=== PATIENT | male | born 1950 | race Caucasian/White ===

== ENCOUNTER → 2017-02-03 | Outpatient (CLI) | payer BC ==
[~2017-02-03] MED LIST: ASPI81CH59 PO; CLOP75TA28 PO; LIS5T PO; MAGN400C2 PO; MULTTAB61 PO
== END | disposition home or self-care (01) ==
LOC: Rad HDHVI 14:52
PROVIDERS: ATTEND Internal Medicine Cardiovascular Disease
DX: I08.2 Rheumatic disorders of both aortic and tricuspid valves (principal); Z95.1 Presence of aortocoronary bypass graft
CPT/HCPCS: 93306

== ENCOUNTER → 2017-02-10 | Outpatient (CLI) | payer BC ==
[~2017-02-10] VITALS: Ht 180.3 cm; Wt 74.8 kg
[~2017-02-10] MED LIST changes: +ADENOSINE 63 MG in GIVE UN-DILUTED 0 ML IV ONE; +ADENOSINE 90 MG/30 ML INJ IV ONE
== END | disposition home or self-care (01) ==
LOC: Rad HDHVI 14:35
PROVIDERS: ATTEND Internal Medicine Cardiovascular Disease
DX: I11.0 Hypertensive heart disease with heart failure (principal); I50.42 Chronic combined systolic (congestive) and diastolic (congestive) heart failure; I63.9 Cerebral infarction, unspecified; E78.00 Pure hypercholesterolemia, unspecified
CPT/HCPCS: 78452; 93005; 96374; 96375; A9500; J0153

== ENCOUNTER → 2017-04-09 | Outpatient (CLI) | payer BC ==
[~2017-04-09] MED LIST changes: -ADENOSINE 63 MG in GIVE UN-DILUTED 0 ML IV ONE; -ADENOSINE 90 MG/30 ML INJ IV ONE; +IOHEXOL 350 MG/ML 100ML IJ ONE; +READI-CAT 2 (BARIUM SULF)(VANILLA SMOOTHIE) 450ML ONE
[2017-04-09 15:10] VITALS: BP 140/93
[2017-04-09 15:50] VITALS: BP 151/90
== END | disposition home or self-care (01) ==
LOC: Rad HDHVI 15:02
PROVIDERS: ATTEND Internal Medicine Cardiovascular Disease
DX: K57.30 Diverticulosis of large intestine without perforation or abscess without bleeding (principal); K40.20 Bilateral inguinal hernia, without obstruction or gangrene, not specified as recurrent; K59.00 Constipation, unspecified; N40.0 Benign prostatic hyperplasia without lower urinary tract symptoms; I70.0 Atherosclerosis of aorta; I70.1 Atherosclerosis of renal artery; I77.811 Abdominal aortic ectasia; J98.11 Atelectasis
CPT/HCPCS: 74177; 82565; G0463; Q9967; 96374

== ENCOUNTER → 2018-05-13 | Outpatient (CLI) | payer MEDICARE, OTHER ==
[~2018-05-13] MED LIST changes: -IOHEXOL 350 MG/ML 100ML IJ ONE; -READI-CAT 2 (BARIUM SULF)(VANILLA SMOOTHIE) 450ML ONE
== END | disposition home or self-care (01) ==
LOC: Rad HDHVI 15:12
PROVIDERS: ATTEND Internal Medicine Cardiovascular Disease
DX: I35.1 Nonrheumatic aortic (valve) insufficiency (principal); I10 Essential (primary) hypertension; E78.5 Hyperlipidemia, unspecified; Z86.73 Personal history of transient ischemic attack (TIA), and cerebral infarction without residual deficits
CPT/HCPCS: 93306

== ENCOUNTER → 2018-05-26 | Outpatient (CLI) | payer MEDICARE ==
[~2018-05-26] VITALS: Ht 180.3 cm; Wt 82.6 kg
[~2018-05-26] MED LIST changes: +ADENOSINE 69 MG in GIVE UN-DILUTED 0 ML IV ONE; +ADENOSINE 90 MG/30 ML INJ IV ONE
[2018-05-26 15:59] LABS: White Blood Cell 6.5 10^3/uL (4.4-10.8)
[2018-05-26 16:03] LABS: Basophils # (auto) 0 uL; Basophils % (auto) 0.4 % (0.0-2.0); Eosinophils # (auto) 0.1 uL; Eosinophils % (auto) 2.1 % (0.0-7.0); Hematocrit 52.7 % (41.0-53.0); Hemoglobin 18.4 g/dL (13.5-17.5); Lymphocytes # (auto) 2.2 uL; Lymphocytes % (auto) 33.4 % (10.0-50.0); Mean Corpuscular Hemoglobin 33.5 pg (28.0-32.0); Mean Corpuscular Hgb Conc. 34.9 g/dL (32.0-36.0); Mean Corpuscular Volume 95.9 fL (80.0-100.0); Monocytes # (auto) 0.6 uL; Monocytes % (auto) 9.2 % (0.0-12.0); Neutrophils # (auto) 3.5 uL; Neutrophils % (auto) 54.9 % (37.0-80.0); Nucleated Red Blood Cells % 0.6 %; Platelet Count (auto) 181 10^3/uL (140-450); Red Cell Distribution Width 12.9 % (11.8-14.3)
[2018-05-26 16:07] LABS: Albumin 3.6 g/dL (3.4-5.0); BUN/Creatinine Ratio 13.5; Potassium 4.2 mmol/L (3.5-5.1)
[2018-05-26 16:10] LABS: Total Protein 7.9 g/dL (6.4-8.2)
[2018-05-26 16:16] LABS: Free T4 (Free Thyroxine) 1.03 ng/dL (0.89-1.76); Prostate Specific Antigen 3.43 ng/mL (0.0-4.0)
== END | disposition home or self-care (01) ==
LOC: Rad HDHVI 14:16
PROVIDERS: ATTEND Internal Medicine Cardiovascular Disease
DX: E78.5 Hyperlipidemia, unspecified (principal); I10 Essential (primary) hypertension; E03.9 Hypothyroidism, unspecified; E11.9 Type 2 diabetes mellitus without complications; E55.9 Vitamin D deficiency, unspecified; D51.9 Vitamin B12 deficiency anemia, unspecified; C61 Malignant neoplasm of prostate; Z86.73 Personal history of transient ischemic attack (TIA), and cerebral infarction without residual deficits
CPT/HCPCS: 36415; 78452; 80053; 80061; 82306; 82607; 83036; 84153; 84403; 84439; 84443; 85025; 93005; 96374; 96375; A9500; J0153

== ENCOUNTER → 2020-02-08 | Outpatient (CLI) | payer MEDICARE, OTHER ==
[~2020-02-08] MED LIST changes: -ADENOSINE 69 MG in GIVE UN-DILUTED 0 ML IV ONE; -ADENOSINE 90 MG/30 ML INJ IV ONE; +MULT-1018 PO; -MULTTAB61 PO; +levoFLOXacin 500MG 100 ML IV ONE
[2020-02-08 12:00] VITALS: BP 142/97
--- NOTE | 2020-02-08 12:00 | NUR ---
CLINIC PT ARRIVED TO THE CHF CLINIC FROM BACK OFFICE WITH ORDERS FOR IV ANTIBIOTICS. A/OX4, AMBULATORY WITH CANE, BREATHING IS EVEN AND UNLABORED. PT HAS A COUGH AND A N95 MASK WAS PLACED ON THE PT A PRECAUTIONARY MEASURE DUE TO COVID 19.
--- NOTE | 2020-02-08 12:35 | NUR ---
IV insertion IV access obtained, via clean sterile technique by inserting 22 gauge catheter at after 1 attempt(s). IV secured properly. No trauma to site. Patient tolerated procedure well. LABS DRAWN AND SENT NOTE INSERTED BY MARIA DOLORES KENNY
--- NOTE | 2020-02-08 13:51 | NUR ---
EKG SINUS TACHYCARDIA 119 PT IS ASYMPTOMATIC
--- NOTE | 2020-02-08 13:52 | NUR ---
IV removal IV DC'd with sterile technique, catheter fully intact. Pressure dressing applied to site. Patient tolerated procedure well. Discharged with aftercare instructions per MD. NOTE: REMOVED BY MARIA DOLORES KENNY
[2020-02-08 14:05] LABS: Basophils # (auto) 0.1 10 ^3/uL (0-0.2); Basophils % (auto) 1.1 % (0.0-2.0); Eosinophils # (auto) 0.1 10 ^3/uL (0-0.8); Eosinophils % (auto) 1.5 % (0.0-7.0); Hematocrit 50.5 % (41.0-53.0); Hemoglobin 17.2 g/dL (13.5-17.5); Lymphocytes # (auto) 1.7 10 ^3/uL (0.4-5.4); Lymphocytes % (auto) 28.2 % (10.0-50.0); Mean Corpuscular Hemoglobin 33.3 pg (28.0-32.0); Mean Corpuscular Volume 97.9 fL (80.0-100.0); Monocytes # (auto) 0.7 10 ^3/uL (0-1.3); Monocytes % (auto) 10.8 % (0.0-12.0); Neutrophils # (auto) 3.6 10 ^3/uL (1.6-8.6); Neutrophils % (auto) 58.4 % (37.0-80.0); Nucleated Red Blood Cells % 0.1 %; Platelet Count (auto) 148 10^3/uL (140-450); Red Blood Cells 5.16 10^6/uL (4.5-5.90); Red Cell Distribution Width 14.1 % (11.8-14.3); White Blood Cell 6.1 10^3/uL (4.4-10.8)
--- NOTE | 2020-02-08 14:44 | NUR ---
ADDITIONAL LABS DRAWN AND SENT FOR POSSIBLE PRE OP WITH MD JIMENEZ
[2020-02-08 15:10] VITALS: BP 147/98
--- NOTE | 2020-02-08 15:10 | NUR ---
Discharge Instructions See e-MAR for any mediations given with this visit. Patient education given on disease process. Patient verbalized understanding. Previous labs reviewed. Patient discharged in stable condition, AND IS HEMODYNAMICALLY STABLE with after care instructions and follow up appointment ON FRIDAY. NOTE [place] IV [phone] ADMIN BY MARIA DOLORES KENNY EKG DONE BY NICO PERDOMO REVIEWED BY CELINE KENNY
[2020-02-08 15:32] LABS: INR 1.2 (0.9-1.15); Partial Thromboplastin Time 26.8 sec (23.0-31.2)
[2020-02-08 15:35] LABS: BUN/Creatinine Ratio 9.8; Calcium 9.8 mg/dL (8.5-10.1); Magnesium 2.4 mg/dL (1.6-2.6); Potassium 4.1 mmol/L (3.5-5.1)
== END | disposition home or self-care (01) ==
LOC: CHF HDHVI 12:17
PROVIDERS: ATTEND Internal Medicine Cardiovascular Disease
DX: J06.9 Acute upper respiratory infection, unspecified (principal); R79.1 Abnormal coagulation profile; I49.9 Cardiac arrhythmia, unspecified; I10 Essential (primary) hypertension; D64.9 Anemia, unspecified; R70.0 Elevated erythrocyte sedimentation rate; R06.02 Shortness of breath; R00.0 Tachycardia, unspecified
CPT/HCPCS: 36415; 71046; 80048; 83735; 85025; 85610; 85652; 85730; 93005; 96365; G0463; J1956

== ENCOUNTER → 2020-06-09 | Outpatient (CLI) | payer OTHER ==
[~2020-06-09] MED LIST changes: -levoFLOXacin 500MG 100 ML IV ONE
[2020-06-09 14:42] LABS: Monocytes # (auto) 0.7 10 ^3/uL (0-1.3); Neutrophils # (auto) 3.5 10 ^3/uL (1.6-8.6); Nucleated Red Blood Cells % 0.1 %; Red Cell Distribution Width 13.3 % (11.8-14.3)
[2020-06-09 14:44] LABS: Basophils # (auto) 0 10 ^3/uL (0-0.2); Basophils % (auto) 0.6 % (0.0-2.0); Eosinophils # (auto) 0.1 10 ^3/uL (0-0.8); Eosinophils % (auto) 2.1 % (0.0-7.0); Hematocrit 53.7 % (41.0-53.0); Hemoglobin 18.5 g/dL (13.5-17.5); Lymphocytes # (auto) 2.3 10 ^3/uL (0.4-5.4); Mean Corpuscular Hemoglobin 34.1 pg (28.0-32.0); Mean Corpuscular Hgb Conc. 34.4 g/dL (32.0-36.0); Mean Corpuscular Volume 99.1 fL (80.0-100.0); Monocytes % (auto) 10.4 % (0.0-12.0); Neutrophils % (auto) 52.9 % (37.0-80.0); Platelet Count (auto) 168 10^3/uL (140-450); Red Blood Cells 5.42 10^6/uL (4.5-5.90); White Blood Cell 6.7 10^3/uL (4.4-10.8)
[2020-06-09 16:19] LABS: Albumin 3.1 g/dL (3.4-5.0); Anion Gap 8 (5-15); Blood Urea Nitrogen 10 mg/dL (7-18); Calcium 9.2 mg/dL (8.5-10.1); Carbon Dioxide 25 mmol/L (21-32); Chloride 106 mmol/L (98-107); Glucose 79 mg/dL (74-106); Potassium 4.4 mmol/L (3.5-5.1); Sodium 139 mmol/L (136-145)
[2020-06-09 16:23] LABS: Alanine Aminotransferase 31 U/L (16-61); Alkaline Phosphatase 136 U/L (45-117); Aspartate Aminotransferase 46 U/L (15-37); BUN/Creatinine Ratio 9.3; Bilirubin, Total 1.1 mg/dL (0.2-1.0); Cholesterol 146 mg/dL (< 200); GFR African American 87 mL/min; GFR Non-African American 72 mL/min; HDL Cholesterol 53 mg/dL (40-59); LDL Cholesterol 91 mg/dL (< 100); Total Protein 8.5 g/dL (6.4-8.2); Triglycerides 103 mg/dL (< 150)
== END | disposition home or self-care (01) ==
LOC: LAB 14:29
PROVIDERS: ATTEND Nurse Practitioner
DX: I10 Essential (primary) hypertension (principal); E78.5 Hyperlipidemia, unspecified
CPT/HCPCS: 36415; 80053; 80061; 84443; 85025

== ENCOUNTER → 2020-08-01 | Outpatient (CLI) | payer OTHER ==
[~2020-08-01] VITALS: Ht 177.8 cm; Wt 81.6 kg
[~2020-08-01] MED LIST changes: +ADENOSINE 69 MG in GIVE UN-DILUTED 0 ML IV ONE; +ADENOSINE 90 MG/30 ML INJ IV ONE
== END | disposition home or self-care (01) ==
LOC: Rad HDHVI 12:59
PROVIDERS: ATTEND Internal Medicine Cardiovascular Disease
DX: I11.0 Hypertensive heart disease with heart failure (principal); I50.42 Chronic combined systolic (congestive) and diastolic (congestive) heart failure; I25.5 Ischemic cardiomyopathy; I25.10 Atherosclerotic heart disease of native coronary artery without angina pectoris; E78.5 Hyperlipidemia, unspecified; Z95.0 Presence of cardiac pacemaker; Z95.1 Presence of aortocoronary bypass graft
CPT/HCPCS: 78452; 93005; 96374; 96375; A9500; J0153

== ENCOUNTER → 2020-08-16 | Outpatient (CLI) | payer OTHER ==
[~2020-08-16] MED LIST changes: -ADENOSINE 69 MG in GIVE UN-DILUTED 0 ML IV ONE; -ADENOSINE 90 MG/30 ML INJ IV ONE
== END | disposition home or self-care (01) ==
LOC: Rad HDHVI 15:03
PROVIDERS: ATTEND Internal Medicine Cardiovascular Disease
DX: I10 Essential (primary) hypertension (principal); R06.02 Shortness of breath
CPT/HCPCS: 93306

== ENCOUNTER → 2021-07-18 | Outpatient (CLI) | payer OTHER ==
[2021-07-18 14:45] LABS: Basophils # (auto) 0 10 ^3/uL (0-0.2); Basophils % (auto) 0.7 % (0.0-2.0); Eosinophils # (auto) 0.2 10 ^3/uL (0-0.8); Eosinophils % (auto) 3.1 % (0.0-7.0); Hematocrit 47.5 % (41.0-53.0); Hemoglobin 16.5 g/dL (13.5-17.5); Lymphocytes # (auto) 1.5 10 ^3/uL (0.4-5.4); Lymphocytes % (auto) 28.3 % (10.0-50.0); Mean Corpuscular Hemoglobin 33.2 pg (28.0-32.0); Mean Corpuscular Hgb Conc. 34.8 g/dL (32.0-36.0); Mean Corpuscular Volume 95.7 fL (80.0-100.0); Monocytes # (auto) 0.6 10 ^3/uL (0-1.3); Monocytes % (auto) 11.5 % (0.0-12.0); Neutrophils # (auto) 2.9 10 ^3/uL (1.6-8.6); Neutrophils % (auto) 56.4 % (37.0-80.0); Nucleated Red Blood Cells % 0.1 %; Red Blood Cells 4.97 10^6/uL (4.5-5.90); Red Cell Distribution Width 14.1 % (11.8-14.3); White Blood Cell 5.2 10^3/uL (4.4-10.8)
[2021-07-18 15:04] LABS: Calcium 9.2 mg/dL (8.5-10.1); Potassium 4.2 mmol/L (3.5-5.1)
[2021-07-18 15:09] LABS: BUN/Creatinine Ratio 11.1; Bilirubin, Total 1.2 mg/dL (0.2-1.0); Total Protein 7.6 g/dL (6.4-8.2)
[2021-07-18 16:39] LABS: Urine Blood Negative /uL (Negative); Urine Specific Gravity 1.029 (1.001-1.035)
== END | disposition home or self-care (01) ==
LOC: LAB 14:18
PROVIDERS: ATTEND Nurse Practitioner
DX: E78.5 Hyperlipidemia, unspecified (principal); I10 Essential (primary) hypertension; E03.9 Hypothyroidism, unspecified; R30.0 Dysuria
CPT/HCPCS: 36415; 80053; 80061; 81003; 84153; 84443; 85025

== ENCOUNTER → 2022-06-26 | Outpatient (CLI) | payer OTHER ==
[2022-06-26 13:04] LABS: Urine Blood Negative /uL (Negative); Urine Specific Gravity 1.025 (1.001-1.035)
[2022-06-26 13:05] LABS: Basophils # (auto) 0 10 ^3/uL (0-0.2); Basophils % (auto) 0.7 % (0.0-2.0); Eosinophils # (auto) 0.2 10 ^3/uL (0-0.8); Eosinophils % (auto) 3.3 % (0.0-7.0); Hemoglobin 16.3 g/dL (13.5-17.5); Lymphocytes # (auto) 2.3 10 ^3/uL (0.4-5.4); Lymphocytes % (auto) 36.1 % (10.0-50.0); Mean Corpuscular Hemoglobin 31.6 pg (28.0-32.0); Monocytes # (auto) 0.8 10 ^3/uL (0-1.3); Monocytes % (auto) 12.5 % (0.0-12.0); Neutrophils # (auto) 3.1 10 ^3/uL (1.6-8.6); Neutrophils % (auto) 47.4 % (37.0-80.0); Nucleated Red Blood Cells % 0.1 %; Red Blood Cells 5.16 10^6/uL (4.5-5.90); White Blood Cell 6.5 10^3/uL (4.4-10.8)
[2022-06-26 13:33] LABS: Calcium 8.8 mg/dL (8.5-10.1)
[2022-06-26 13:39] LABS: Bilirubin, Total 1.5 mg/dL (0.2-1.0); Potassium 4.1 mmol/L (3.5-5.1); Total Protein 7.7 g/dL (6.4-8.2)
== END | disposition home or self-care (01) ==
LOC: LAB 12:41
PROVIDERS: ATTEND Nurse Practitioner
DX: I10 Essential (primary) hypertension (principal); E03.9 Hypothyroidism, unspecified; E78.5 Hyperlipidemia, unspecified
CPT/HCPCS: 36415; 80053; 80061; 81003; 84443; 85025

== ENCOUNTER 2022-08-19 15:50 | Inpatient (IN) | payer OTHER ==
[~2022-08-19] VITALS: Ht 180.3 cm; Wt 78.1 kg
[2022-08-19] MEDS ORDERED: ASPirin 81 mg TAB PO ONE (16:45)
[2022-08-19 17:20] LABS: Basophils # (auto) 0 10 ^3/uL (0-0.2); Basophils % (auto) 0.5 % (0.0-2.0); Eosinophils # (auto) 0.1 10 ^3/uL (0-0.8); Eosinophils % (auto) 1.1 % (0.0-7.0); Hematocrit 47.4 % (41.0-53.0); Hemoglobin 16.1 g/dL (13.5-17.5); Lymphocytes # (auto) 1.2 10 ^3/uL (0.4-5.4); Lymphocytes % (auto) 22.5 % (10.0-50.0); Mean Corpuscular Hemoglobin 31.3 pg (28.0-32.0); Mean Corpuscular Volume 92.1 fL (80.0-100.0); Monocytes # (auto) 0.7 10 ^3/uL (0-1.3); Monocytes % (auto) 13.5 % (0.0-12.0); Neutrophils # (auto) 3.2 10 ^3/uL (1.6-8.6); Neutrophils % (auto) 62.4 % (37.0-80.0); Nucleated Red Blood Cells % 0.1 %; Red Blood Cells 5.14 10^6/uL (4.5-5.90); Red Cell Distribution Width 14.5 % (11.8-14.3); White Blood Cell 5.2 10^3/uL (4.4-10.8)
[2022-08-19 17:36] LABS: Albumin 2.8 g/dL (3.4-5.0); Calcium 8.8 mg/dL (8.5-10.1); Magnesium 2.3 mg/dL (1.6-2.6)
[2022-08-19 17:41] LABS: INR 1.21 (0.9-1.15); Partial Thromboplastin Time 30.7 sec (24.6-33.4)
[2022-08-19 17:46] LABS: BUN/Creatinine Ratio 9.9 (10.0-20.0); Bilirubin, Total 1.3 mg/dL (0.2-1.0); Total Protein 7.3 g/dL (6.4-8.2)
[2022-08-19] MEDS ORDERED: MORPHINE SULFATE INJ 2 MG/ml SYRG IV PRN (22:15)
[2022-08-19] MEDS ORDERED: ACETAMINOPHEN 325 MG TAB PO PRN (22:15)
[2022-08-19] MEDS ORDERED: NITROGLYCERIN 0.4 MG SL TAB SL PRN (22:15)
[2022-08-19] MEDS: MAGNESIUM OXIDE 400 MG TAB PO SCH (22:22)
[2022-08-19] MEDS ORDERED: MECLIZINE HCL 25 MG TAB PO PRN (22:30)
[2022-08-19] MEDS: SODIUM CHLORIDE 0.9% 1,000 ML IV SCH (22:35)
[2022-08-20] MEDS ORDERED: ALBUTEROL SULF 2.5 MG/0.5ML(0.5%) NEB SOLN NEB PRN (00:30)
[2022-08-20 00:49] LABS: Urine Bacteria NONE SEEN /hpf (None Seen); Urine Blood Negative /uL (Negative); Urine Hyaline Cast FEW /lpf (0 - 2); Urine Mucus FEW (None Seen); Urine Specific Gravity 1.029 (1.001-1.035); Urine WBC 4 /hpf (0 - 3)
[2022-08-20 01:04] LABS: Alcohol, Urine < 3.0 mg/dL (0-10); Amphetamine Screen, Urine NEGATIVE (NEGATIVE); Barbiturate Scree,Urine NEGATIVE (NEGATIVE); Benzodiazephine Screen, Urine NEGATIVE (NEGATIVE); Cannabinoid Screen, Urine NEGATIVE (NEGATIVE); Cocaine Screen, Urine NEGATIVE (NEGATIVE); Opiate Scree,Urine NEGATIVE (NEGATIVE); Phencyclidine Screen, Urine NEGATIVE (NEGATIVE)
[2022-08-20 01:43] VITALS: BP 95/50
[2022-08-20 05:39] LABS: Basophils # (auto) 0 10 ^3/uL (0-0.2); Basophils % (auto) 0.6 % (0.0-2.0); Eosinophils # (auto) 0.2 10 ^3/uL (0-0.8); Eosinophils % (auto) 3.6 % (0.0-7.0); Hematocrit 41.6 % (41.0-53.0); Hemoglobin 14.5 g/dL (13.5-17.5); Lymphocytes # (auto) 1.8 10 ^3/uL (0.4-5.4); Lymphocytes % (auto) 35.1 % (10.0-50.0); Mean Corpuscular Hgb Conc. 34.9 g/dL (32.0-36.0); Mean Corpuscular Volume 91.8 fL (80.0-100.0); Monocytes # (auto) 0.7 10 ^3/uL (0-1.3); Monocytes % (auto) 13.2 % (0.0-12.0); Neutrophils # (auto) 2.4 10 ^3/uL (1.6-8.6); Neutrophils % (auto) 47.5 % (37.0-80.0); Nucleated Red Blood Cells % 0.1 %; Red Blood Cells 4.54 10^6/uL (4.5-5.90); Red Cell Distribution Width 14.7 % (11.8-14.3); White Blood Cell 5.1 10^3/uL (4.4-10.8)
[2022-08-20 05:55] LABS: Albumin 2.4 g/dL (3.4-5.0); Calcium 8.3 mg/dL (8.5-10.1); Potassium 4.1 mmol/L (3.5-5.1)
[2022-08-20 05:59] LABS: BUN/Creatinine Ratio 11.1 (10.0-20.0); Bilirubin, Total 1.1 mg/dL (0.2-1.0); Total Protein 6.5 g/dL (6.4-8.2)
[2022-08-20] MEDS ORDERED: LISINOPRIL 5 MG TAB PO SCH (10:00)
[2022-08-20] MEDS: ENOXAPARIN SOD 40 MG/0.4 ML SYRINGE SC SCH (10:00)
[2022-08-20] MEDS: MULTIPLE VITAMIN TAB PO SCH (10:18)
[2022-08-20] MEDS: MAGNESIUM OXIDE 400 MG TAB PO SCH ×2 (10:18→22:35)
[2022-08-20] MEDS: CLOPIDOGREL BISULFATE 75 MG TAB PO SCH (10:18)
[2022-08-20] MEDS: ASPirin 81 mg TAB PO SCH (10:19)
[2022-08-20] MEDS ORDERED: MECL1TAB42 PO (11:39)
[2022-08-20] MEDS: SODIUM CHLORIDE 0.9% 1,000 ML IV SCH (15:00)
[2022-08-20 22:00] VITALS: BP 125/70
[2022-08-20] MEDS: ATORVASTATIN 20 MG TAB PO SCH (22:35)
[2022-08-21] VITALS (7 sets, daily range): BP systolic 102–132; BP diastolic 64–78
[2022-08-21 05:55] LABS: Basophils # (auto) 0 10 ^3/uL (0-0.2); Basophils % (auto) 0.7 % (0.0-2.0); Eosinophils # (auto) 0.3 10 ^3/uL (0-0.8); Eosinophils % (auto) 5.5 % (0.0-7.0); Hematocrit 42.5 % (41.0-53.0); Hemoglobin 14.6 g/dL (13.5-17.5); Lymphocytes # (auto) 1.7 10 ^3/uL (0.4-5.4); Lymphocytes % (auto) 34.4 % (10.0-50.0); Mean Corpuscular Hemoglobin 31.7 pg (28.0-32.0); Mean Corpuscular Hgb Conc. 34.4 g/dL (32.0-36.0); Mean Corpuscular Volume 92.1 fL (80.0-100.0); Monocytes # (auto) 0.7 10 ^3/uL (0-1.3); Monocytes % (auto) 13.8 % (0.0-12.0); Neutrophils # (auto) 2.3 10 ^3/uL (1.6-8.6); Neutrophils % (auto) 45.6 % (37.0-80.0); Nucleated Red Blood Cells % 0.3 %; Red Blood Cells 4.62 10^6/uL (4.5-5.90); Red Cell Distribution Width 14.4 % (11.8-14.3)
[2022-08-21 06:25] LABS: Albumin 2.4 g/dL (3.4-5.0); BUN/Creatinine Ratio 12.5 (10.0-20.0); Bilirubin, Total 1.1 mg/dL (0.2-1.0); Calcium 8.5 mg/dL (8.5-10.1); Total Protein 6.4 g/dL (6.4-8.2)
[2022-08-21] MEDS: ENOXAPARIN SOD 40 MG/0.4 ML SYRINGE SC SCH (10:00)
[2022-08-21] MEDS: CLOPIDOGREL BISULFATE 75 MG TAB PO SCH (10:19)
[2022-08-21] MEDS: ASPirin 81 mg TAB PO SCH (10:19)
[2022-08-21] MEDS: MAGNESIUM OXIDE 400 MG TAB PO SCH ×2 (10:19→21:19)
[2022-08-21] MEDS: MULTIPLE VITAMIN TAB PO SCH (10:19)
[2022-08-21] MEDS: ATORVASTATIN 20 MG TAB PO SCH (21:19)
[2022-08-22 05:00] VITALS: BP 116/79
[2022-08-22 07:51] LABS: INR 1.21 (0.9-1.15); Partial Thromboplastin Time 29.3 sec (24.6-33.4)
[2022-08-22 08:00] VITALS: BP 98/63
[2022-08-22 09:00] VITALS: BP 98/63
[2022-08-22] MEDS: MULTIPLE VITAMIN TAB PO SCH (09:55)
[2022-08-22] MEDS: MAGNESIUM OXIDE 400 MG TAB PO SCH (09:55)
[2022-08-22] MEDS ORDERED: VANCOMYCIN 1GM/250ML 250 ML IV ONE (10:15)
[2022-08-22 16:56] VITALS: BP 130/91
== END 2022-08-22 20:36 | disposition home or self-care (01) | DRG 308 ==
LOC: ER 15:50 → TELE 22:18 → TELE-WESTW 08-20 21:38
PROVIDERS: ADMIT Nurse Practitioner Family; ATTEND Internal Medicine
DX: T82.120A Displacement of cardiac electrode, initial encounter (principal); I50.33 Acute on chronic diastolic (congestive) heart failure; J96.01 Acute respiratory failure with hypoxia; E44.0 Moderate protein-calorie malnutrition; J90 Pleural effusion, not elsewhere classified; D68.59 Other primary thrombophilia; H81.10 Benign paroxysmal vertigo, unspecified ear; I67.1 Cerebral aneurysm, nonruptured; I11.0 Hypertensive heart disease with heart failure; I49.3 Ventricular premature depolarization; I48.91 Unspecified atrial fibrillation; Y71.2 Prosthetic and other implants, materials and accessory cardiovascular devices associated with adverse incidents; E78.5 Hyperlipidemia, unspecified; J44.9 Chronic obstructive pulmonary disease, unspecified; E03.9 Hypothyroidism, unspecified; F17.200 Nicotine dependence, unspecified, uncomplicated; I25.10 Atherosclerotic heart disease of native coronary artery without angina pectoris; E11.51 Type 2 diabetes mellitus with diabetic peripheral angiopathy without gangrene; I49.5 Sick sinus syndrome; Z95.1 Presence of aortocoronary bypass graft; Z95.0 Presence of cardiac pacemaker; Z86.73 Personal history of transient ischemic attack (TIA), and cerebral infarction without residual deficits; Z79.899 Other long term (current) drug therapy; Z79.02 Long term (current) use of antithrombotics/antiplatelets; Z79.82 Long term (current) use of aspirin; Z80.9 Family history of malignant neoplasm, unspecified; Z82.49 Family history of ischemic heart disease and other diseases of the circulatory system; Z82.5 Family history of asthma and other chronic lower respiratory diseases; Z68.24 Body mass index [BMI] 24.0-24.9, adult
CPT/HCPCS: 36415; 70450; 71045; 80053; 80307; 81001; 82962; 83735; 83880; 84443; 84484; 85025; 85610; 85730; 86850; 86900; 86901; 93005; 93886; 97116; 97163; 97530; G0378

== ENCOUNTER → 2022-09-25 | Outpatient (CLI) | payer OTHER ==
[~2022-09-25] MED LIST changes: +ASCO500T11 PO; -ASPI81CH59 PO; +ATOR20TA PO; +CHOL50007 PO; +ESOM40CA39 PO; +LEVO50TA66 PO; -LIS5T PO; +MECL1TAB42 PO; +ZINC50TA7 PO
[2022-09-25 08:30] VITALS: BP 142/86
[2022-09-25 08:56] VITALS: BP 144/79
== END | disposition home or self-care (01) ==
LOC: Rad HDHVI 08:15
PROVIDERS: ATTEND Internal Medicine Cardiovascular Disease
DX: Z01.810 Encounter for preprocedural cardiovascular examination (principal); R00.0 Tachycardia, unspecified; I49.3 Ventricular premature depolarization; T82.190A Other mechanical complication of cardiac electrode, initial encounter; R07.89 Other chest pain; X58.XXXA Exposure to other specified factors, initial encounter; Z95.0 Presence of cardiac pacemaker
CPT/HCPCS: 71046; 93005; G0463

== ENCOUNTER 2022-09-26 09:01 | Day surgery (SDC) | payer OTHER ==
[2022-09-25 09:39] LABS: Basophils # (auto) 0 10 ^3/uL (0-0.2); Basophils % (auto) 0.6 % (0.0-2.0); Eosinophils # (auto) 0.1 10 ^3/uL (0-0.8); Eosinophils % (auto) 2.9 % (0.0-7.0); Hematocrit 46.8 % (41.0-53.0); Lymphocytes # (auto) 1.7 10 ^3/uL (0.4-5.4); Lymphocytes % (auto) 35.4 % (10.0-50.0); Mean Corpuscular Hemoglobin 31.5 pg (28.0-32.0); Mean Corpuscular Hgb Conc. 34.1 g/dL (32.0-36.0); Mean Corpuscular Volume 92.4 fL (80.0-100.0); Monocytes # (auto) 0.6 10 ^3/uL (0-1.3); Monocytes % (auto) 12.8 % (0.0-12.0); Neutrophils # (auto) 2.4 10 ^3/uL (1.6-8.6); Neutrophils % (auto) 48.3 % (37.0-80.0); Nucleated Red Blood Cells % 0.1 %; Red Blood Cells 5.07 10^6/uL (4.5-5.90); Red Cell Distribution Width 15.1 % (11.8-14.3); White Blood Cell 4.9 10^3/uL (4.4-10.8)
[2022-09-25 10:22] LABS: BUN/Creatinine Ratio 12.4 (10.0-20.0); Calcium 8.8 mg/dL (8.5-10.1); Potassium 4.3 mmol/L (3.5-5.1)
[2022-09-25 11:28] LABS: INR 1.19 (0.9-1.15); Partial Thromboplastin Time 30.2 sec (24.6-33.4)
[~2022-09-26] VITALS: Ht 180.3 cm; Wt 83.0 kg
[2022-09-26] MEDS ORDERED: VANCOMYCIN 1GM/250ML 250 ML IV ONE ×3 (10:00→13:14)
[2022-09-26] MEDS ORDERED: LIDOCAINE 2%HCL (LOCAL ANESTH.) INJ 20ML MDV ONE (13:09)
[2022-09-26] MEDS ORDERED: VANCOMYCIN HCL 1000 MG VL ONE (13:11)
[2022-09-26] MEDS ORDERED: fentaNYL CITRATE 100 MCG/2 ML VL ONE (13:11)
[2022-09-26] MEDS ORDERED: MIDAZOLAM HCL 2MG/2ML 2ml VIAL (1mg/ml) ONE (13:12)
== END 2022-09-26 16:44 | disposition home or self-care (01) ==
LOC: CATH 09:01
PROVIDERS: ATTEND Internal Medicine Cardiovascular Disease
DX: T82.120A Displacement of cardiac electrode, initial encounter (principal); I49.5 Sick sinus syndrome; I48.91 Unspecified atrial fibrillation; I25.5 Ischemic cardiomyopathy; Z86.73 Personal history of transient ischemic attack (TIA), and cerebral infarction without residual deficits; I50.9 Heart failure, unspecified; I11.0 Hypertensive heart disease with heart failure; Z95.1 Presence of aortocoronary bypass graft; Z79.899 Other long term (current) drug therapy; Y83.8 Other surgical procedures as the cause of abnormal reaction of the patient, or of later complication, without mention of misadventure at the time of the procedure
CPT/HCPCS: 33207; 33233; 33235; 36415; 71045; 80048; 85025; 85610; 85730; 93005; C1769; C1785; C1898; J2250; J3010; J3370; 99152; 99153

== ENCOUNTER → 2023-05-13 | Outpatient (CLI) | payer OTHER | END | disposition home or self-care (01) | LOC: Rad HDHVI 15:49 | PROVIDERS: ATTEND Internal Medicine Cardiovascular Disease | DX: I08.3 Combined rheumatic disorders of mitral, aortic and tricuspid valves (principal); I77.819 Aortic ectasia, unspecified site; I10 Essential (primary) hypertension; I73.9 Peripheral vascular disease, unspecified | CPT/HCPCS: 93306 ==

== ENCOUNTER → 2023-06-06 | Outpatient (CLI) | payer OTHER ==
[2023-06-06 13:32] LABS: Basophils # (auto) 0 10 ^3/uL (0-0.2); Basophils % (auto) 0.8 % (0.0-2.0); Eosinophils # (auto) 0.1 10 ^3/uL (0-0.8); Eosinophils % (auto) 4.1 % (0.0-7.0); Hematocrit 43.8 % (41.0-53.0); Hemoglobin 14.6 g/dL (13.5-17.5); Lymphocytes # (auto) 1.3 10 ^3/uL (0.4-5.4); Lymphocytes % (auto) 36.3 % (10.0-50.0); Mean Corpuscular Hemoglobin 31.5 pg (28.0-32.0); Mean Corpuscular Hgb Conc. 33.4 g/dL (32.0-36.0); Mean Corpuscular Volume 94.5 fL (80.0-100.0); Monocytes # (auto) 0.4 10 ^3/uL (0-1.3); Neutrophils # (auto) 1.7 10 ^3/uL (1.6-8.6); Neutrophils % (auto) 46.8 % (37.0-80.0); Nucleated Red Blood Cells % 0.1 %; Red Blood Cells 4.64 10^6/uL (4.5-5.90); White Blood Cell 3.6 10^3/uL (4.4-10.8)
[2023-06-06 13:36] LABS: Urine Bacteria NONE SEEN /hpf (None Seen); Urine Blood Negative /uL (Negative); Urine Clarity Clear (Clear); Urine Color Yellow (Yellow); Urine Hyaline Cast FEW /lpf (0 - 2); Urine Mucus FEW (None Seen); Urine Protein, UAD TRACE (Negative); Urine Specific Gravity 1.029 (1.001-1.035); Urine WBC 4 /hpf (0 - 3); Urine pH 5.5 (5.0-8.0)
[2023-06-06 13:53] LABS: Alanine Aminotransferase 21 U/L (7-40); Albumin 3.3 g/dL (3.2-4.8); Alkaline Phosphatase 96 U/L (46-116); Anion Gap 6 (5-15); Aspartate Aminotransferase 43 U/L (13-40); BUN/Creatinine Ratio 9.9 (10.0-20.0); Bilirubin, Total 1.6 mg/dL (0.2-1.0); Blood Urea Nitrogen 8 mg/dL (9-23); Calcium 9.2 mg/dL (8.5-10.1); Carbon Dioxide 28 mmol/L (20-30); Chloride 107 mmol/L (98-107); Cholesterol 123 mg/dL (< 200); Glucose 89 mg/dL (74-106); HDL Cholesterol 47 mg/dL (40-59); LDL Cholesterol 68 mg/dL (< 100); Potassium 4.2 mmol/L (3.5-5.1); Sodium 141 mmol/L (136-145); Total Protein 6.5 g/dL (5.7-8.2); Triglycerides 60 mg/dL (< 150)
[2023-06-07 08:06] LABS: PSA Free 0.81 ng/mL; Prostate Specific Antigen 4.8 ng/mL (0.0-4.0)
== END | disposition home or self-care (01) ==
LOC: LAB 13:23
PROVIDERS: ATTEND Nurse Practitioner
DX: I10 Essential (primary) hypertension (principal); E78.5 Hyperlipidemia, unspecified; R73.9 Hyperglycemia, unspecified
CPT/HCPCS: 36415; 80053; 80061; 81001; 83036; 84153; 84154; 84443; 85025

== ENCOUNTER → 2023-06-10 | Outpatient (CLI) | payer OTHER ==
[~2023-06-10] VITALS: Ht 180.3 cm; Wt 79.4 kg
[~2023-06-10] MED LIST changes: +ADENOSINE 67 MG in GIVE UN-DILUTED 0 ML IV ONE; +ADENOSINE 90 MG/30 ML INJ IV ONE
== END | disposition home or self-care (01) ==
LOC: Rad HDHVI 13:18
PROVIDERS: ATTEND Internal Medicine Cardiovascular Disease
DX: I11.0 Hypertensive heart disease with heart failure (principal); I50.22 Chronic systolic (congestive) heart failure; E78.00 Pure hypercholesterolemia, unspecified; I49.5 Sick sinus syndrome; I48.20 Chronic atrial fibrillation, unspecified; Z95.0 Presence of cardiac pacemaker; Z95.1 Presence of aortocoronary bypass graft; Z79.899 Other long term (current) drug therapy
CPT/HCPCS: 78452; 93005; 96374; 96375; A9500; J0153

== ENCOUNTER → 2023-09-10 | Outpatient (CLI) | payer OTHER ==
[~2023-09-10] MED LIST changes: -ADENOSINE 67 MG in GIVE UN-DILUTED 0 ML IV ONE; -ADENOSINE 90 MG/30 ML INJ IV ONE; +LEVO50TA3 PO; -LEVO50TA66 PO
== END | disposition home or self-care (01) ==
LOC: Rad HDHVI 15:18
PROVIDERS: ATTEND Internal Medicine Cardiovascular Disease
DX: I10 Essential (primary) hypertension (principal); I73.9 Peripheral vascular disease, unspecified
CPT/HCPCS: 93880

== ENCOUNTER 2023-10-13 12:39 | Inpatient (IN) | payer OTHER ==
[~2023-10-13] VITALS: Ht 180.3 cm; Wt 74.9 kg
[2023-10-13 00:46] VITALS: PULSE 67; RESP 72; O2SAT 95
[2023-10-13 14:08] VITALS: PULSE 93; RESP 19; O2SAT 90
[2023-10-13 14:23] LABS: Basophils # (auto) 0 10 ^3/uL (0-0.2); Basophils % (auto) 0.3 % (0.0-2.0); Lymphocytes # (auto) 1.2 10 ^3/uL (0.4-5.4); Neutrophils # (auto) 5.3 10 ^3/uL (1.6-8.6); White Blood Cell 7.6 10^3/uL (4.4-10.8)
[2023-10-13 14:26] LABS: Eosinophils # (auto) 0 10 ^3/uL (0-0.8); Eosinophils % (auto) 0.5 % (0.0-7.0); Hematocrit 44.7 % (41.0-53.0); Hemoglobin 15.5 g/dL (13.5-17.5); Lymphocytes % (auto) 15.5 % (10.0-50.0); Mean Corpuscular Hemoglobin 32.7 pg (28.0-32.0); Mean Corpuscular Hgb Conc. 34.6 g/dL (32.0-36.0); Mean Corpuscular Volume 94.7 fL (80.0-100.0); Monocytes % (auto) 13.6 % (0.0-12.0); Neutrophils % (auto) 70.1 % (37.0-80.0); Red Blood Cells 4.72 10^6/uL (4.5-5.90); Red Cell Distribution Width 15.4 % (11.8-14.3)
[2023-10-13 14:39] LABS: INR 1.25 (0.9-1.15)
[2023-10-13 14:55] LABS: Albumin 3.4 g/dL (3.2-4.8); Alkaline Phosphatase 105 U/L (46-116); Anion Gap 7 (5-15); Aspartate Aminotransferase 92 U/L (13-40); Calcium 9.1 mg/dL (8.5-10.1); Carbon Dioxide 26 mmol/L (20-30); Chloride 104 mmol/L (98-107); Glucose 94 mg/dL (74-106); Sodium 137 mmol/L (136-145)
[2023-10-13 14:56] LABS: Bilirubin, Total 3.5 mg/dL (0.2-1.0); Total Protein 7.2 g/dL (5.7-8.2)
[2023-10-13 15:02] LABS: Alanine Aminotransferase 42 U/L (7-40); BUN/Creatinine Ratio 12.2 (10.0-20.0); Blood Urea Nitrogen 11 mg/dL (9-23)
[2023-10-13 15:14] LABS: Lactic Acid w/Reflex 2.4 mmol/L (0.4-2.0)
[2023-10-13] MEDS ORDERED: NITROGLYCERIN 0.4 MG SL TAB SL PRN ×2 (16:00→21:00)
[2023-10-13] MEDS ORDERED: ACETAMINOPHEN 325 MG TAB PO PRN (16:00)
[2023-10-13] MEDS ORDERED: MORPHINE SULFATE 4 MG/ML SYR/VIAL IV PRN (16:00)
[2023-10-13] MEDS ORDERED: ONDANSETRON HCL 4 MG/2 ML VIAL IV PRN (16:00)
[2023-10-13] MEDS ORDERED: HEPARIN SODIUM (PORCINE) 5000 UNITS/ML 1ML VIAL IV ONE (16:45)
[2023-10-13] MEDS: HEPARIN SODIUM (PORCINE) 5000 UNITS/ML 1ML VIAL IV ONE (17:44)
[2023-10-13] MEDS: PANTOPRAZOLE 40 MG/10 ML VIAL INJ IV ONE (18:00)
[2023-10-13] MEDS ORDERED: LISI10TA34 PO (18:38)
[2023-10-13] MEDS ORDERED: APIX5TAB PO (18:38)
[2023-10-13] MEDS ORDERED: TAMS0.4C36 PO (18:38)
[2023-10-13 18:55] LABS: INR 1.33 (0.9-1.15); Prothrombin Time 13.8 sec (9.3-11.8)
[2023-10-13 19:20] VITALS: PULSE 89; RESP 23; O2SAT 93
[2023-10-13 19:44] LABS: Urine Bacteria None Seen /hpf (None Seen)
[2023-10-13 20:42] LABS: Urine Blood Negative /uL (Negative); Urine Clarity Clear (Clear); Urine Color Dark-Orange (Yellow); Urine Mucus FEW (None Seen); Urine Protein, UAD 1+ (Negative); Urine Specific Gravity 1.039 (1.001-1.035); Urine Urobilinogen OVER mg/dL (Negative); Urine WBC 3 /hpf (0 - 3)
[2023-10-13] MEDS: FUROSEMIDE 20 MG/2 ML VIAL IV ONE (20:47)
[2023-10-13] MEDS ORDERED: MORPHINE SULFATE INJ 2 MG/ml SYRG IV PRN (21:00)
[2023-10-13] MEDS: HEPARIN DRIP/D5W 100UNITS/ML 250 ML IV SCH (21:14)
[2023-10-13] MEDS ORDERED: ENOXAPARIN SOD 100 MG/1 ML SYRINGE SC SCH (22:00)
[2023-10-13] MEDS ORDERED: ATORVASTATIN 20 MG TAB PO SCH (22:00)
[2023-10-13] MEDS: METOPROLOL TARTRATE 25 MG TAB PO SCH (22:44)
[2023-10-14] VITALS (11 sets, daily range): BP systolic 90–116; BP diastolic 53–65; PULSE 51–94; RESP 16–72; TEMP 97.8–98.5; O2SAT 92–95
[2023-10-14 06:07] LABS: Chloride 106 mmol/L (98-107); Potassium 3.7 mmol/L (3.5-5.1); Sodium 139 mmol/L (136-145)
[2023-10-14 06:08] LABS: Anion Gap 7 (5-15); Calcium 8.4 mg/dL (8.5-10.1); Carbon Dioxide 26 mmol/L (20-30)
[2023-10-14] MEDS: FUROSEMIDE 20 MG/2 ML VIAL IV SCH (06:08)
[2023-10-14 06:13] LABS: BUN/Creatinine Ratio 16.5 (10.0-20.0); Blood Urea Nitrogen 14 mg/dL (9-23); Glucose 83 mg/dL (74-106); Triglycerides 69 mg/dL (< 150)
[2023-10-14 06:14] LABS: LDL Cholesterol 48 mg/dL (< 100)
[2023-10-14 06:15] LABS: Cholesterol 92 mg/dL (< 200); HDL Cholesterol 32 mg/dL (40-59)
[2023-10-14 06:20] LABS: Basophils # (auto) 0 10 ^3/uL (0-0.2); Basophils % (auto) 0.4 % (0.0-2.0); Eosinophils # (auto) 0.1 10 ^3/uL (0-0.8); Eosinophils % (auto) 1.3 % (0.0-7.0); Hematocrit 39.1 % (41.0-53.0); Hemoglobin 13.5 g/dL (13.5-17.5); Lymphocytes # (auto) 1.2 10 ^3/uL (0.4-5.4); Lymphocytes % (auto) 14.6 % (10.0-50.0); Mean Corpuscular Hemoglobin 32.4 pg (28.0-32.0); Mean Corpuscular Hgb Conc. 34.5 g/dL (32.0-36.0); Mean Corpuscular Volume 93.8 fL (80.0-100.0); Monocytes # (auto) 1.1 10 ^3/uL (0-1.3); Monocytes % (auto) 13.7 % (0.0-12.0); Neutrophils # (auto) 5.6 10 ^3/uL (1.6-8.6); Red Blood Cells 4.17 10^6/uL (4.5-5.90); Red Cell Distribution Width 15.5 % (11.8-14.3)
[2023-10-14 06:39] LABS: INR 1.03 (0.9-1.15); Partial Thromboplastin Time 30.6 SEC (24.5-34.5); Prothrombin Time 10.9 sec (9.3-11.8)
[2023-10-14] MEDS ORDERED: VANCOMYCIN PER PHARMACY 0 MG IV SCH (08:30)
[2023-10-14] MEDS ORDERED: PATIENTS OWN MEDICATION (Esomeprazole Magnesium Trihydr (Nexium) 1 CAP) PO SCH (10:00)
[2023-10-14 11:21] LABS: Erythrocyte Sedimentation Rate 15 mm/hr (0-20)
[2023-10-14] MEDS: PANTOPRAZOLE 40 MG/10 ML VIAL INJ IV SCH (11:44)
[2023-10-14] MEDS: DOCUSATE SOD 100 MG CAP PO SCH (11:44)
[2023-10-14] MEDS: CLOPIDOGREL BISULFATE 75 MG TAB PO SCH (11:45)
[2023-10-14] MEDS: ASPirin 81 mg TAB PO SCH (11:45)
[2023-10-14] MEDS: LEVOTHYROXINE SODIUM 50 MCG TAB PO SCH (11:45)
[2023-10-14] MEDS: ATORVASTATIN 20 MG TAB PO SCH (11:46)
[2023-10-14] MEDS: VANCOMYCIN 1GM/200ML 200 ML IV ONE (11:46)
[2023-10-14] MEDS ORDERED: HYDR2.5C TOP (13:25)
[2023-10-14] MEDS ORDERED: HYDRX10T PO (13:25)
[2023-10-14] MEDS ORDERED: TRAZ-227 PO (13:25)
[2023-10-14] MEDS: LEVOTHYROXINE SODIUM 50 MCG TAB PO ONE (17:00)
[2023-10-14] MEDS: cefTRIAXone 1GM/50ML D5W 50 ML IV ONE (17:00)
[2023-10-14 18:47] LABS: COVID19 ANTIGEN SOFIA FIA NEGATIVE (NEGATIVE); Rapid Influenza A Negative (Negative); Rapid Influenza B Negative (Negative)
[2023-10-14] MEDS: COLCHICINE 0.6 MG CAP PO SCH (21:30)
[2023-10-15] VITALS (9 sets, daily range): BP systolic 98–111; BP diastolic 54–62; PULSE 38–72; RESP 16–20; TEMP 97.7–98.5; O2SAT 91–100
[2023-10-15] MEDS: VANCOMYCIN 1GM/200ML 200 ML IV SCH (04:14)
[2023-10-15 06:11] LABS: Basophils # (auto) 0 10 ^3/uL (0-0.2); Basophils % (auto) 0.5 % (0.0-2.0); Eosinophils # (auto) 0.4 10 ^3/uL (0-0.8); Hematocrit 40.6 % (41.0-53.0); Hemoglobin 13.9 g/dL (13.5-17.5); Lymphocytes # (auto) 1.6 10 ^3/uL (0.4-5.4); Lymphocytes % (auto) 24.7 % (10.0-50.0); Mean Corpuscular Hemoglobin 32.4 pg (28.0-32.0); Mean Corpuscular Hgb Conc. 34.3 g/dL (32.0-36.0); Mean Corpuscular Volume 94.4 fL (80.0-100.0); Monocytes % (auto) 15.6 % (0.0-12.0); Neutrophils # (auto) 3.4 10 ^3/uL (1.6-8.6); Neutrophils % (auto) 53.2 % (37.0-80.0); Nucleated Red Blood Cells % 0.1 %; Red Cell Distribution Width 15.6 % (11.8-14.3); White Blood Cell 6.5 10^3/uL (4.4-10.8)
[2023-10-15] MEDS: LEVOTHYROXINE SODIUM 50 MCG TAB PO SCH (06:26)
[2023-10-15] MEDS: cefTRIAXone 1GM/50ML D5W 50 ML IV SCH (11:13)
[2023-10-16] VITALS (14 sets, daily range): BP systolic 96–148; BP diastolic 56–87; PULSE 41–82; RESP 14–20; TEMP 97.5–98.7; O2SAT 92–100
[2023-10-16] MEDS: fentaNYL CITRATE 100 MCG/2 ML VL ONE (07:33)
[2023-10-16] MEDS: ANGIOMAX 250 MG VIAL IV ONE (07:33)
[2023-10-16] MEDS: MIDAZOLAM HCL 2MG/2ML 2ml VIAL (1mg/ml) ONE (07:34)
[2023-10-16] MEDS: HEPARIN IN NS 1000Units/500mL 1,500 ML ONE (07:34)
[2023-10-16] MEDS: LIDOCAINE 2%HCL (LOCAL ANESTH.) INJ 20ML MDV ONE (07:34)
[2023-10-16] MEDS: IOHEXOL 350 MG/ML 100ML IJ ONE ×2 (07:34→08:41)
[2023-10-16] MEDS: SODIUM CHL 0.9% 0 ML ONE (07:34)
[2023-10-16] MEDS: VANCOMYCIN 750mg/150ml 150 ML IV SCH (22:24)
[2023-10-17] VITALS (7 sets, daily range): BP systolic 119–138; BP diastolic 54–93; PULSE 53–95; RESP 16–24; TEMP 97.8–98.3; O2SAT 89–94
[2023-10-17 12:35] LABS: Erythrocyte Sedimentation Rate 16 mm/hr (0-20)
[2023-10-17] MEDS: BETAMETHASONE DIPROP0.05% TOPICAL CREAM 15GM TOP ONE (18:00)
[2023-10-17] MEDS: TAMSULOSIN HYDROCHLORIDE 0.4 MG CAP PO SCH (18:00)
[2023-10-17] MEDS: BETAMETHASONE DIPROP0.05% TOPICAL CREAM 15GM TOP SCH (22:32)
[2023-10-18] VITALS (7 sets, daily range): BP systolic 109–126; BP diastolic 38–65; PULSE 38–103; RESP 16–20; TEMP 98–98.7; O2SAT 91–97
[2023-10-18 06:04] LABS: Basophils # (auto) 0 10 ^3/uL (0-0.2); Basophils % (auto) 0.7 % (0.0-2.0); Eosinophils # (auto) 0.3 10 ^3/uL (0-0.8); Eosinophils % (auto) 4.7 % (0.0-7.0); Hematocrit 43.3 % (41.0-53.0); Lymphocytes # (auto) 1.8 10 ^3/uL (0.4-5.4); Mean Corpuscular Hemoglobin 32.5 pg (28.0-32.0); Mean Corpuscular Hgb Conc. 34.6 g/dL (32.0-36.0); Mean Corpuscular Volume 93.9 fL (80.0-100.0); Monocytes # (auto) 0.7 10 ^3/uL (0-1.3); Monocytes % (auto) 10.6 % (0.0-12.0); Neutrophils # (auto) 3.7 10 ^3/uL (1.6-8.6); Red Blood Cells 4.61 10^6/uL (4.5-5.90); Red Cell Distribution Width 15.5 % (11.8-14.3); White Blood Cell 6.5 10^3/uL (4.4-10.8)
[2023-10-18 06:20] LABS: Anion Gap 6 (5-15); Carbon Dioxide 26 mmol/L (20-30); Chloride 107 mmol/L (98-107); Sodium 139 mmol/L (136-145)
[2023-10-18 06:22] LABS: Calcium 8.7 mg/dL (8.5-10.1)
[2023-10-18 06:26] LABS: Glucose 88 mg/dL (74-106)
[2023-10-18 06:27] LABS: BUN/Creatinine Ratio 17.1 (10.0-20.0); Blood Urea Nitrogen 14 mg/dL (9-23)
[2023-10-19] VITALS (7 sets, daily range): BP systolic 82–114; BP diastolic 50–72; PULSE 50–97; RESP 16–19; TEMP 98.1–98.5; O2SAT 93–95
[2023-10-19 06:09] LABS: Anion Gap 7 (5-15); Carbon Dioxide 23 mmol/L (20-30); Chloride 107 mmol/L (98-107); Sodium 137 mmol/L (136-145)
[2023-10-19 06:10] LABS: Calcium 8.6 mg/dL (8.5-10.1)
[2023-10-19 06:15] LABS: BUN/Creatinine Ratio 11.8 (10.0-20.0); Blood Urea Nitrogen 9 mg/dL (9-23); Glucose 85 mg/dL (74-106)
[2023-10-19] MEDS ORDERED: CLOTCRE3 EX (13:15)
[2023-10-19] MEDS ORDERED: TAMS-35 PO (13:15)
[2023-10-19] MEDS ORDERED: MET25T PO (13:15)
[2023-10-19] MEDS ORDERED: AUG875T PO (13:15)
[2023-10-19] MEDS ORDERED: COLC1CAP3 PO (13:46)
== END 2023-10-19 16:00 | disposition home or self-care (01) | DRG 871 ==
LOC: ER 12:39 → TELE 20:51 → TELE-CENTR 23:46
PROVIDERS: ADMIT Internal Medicine; ATTEND Internal Medicine
PROC: 4A023N7 Measurement of Cardiac Sampling and Pressure, Left Heart, Percutaneous Approach (ICD-10-PCS; principal; 2023-10-16)
PROC: B2111ZZ Fluoroscopy of Multiple Coronary Arteries using Low Osmolar Contrast (ICD-10-PCS; 2023-10-16)
PROC: B2181ZZ Fluoroscopy of Left Internal Mammary Bypass Graft using Low Osmolar Contrast (ICD-10-PCS; 2023-10-16)
PROC: B2151ZZ Fluoroscopy of Left Heart using Low Osmolar Contrast (ICD-10-PCS; 2023-10-16)
PROC: B21F1ZZ Fluoroscopy of Other Bypass Graft using Low Osmolar Contrast (ICD-10-PCS; 2023-10-16)
PROC: B5171ZZ Fluoroscopy of Left Subclavian Vein using Low Osmolar Contrast (ICD-10-PCS; 2023-10-16)
DX: A41.9 Sepsis, unspecified organism (principal); I21.A1 Myocardial infarction type 2; I50.23 Acute on chronic systolic (congestive) heart failure; J96.01 Acute respiratory failure with hypoxia; I69.351 Hemiplegia and hemiparesis following cerebral infarction affecting right dominant side; I48.20 Chronic atrial fibrillation, unspecified; I11.0 Hypertensive heart disease with heart failure; J44.9 Chronic obstructive pulmonary disease, unspecified; E03.9 Hypothyroidism, unspecified; E78.5 Hyperlipidemia, unspecified; D69.6 Thrombocytopenia, unspecified; I25.10 Atherosclerotic heart disease of native coronary artery without angina pectoris; K80.20 Calculus of gallbladder without cholecystitis without obstruction; Z95.1 Presence of aortocoronary bypass graft; Z95.0 Presence of cardiac pacemaker
CPT/HCPCS: 36415; 71045; 71250; 76705; 80048; 80053; 80061; 80202; 81001; 82565; 82962; 83605; 83735; 84443; 84484; 85025; 85610; 85652; 85730; 86141; 87040; 87077; 87186; 87426; 87804; 93005; 93306; 97110; 97116; 97163; 97530; 99152; C9113; G0378; J2250

== ENCOUNTER → 2023-12-01 | Outpatient (CLI) | payer OTHER ==
[~2023-12-01] MED LIST changes: +APIX5TAB PO; -ASCO500T11 PO; +AUG875T PO; -CHOL50007 PO; -CLOP75TA28 PO; +CLOTCRE3 EX; +COLC1CAP3 PO; -ESOM40CA39 PO; +HYDR2.5C TOP; +HYDRX10T PO; +LISI10TA34 PO; -MAGN400C2 PO; +MET25T PO; -MULT-1018 PO; +TAMS-35 PO; +TAMS0.4C36 PO; +TRAZ-227 PO; -ZINC50TA7 PO
== END | disposition home or self-care (01) ==
LOC: Rad HDHVI 14:55
PROVIDERS: ATTEND Internal Medicine Cardiovascular Disease
DX: I50.23 Acute on chronic systolic (congestive) heart failure (principal)
CPT/HCPCS: 93306

== ENCOUNTER → 2023-12-04 | Outpatient (CLI) | payer OTHER ==
[~2023-12-04] MED LIST changes: -TAMS0.4C36 PO; +TAMS0.4C39 PO
[2023-12-04 15:43] LABS: Basophils # (auto) 0 10 ^3/uL (0-0.2); Basophils % (auto) 0.8 % (0.0-2.0); Eosinophils # (auto) 0.2 10 ^3/uL (0-0.8); Eosinophils % (auto) 4.7 % (0.0-7.0); Hematocrit 44.1 % (41.0-53.0); Hemoglobin 14.9 g/dL (13.5-17.5); Lymphocytes # (auto) 1.8 10 ^3/uL (0.4-5.4); Lymphocytes % (auto) 35.9 % (10.0-50.0); Mean Corpuscular Hgb Conc. 33.8 g/dL (32.0-36.0); Mean Corpuscular Volume 97.7 fL (80.0-100.0); Monocytes # (auto) 0.5 10 ^3/uL (0-1.3); Monocytes % (auto) 10.3 % (0.0-12.0); Neutrophils # (auto) 2.4 10 ^3/uL (1.6-8.6); Neutrophils % (auto) 48.3 % (37.0-80.0); Red Blood Cells 4.52 10^6/uL (4.5-5.90); Red Cell Distribution Width 16.3 % (11.8-14.3)
[2023-12-04 16:14] LABS: Alanine Aminotransferase 28 U/L (7-40); Albumin 2.8 g/dL (3.2-4.8); Alkaline Phosphatase 142 U/L (46-116); Anion Gap 5 (5-15); Aspartate Aminotransferase 43 U/L (13-40); BUN/Creatinine Ratio 9.5 (10.0-20.0); Bilirubin, Total 1.9 mg/dL (0.2-1.0); Blood Urea Nitrogen 7 mg/dL (9-23); Carbon Dioxide 26 mmol/L (20-30); Chloride 109 mmol/L (98-107); Cholesterol 118 mg/dL (< 200); Glucose 88 mg/dL (74-106); HDL Cholesterol 42 mg/dL (40-59); LDL Cholesterol 68 mg/dL (< 100); Potassium 4.1 mmol/L (3.5-5.1); Sodium 140 mmol/L (136-145); Total Protein 6.5 g/dL (5.7-8.2); Triglycerides 54 mg/dL (< 150)
== END | disposition home or self-care (01) ==
LOC: LAB 15:14
PROVIDERS: ATTEND Nurse Practitioner
DX: I10 Essential (primary) hypertension (principal); E78.5 Hyperlipidemia, unspecified
CPT/HCPCS: 36415; 80053; 80061; 83036; 84443; 85025

== ENCOUNTER 2024-01-24 09:07 | Inpatient (IN) | payer OTHER ==
[~2024-01-24] VITALS: Ht 180.3 cm; Wt 77.0 kg
[~2024-01-24 09:07] MED LIST changes: +MEGE40TA4 PO; +TEMA15CA2 PO
[2024-01-24 09:40] VITALS: PULSE 113; RESP 18; O2SAT 94
[2024-01-24] MEDS: ASPirin 81 mg TAB PO ONE (10:08)
[2024-01-24] MEDS: dilTIAZem 25 MG/5 ML VIAL IV ONE (10:16)
[2024-01-24 10:29] LABS: Eosinophils # (auto) 0.3 10 ^3/uL (0-0.8); Hematocrit 38.9 % (41.0-53.0); Lymphocytes # (auto) 2.1 10 ^3/uL (0.4-5.4); Monocytes # (auto) 0.7 10 ^3/uL (0-1.3); Nucleated Red Blood Cells % 0.3 %; Platelet Count (auto) 92 10^3/uL (140-450); Red Cell Distribution Width 15.6 % (11.8-14.3)
[2024-01-24 10:34] LABS: Basophils # (auto) 0.1 10 ^3/uL (0-0.2); Basophils % (auto) 0.9 % (0.0-2.0); Eosinophils % (auto) 5.3 % (0.0-7.0); Hemoglobin 13.5 g/dL (13.5-17.5); Lymphocytes % (auto) 32.7 % (10.0-50.0); Mean Corpuscular Hemoglobin 34.9 pg (28.0-32.0); Mean Corpuscular Hgb Conc. 34.8 g/dL (32.0-36.0); Mean Corpuscular Volume 100.3 fL (80.0-100.0); Monocytes % (auto) 11.6 % (0.0-12.0); Neutrophils # (auto) 3.1 10 ^3/uL (1.6-8.6); Neutrophils % (auto) 49.5 % (37.0-80.0); Red Blood Cells 3.88 10^6/uL (4.5-5.90); White Blood Cell 6.3 10^3/uL (4.4-10.8)
[2024-01-24 10:46] LABS: Albumin 2.8 g/dL (3.2-4.8); Alkaline Phosphatase 91 U/L (46-116); Anion Gap 9 (5-15); Aspartate Aminotransferase 62 U/L (13-40); Bilirubin, Total 1.6 mg/dL (0.2-1.0); Carbon Dioxide 20 mmol/L (20-31); Chloride 114 mmol/L (98-107); Glucose 71 mg/dL (74-106); Sodium 143 mmol/L (136-145)
[2024-01-24 11:49] LABS: Alanine Aminotransferase 28 U/L (7-40); BUN/Creatinine Ratio 18.5 (10.0-20.0); Blood Urea Nitrogen 12 mg/dL (9-23); Potassium 3.8 mmol/L (3.5-5.1)
[2024-01-24 13:53] LABS: Urine Bacteria None Seen /hpf (None Seen)
[2024-01-24] MEDS: ENOXAPARIN SOD 80 MG/0.8ML SYRINGE SC ONE (14:07)
[2024-01-24 14:26] LABS: Urine Blood Negative /uL (Negative); Urine Clarity Clear (Clear); Urine Color Yellow (Yellow); Urine Mucus FEW (None Seen); Urine Protein, UAD TRACE (Negative); Urine Specific Gravity 1.026 (1.001-1.035); Urine Urobilinogen 2 mg/dL (Negative); Urine WBC 2 /hpf (0 - 3)
[2024-01-24] MEDS ORDERED: NITROGLYCERIN 0.4 MG SL TAB SL PRN (15:15)
[2024-01-24] MEDS ORDERED: HYDROcodone-ACET 5/325MG TAB PO PRN (15:15)
[2024-01-24 17:33] VITALS: PULSE 74; RESP 17; O2SAT 94
[2024-01-24 17:35] VITALS: BP_SYST 118; BP_SYST 96; BP_DIAS 63; BP_DIAS 69; PULSE 107; PULSE 74; RESP 17; RESP 18; TEMP 97.8; TEMP 98.3; O2SAT 94; O2SAT 95
[2024-01-24] MEDS: TAMSULOSIN HYDROCHLORIDE 0.4 MG CAP PO SCH (18:36)
[2024-01-24] MEDS: METOPROLOL TARTRATE 25 MG TAB PO SCH (18:37)
[2024-01-24 20:00] VITALS: PULSE 113; PULSE 68; RESP 18; O2SAT 96
[2024-01-24 21:00] VITALS: BP 99/50; PULSE 68; RESP 18; TEMP 98.2; O2SAT 96
[2024-01-24] MEDS ORDERED: APIXABAN 5 MG TAB PO SCH (22:00)
[2024-01-24] MEDS: ATORVASTATIN 20 MG TAB PO SCH (22:39)
[2024-01-25] VITALS (8 sets, daily range): BP systolic 90–120; BP diastolic 55–69; PULSE 51–112; RESP 17–21; TEMP 98–98.7; O2SAT 91–97
[2024-01-25 05:40] LABS: Basophils # (auto) 0 10 ^3/uL (0-0.2); Hemoglobin 13.2 g/dL (13.5-17.5); Lymphocytes # (auto) 1.7 10 ^3/uL (0.4-5.4); Monocytes # (auto) 0.6 10 ^3/uL (0-1.3); Neutrophils # (auto) 2.3 10 ^3/uL (1.6-8.6)
[2024-01-25 05:42] LABS: Basophils % (auto) 0.7 % (0.0-2.0); Eosinophils # (auto) 0.4 10 ^3/uL (0-0.8); Eosinophils % (auto) 7.2 % (0.0-7.0); Hematocrit 37.6 % (41.0-53.0); Lymphocytes % (auto) 34.5 % (10.0-50.0); Mean Corpuscular Hemoglobin 35.1 pg (28.0-32.0); Mean Corpuscular Hgb Conc. 35.2 g/dL (32.0-36.0); Mean Corpuscular Volume 99.8 fL (80.0-100.0); Monocytes % (auto) 12.4 % (0.0-12.0); Neutrophils % (auto) 45.2 % (37.0-80.0); Nucleated Red Blood Cells % 0.4 %; Platelet Count (auto) 73 10^3/uL (140-450); Red Blood Cells 3.76 10^6/uL (4.5-5.90); Red Cell Distribution Width 15.1 % (11.8-14.3)
[2024-01-25 05:55] LABS: Anion Gap 7 (5-15); Carbon Dioxide 23 mmol/L (20-31); Chloride 110 mmol/L (98-107); Potassium 4.2 mmol/L (3.5-5.1); Sodium 140 mmol/L (136-145)
[2024-01-25 05:56] LABS: Calcium 8.7 mg/dL (8.7-10.4)
[2024-01-25] MEDS: LEVOTHYROXINE SODIUM 50 MCG TAB PO SCH (05:58)
[2024-01-25 06:01] LABS: BUN/Creatinine Ratio 16.9 (10.0-20.0); Blood Urea Nitrogen 12 mg/dL (9-23); Glucose 83 mg/dL (74-106)
[2024-01-25] MEDS: APIXABAN 5 MG TAB PO SCH (10:00)
[2024-01-25] MEDS: LISINOPRIL 5 MG TAB PO SCH (10:28)
[2024-01-25] MEDS: ASPirin 81 mg TAB PO ONE (13:07)
[2024-01-25] MEDS: ATORVASTATIN 20 MG TAB PO SCH (22:52)
[2024-01-26] VITALS (7 sets, daily range): BP systolic 108–125; BP diastolic 55–73; PULSE 64–109; RESP 17–20; TEMP 98.1–98.6; O2SAT 92–97
[2024-01-26] MEDS: MORPHINE SULFATE INJ 2 MG/ml SYRG IV PRN (04:36)
[2024-01-26 08:38] LABS: Basophils # (auto) 0 10 ^3/uL (0-0.2); Hemoglobin 13.6 g/dL (13.5-17.5); Lymphocytes # (auto) 1.6 10 ^3/uL (0.4-5.4); Monocytes # (auto) 0.6 10 ^3/uL (0-1.3); Platelet Count (auto) 82 10^3/uL (140-450)
[2024-01-26 08:42] LABS: Basophils % (auto) 0.8 % (0.0-2.0); Eosinophils # (auto) 0.3 10 ^3/uL (0-0.8); Eosinophils % (auto) 6.9 % (0.0-7.0); Mean Corpuscular Hemoglobin 34.6 pg (28.0-32.0); Mean Corpuscular Hgb Conc. 33.9 g/dL (32.0-36.0); Mean Corpuscular Volume 102.1 fL (80.0-100.0); Monocytes % (auto) 11.4 % (0.0-12.0); Neutrophils # (auto) 2.5 10 ^3/uL (1.6-8.6); Neutrophils % (auto) 49.9 % (37.0-80.0); Nucleated Red Blood Cells % 0.2 %; Red Blood Cells 3.92 10^6/uL (4.5-5.90); Red Cell Distribution Width 15.5 % (11.8-14.3); White Blood Cell 5.1 10^3/uL (4.4-10.8)
[2024-01-26 09:04] LABS: Alanine Aminotransferase 21 U/L (7-40); Albumin 2.7 g/dL (3.2-4.8); Alkaline Phosphatase 77 U/L (46-116); Anion Gap 5 (5-15); Aspartate Aminotransferase 45 U/L (13-40); BUN/Creatinine Ratio 20.8 (10.0-20.0); Bilirubin, Total 2.1 mg/dL (0.2-1.0); Blood Urea Nitrogen 15 mg/dL (9-23); Calcium 9.1 mg/dL (8.7-10.4); Carbon Dioxide 23 mmol/L (20-31); Chloride 110 mmol/L (98-107); Glucose 81 mg/dL (74-106); Potassium 4.7 mmol/L (3.5-5.1); Sodium 138 mmol/L (136-145); Total Protein 5.7 g/dL (5.7-8.2)
[2024-01-26 09:10] LABS: Hepatitis B Surface Antigen Negative (Negative)
[2024-01-26 09:31] LABS: Hepatitis A Ab IgM Negative; Hepatitis B Core IgM Negative
[2024-01-26 09:32] LABS: Hepatitis C Antibody Negative (Negative)
[2024-01-26] MEDS: ASPirin 81 mg TAB PO SCH (09:51)
[2024-01-26] MEDS ORDERED: MET25T PO (17:32)
== END 2024-01-26 18:41 | disposition home health service (06) | DRG 282 ==
LOC: ER 09:07 → TELE 15:11 → TELE-CENTR 17:10
PROVIDERS: ADMIT Internal Medicine; ATTEND Internal Medicine
DX: I48.20 Chronic atrial fibrillation, unspecified (principal); I21.A1 Myocardial infarction type 2; I48.92 Unspecified atrial flutter; J44.9 Chronic obstructive pulmonary disease, unspecified; E78.5 Hyperlipidemia, unspecified; I10 Essential (primary) hypertension; E03.9 Hypothyroidism, unspecified; I25.10 Atherosclerotic heart disease of native coronary artery without angina pectoris; Z95.1 Presence of aortocoronary bypass graft; Z80.9 Family history of malignant neoplasm, unspecified; Z86.73 Personal history of transient ischemic attack (TIA), and cerebral infarction without residual deficits; Z95.0 Presence of cardiac pacemaker
CPT/HCPCS: 36415; 71045; 80048; 80053; 80074; 81001; 84484; 85025; 93005; 96374; G0378

== ENCOUNTER → 2024-02-11 | Outpatient (CLI) | payer OTHER ==
[~2024-02-11] MED LIST changes: -AUG875T PO; -CLOTCRE3 EX; -TAMS-35 PO
[2024-02-11 15:15] VITALS: BP 108/50; PULSE 52; RESP 16; O2SAT 93
[2024-02-11 16:15] VITALS: BP 127/80; PULSE 70; RESP 16; O2SAT 93
== END | disposition home or self-care (01) ==
LOC: CHF HDHVI 15:25
PROVIDERS: ATTEND Internal Medicine Cardiovascular Disease
DX: S50.311A Abrasion of right elbow, initial encounter (principal); I25.10 Atherosclerotic heart disease of native coronary artery without angina pectoris; I10 Essential (primary) hypertension; I48.20 Chronic atrial fibrillation, unspecified; J44.9 Chronic obstructive pulmonary disease, unspecified; E78.5 Hyperlipidemia, unspecified; E03.9 Hypothyroidism, unspecified; Z86.73 Personal history of transient ischemic attack (TIA), and cerebral infarction without residual deficits; X58.XXXA Exposure to other specified factors, initial encounter; Y93.89 Activity, other specified
CPT/HCPCS: G0463

== ENCOUNTER → 2024-06-03 | Outpatient (CLI) | payer OTHER ==
[2024-06-03 14:43] LABS: Alanine Aminotransferase 18 U/L (7-40); Albumin 3.4 g/dL (3.2-4.8); Anion Gap 8 (5-15); Aspartate Aminotransferase 32 U/L (13-40); BUN/Creatinine Ratio 12.9 (10.0-20.0); Blood Urea Nitrogen 12 mg/dL (9-23); Calcium 9.5 mg/dL (8.7-10.4); Carbon Dioxide 26 mmol/L (20-31); Chloride 106 mmol/L (98-107); Cholesterol 109 mg/dL (< 200); Glucose 89 mg/dL (74-106); HDL Cholesterol 49 mg/dL (40-59); LDL Cholesterol 55 mg/dL (< 100); Potassium 4.5 mmol/L (3.5-5.1); Sodium 140 mmol/L (136-145); Total Protein 6.9 g/dL (5.7-8.2); Triglycerides 42 mg/dL (< 150)
[2024-06-03 14:48] LABS: Alkaline Phosphatase 117 U/L (46-116); Bilirubin, Total 1.5 mg/dL (0.2-1.0)
== END | disposition home or self-care (01) ==
LOC: LAB 13:39
PROVIDERS: ATTEND Nurse Practitioner
DX: I50.43 Acute on chronic combined systolic (congestive) and diastolic (congestive) heart failure (principal)
CPT/HCPCS: 36415; 80053; 80061

== ENCOUNTER 2024-07-20 00:17 | Inpatient (IN) | payer OTHER ==
[~2024-07-20] VITALS: Ht 180.3 cm; Wt 78.0 kg
[2024-07-20] VITALS (21 sets, daily range): BP systolic 81–115; BP diastolic 41–64; PULSE 82–128; RESP 12–20; TEMP 99.6; O2SAT 92–99
[~2024-07-20 00:17] MED LIST changes: +DIGO0.25 PO; +NYST-23 TOP; +SERT-289 PO; +TRIA37.587 PO
[2024-07-20 01:13] LABS: Basophils # (auto) 0 10 ^3/uL (0-0.2); Basophils % (auto) 0.8 % (0.0-2.0); Eosinophils # (auto) 0.2 10 ^3/uL (0-0.8); Eosinophils % (auto) 2.7 % (0.0-7.0); Hematocrit 26.1 % (41.0-53.0); Hemoglobin 8.8 g/dL (13.5-17.5); Lymphocytes # (auto) 1.8 10 ^3/uL (0.4-5.4); Lymphocytes % (auto) 29.8 % (10.0-50.0); Mean Corpuscular Hemoglobin 30.5 pg (28.0-32.0); Mean Corpuscular Hgb Conc. 33.5 g/dL (32.0-36.0); Mean Corpuscular Volume 90.8 fL (80.0-100.0); Monocytes # (auto) 0.8 10 ^3/uL (0-1.3); Monocytes % (auto) 12.9 % (0.0-12.0); Neutrophils # (auto) 3.2 10 ^3/uL (1.6-8.6); Neutrophils % (auto) 53.8 % (37.0-80.0); Nucleated Red Blood Cells % 0.1 %; Platelet Count (auto) 87 10^3/uL (140-450); Red Blood Cells 2.88 10^6/uL (4.5-5.90); Red Cell Distribution Width 17.2 % (11.8-14.3)
[2024-07-20 01:21] LABS: Potassium 3.7 mmol/L (3.5-5.1); Sodium 142 mmol/L (136-145)
[2024-07-20 01:22] LABS: Anion Gap 4 (5-15); Carbon Dioxide 27 mmol/L (20-31)
[2024-07-20 01:23] LABS: Calcium 7.8 mg/dL (8.7-10.4); Chloride 111 mmol/L (98-107)
[2024-07-20 01:27] LABS: BUN/Creatinine Ratio 25.7 (10.0-20.0); Blood Urea Nitrogen 18 mg/dL (9-23); Glucose 85 mg/dL (74-106)
--- NOTE | 2024-07-20 01:40 | DVH ---
CHEST RADIOGRAPH Indication: ami Technique: Single frontal view of the chest was obtained Comparison: XY CHEST PORTABLE on DOS: 01/24/24, XY CHEST PORTABLE on DOS: 10/13/23, XY CHEST PORTABLE o n DOS: 09/26/22 Findings/ IMPRESSION: Left-sided cardiac device with intact leads. Extensive postsurgical changes of the mediastinum. Patc hy opacification in the right mid to lower lung zone concerning for developing airspace disease.
--- NOTE | 2024-07-20 01:42 | ED.PDOC ---
History of Present Illness HPI Comments 73 y/o M is BIBA from [facility] ([facility]) for higher-level of care for NSTEMI, today. Per EMS report, patient was seen and evaluated at [facility] for initial c/o generalized body pain and weakness and diarrhea for 3x days and palpations for 1x day. He was then reported to have been found with elevated troponin values of 0.22 and 0.42 and requested to be transferred to [facility] for further care by marketing effectiveness manager Dr. Lowe. Patient has a reported history that includes: AFIB, CAD, CHF, CVA, CABG, HTN, pacemaker, hypothyroidism, and digoxin and eliquis use. Patient has no reported chest pain, shortness of breath, or other associated symptoms or modifiers at this time. Chief Complaint: General Weakness Time Seen by MD: 00:30 Primary Care Provider: BARBARA Reviewed Notes: Nurses Notes, Sign Maintenance Notes, Medications, Allergies Allergies: Coded Allergies: NO KNOWN ALLERGIES (Unverified , 09/25/22) Home Meds Active Scripts Metoprolol Tartrate (Lopressor) 25 Mg Tb, 25 MG PO BID for 30 Days, #60 TAB Prov:LENNOX TORRES RESIDENT 01/26/24 Colchicine (Mitigare) 0.6 Mg Cap, 0.6 MG PO BID for 90 Days, #180 CAP Prov:MAHESH WHIPPLE RESIDENT 10/19/23 Meclizine HCl (Meclizine 25) 25 Mg Tab, 25 MG PO Q12HP PRN for 30 Days, #60 TAB Prov:TRIPP HI MD 08/20/22 Reported Medications Megestrol Acetate (Megestrol Acetate) 40 Mg Tab, 1 TAB PO BID for 30 Days, #60 01/26/24 Temazepam (Restoril) 15 Mg Cp, 1 CAP PO HS PRN for 30 Days, #30 01/26/24 Hydroxyzine Hcl (Hydroxyzine Hcl) 10 Mg Tab, 1 TAB PO HS PRN 10/14/23 Trazodone Hcl (Trazodone Hcl) 50 Mg Tab, 1 TAB PO HS PRN for 30 Days, #30 10/14/23 Hydrocortisone Base (Hydrocortisone) 2.5 % Cre, 1 APPLIC TOP BID for 28 Days, #28 Apply a thin layer of cream topically to affected area twice daily. 10/14/23 Tamsulosin Hcl (Tamsulosin Hcl) 0.4 Mg Cap, 0.4 MG PO QPM for 30 Days, MG 10/13/23 Apixaban Base (ELIQUIS) 5 Mg Tab, 5 MG PO BID, TAB 10/13/23 Lisinopril (Lisinopril) 10 Mg Tab, 10 MG PO DAILY for 30 Days, MG 10/13/23 Atorvastatin Calcium (Lipitor) 20 Mg Tab, 1 TAB PO DAILY for HIGH CHOLESTEROL, #90 TAB 1 Refill 09/25/22 Levothyroxine Sodium (Synthroid) 50 Mcg Tab, 50 MCG PO DAILY for low thyroid, TAB 09/25/22 Information Source: Patient, Emergency Med Personnel Mode of Arrival: EMS Past Medical History PAST MEDICAL HISTORY: AFIB, COPD, CVA, High Lipids, HTN, Thyroid (hypothryoidism ) Surgical History: CABG, Pacemaker Family History Family History: Family hx of Cancer Social History Smoker: Non-Smoker Alcohol: Denies ETOH Use Drugs: Denies Drug Use Lives In: Home All Other Systems: Reviewed and Negative (Comprehensive systems review obtained and negative except for what is stated in the HPI.) Physical Exam General Appearance: No Apparent Distress, Normal, Other (feeble, soft spoken ) HEENT: Normal ENT Inspection, Pharynx Normal, TMs Normal Neck: Full Range of Motion, Non-Tender, Normal, Normal Inspection Respiratory: Chest Non-Tender, Lungs Clear, No Accessory Muscle Use, No Respiratory Distress, Normal Breath Sounds Cardiovascular: No Edema, No JVD, No Murmur, No Gallop, Normal Peripheral Pulses, Regular Rate/Rhythm Breast Exam: Deferred Gastrointestinal: No Organomegaly, Non Tender, No Pulsatile Mass, Normal Bowel Sounds, Soft Genitalia: Deferred Pelvic: Deferred Rectal: Deferred Extremities: No calf tenderness, Normal capillary refill, Normal inspection, Normal range of motion, Non-tender, No pedal edema Musculoskeletal : Apperance: Normal 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 Was a procedure done?: No EKG EKG #1: Pulse Rate (adult): 96 [place]: Normal Cardiac Rhythm: Paced Block: None Hypertrophy: None ST: Normal EKG #2: Pulse Rate (adult): 129 [place]: Normal Cardiac Rhythm: Afib Block: None Hypertrophy: None ST: Normal Differential Dx Considerations may include: [place], PE, ACS, elevated troponin, viral syndrome, among others X-Ray, Labs, Meds, VS Vital Signs Date Time Temp Pulse Resp B/P (MAP) Pulse Ox O2 Delivery O2 Flow Rate FiO2 07/20/24 01:42 129 07/20/24 01:26 109 19 97 Nasal Cannula* 2 28 07/20/24 01:12 129 07/20/24 01:00 97.9 102 19 96/57 (70) 97 97.9 07/20/24 00:26 97.9 124 18 91/51 (64) 97 97.9 07/20/24 00:19 96 Lab Test 07/20/24 00:50 Range/Units White Blood Count 6.0 4.4-10.8 10^3/uL Red Blood Count 2.88 L 4.5-5.90 10^6/uL Hemoglobin 8.8 L 13.5-17.5 g/dL Hematocrit 26.1 L 41.0-53.0 % Mean Corpuscular Volume 90.8 80.0-100.0 fL Mean Corpuscular Hemoglobin 30.5 28.0-32.0 pg Mean Corpuscular Hemoglobin Concent 33.5 32.0-36.0 g/dL Red Cell Distribution Width 17.2 H 11.8-14.3 % Platelet Count 87 L 140-450 10^3/uL Mean Platelet Volume 8.5 6.9-10.8 fL Neutrophils (%) (Auto) 53.8 37.0-80.0 % Lymphocytes (%) (Auto) 29.8 10.0-50.0 % Monocytes (%) (Auto) 12.9 H 0.0-12.0 % Eosinophils (%) (Auto) 2.7 0.0-7.0 % Basophils (%) (Auto) 0.8 0.0-2.0 % Neutrophils # (Auto) 3.2 1.6-8.6 10 ^3/uL Lymphocytes # (Auto) 1.8 0.4-5.4 10 ^3/uL Monocytes # (Auto) 0.8 0-1.3 10 ^3/uL Eosinophils # (Auto) 0.2 0-0.8 10 ^3/uL Basophils # (Auto) 0 0-0.2 10 ^3/uL Nucleated Red Blood Cells 0.1 % Sodium Level 142 136-145 mmol/L Potassium Level 3.7 3.5-5.1 mmol/L Chloride Level 111 H 98-107 mmol/L Carbon Dioxide Level 27 20-31 mmol/L Anion Gap 4 L 5-15 Blood Urea Nitrogen 18 9-23 mg/dL Creatinine 0.70 0.700-1.30 mg/dL Glomerular Filtration Rate Calc 98 >90 mL/min BUN/Creatinine Ratio 25.7 H 10.0-20.0 Serum Glucose 85 74-106 mg/dL Calcium Level 7.8 L 8.7-10.4 mg/dL Troponin I High Sensitivity 1927 *H </=54 ng/L Time of 1ST Reevaluation: 01:00 Reevaluation 1ST: Unchanged Time of 2ND Reevaluation: 01:58 Reevaluation 2ND: Improved Patient Education/Counseling: Diagnosis, Treatment, Prognosis, Need For Follow Up Family Education/Counseling: No Family Present Additional Information Previous medical encounters reviewed: January 24, 2024 encounter for AFIB RVR The following tests were ordered, and results were reviewed by me: CXR, CBC, BMP, troponin, EKG Additional Information was gathered from interviewing the following independent historians: EMS, transferring provider I reviewed and agreed with the following test results read by other providers: CXR I discussed treatment and results with medical personnel and: Patient i updated Dr Lowe, who will consult. i updated him about the gib anemia. although at [place], he was reportedly guaiac negative. he is grossly positive here and the stool is loose and black. Departure 1 Departure Time of Disposition: 02:01 Impression: Primary Impression: NSTEMI (non-ST elevated myocardial infarction) Additional Impressions: GIB (gastrointestinal bleeding) Qualified Codes: K92.2 - Gastrointestinal hemorrhage, unspecified Anemia Disposition: ADMITTED INPATIENT Admit to: ICU Condition: Critical Critical Care Note Critical Care Time?: Yes Critical care comment: Due to concerns for patients condition deteriorating, the care required my highest level of attention and readiness to intervene. I assessed the patient, reviewed the medical records, ordered the appropriate tests and treatments, then reassessed for results and responsiveness. I communicated with medical personnel and consultants and formulated a plan of care. Total critical care time excludes any procedures Stability Stability form required: No Heart Score Heart Score: Heart Score Response (Comments) Value History Moderate Suspicious 1 EKG Normal 0 Age >65 2 Risk Factors >3 or Hx ASHD 2 Troponin >3 x's Normal limit 2 Total 7 I personally scribed for TIANNA ARTEAGA MD ([email or web address]) on 07/20/24 at 01:42. Electronically submitted by Osei Lind ([email or web address]). I personally scribed for TIANNA ARTEAGA MD ([email or web address]) on 07/20/24 at 01:43. Electronically submitted by Osei Lind ([email or web address]). TIANNA ARTEAGA MD Jul 20, 2024 01:42
[2024-07-20] MEDS ORDERED: PANTOPRAZOLE 80 MG in SODIUM CHL 0.9% 100 ML IV ONE (02:00)
[2024-07-20] MEDS: PANTOPRAZOLE 40mg/50ML NS AE 50 ML IV ONE (03:06)
[2024-07-20] MEDS: PANTOPRAZOLE 40 MG/10 ML VIAL INJ IV ONE (03:06)
--- NOTE | 2024-07-20 06:59 | ECG ---
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
--- NOTE | 2024-07-20 06:59 | ECG ---
[facility] Test Date: 2024-07-20 Test Time: 00:19:38 Pat Name: SHANNAN WOODRUFF Department: ED Room: [address] [place] [id number] Gender: M Well Digger: WILLA : 1950 Requested By: TIANNA ARTEAGA Order Number: [id number] Reading MD: Marlon Mcclain Measurements Intervals [place] Rate: 96 P: 0 PA: 164 QRS: 26 QRSD: 114 T: 87 QT: 339 QTc: 429 Interpretive Statements Ventricular-paced complexes No further rhythm analysis attempted due to paced rhythm Borderline intraventricular conduction delay Low voltage, extremity leads Nonspecific repol abnormality, diffuse leads Electronically Signed On 07-21-2024 22:11:52 PDT by Marlon Mcclain Please click the below link to view image of tracing.
--- NOTE | 2024-07-20 06:59 | ECG ---
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
[2024-07-20 09:48] LABS: Basophils # (auto) 0.1 10 ^3/uL (0-0.2); Basophils % (auto) 0.9 % (0.0-2.0); Eosinophils # (auto) 0.3 10 ^3/uL (0-0.8); Eosinophils % (auto) 4.6 % (0.0-7.0); Hematocrit 29.2 % (41.0-53.0); Hemoglobin 9.2 g/dL (13.5-17.5); Lymphocytes # (auto) 1.6 10 ^3/uL (0.4-5.4); Lymphocytes % (auto) 26.4 % (10.0-50.0); Mean Corpuscular Hemoglobin 30.2 pg (28.0-32.0); Mean Corpuscular Hgb Conc. 31.6 g/dL (32.0-36.0); Mean Corpuscular Volume 95.7 fL (80.0-100.0); Monocytes # (auto) 0.8 10 ^3/uL (0-1.3); Monocytes % (auto) 13.5 % (0.0-12.0); Neutrophils # (auto) 3.3 10 ^3/uL (1.6-8.6); Neutrophils % (auto) 54.6 % (37.0-80.0); Nucleated Red Blood Cells % 0.1 %; Platelet Count (auto) 80 10^3/uL (140-450); Red Blood Cells 3.05 10^6/uL (4.5-5.90); Red Cell Distribution Width 18.1 % (11.8-14.3); White Blood Cell 5.9 10^3/uL (4.4-10.8)
[2024-07-20 10:14] LABS: Alanine Aminotransferase 29 U/L (7-40); Alkaline Phosphatase 75 U/L (46-116); BUN/Creatinine Ratio 20.3 (10.0-20.0); Blood Urea Nitrogen 13 mg/dL (9-23); Carbon Dioxide 26 mmol/L (20-31); Glucose 84 mg/dL (74-106); Sodium 140 mmol/L (136-145)
[2024-07-20 10:16] LABS: Albumin 2.5 g/dL (3.2-4.8); Aspartate Aminotransferase 52 U/L (13-40); Bilirubin, Total 1.7 mg/dL (0.2-1.0); Calcium 8.1 mg/dL (8.7-10.4); Potassium 3.5 mmol/L (3.5-5.1); Total Protein 5.3 g/dL (5.7-8.2)
[2024-07-20 10:29] LABS: Anion Gap 3 (5-15); Chloride 111 mmol/L (98-107)
[2024-07-20] MEDS ORDERED: hydrOXYzine HCL 10 MG TAB PO PRN (11:45)
[2024-07-20] MEDS ORDERED: HYDROcodone-ACET 5/325MG TAB PO PRN (11:45)
[2024-07-20] MEDS ORDERED: NITROGLYCERIN 0.4 MG SL TAB SL PRN (11:45)
[2024-07-20] MEDS ORDERED: MORPHINE SULFATE INJ 2 MG/ml SYRG IV PRN (11:45)
[2024-07-20] MEDS ORDERED: ONDANSETRON HCL 4 MG/2 ML VIAL IV PRN (11:45)
[2024-07-20] MEDS ORDERED: ALBUTEROL SULF 2.5 MG/0.5ML(0.5%) NEB SOLN NEB PRN (12:00)
[2024-07-20] MEDS ORDERED: IPRATROPIUM BROM 0.5 MG/2.5ML INH SOL NEB PRN (12:00)
--- NOTE | 2024-07-20 12:12 | DVHHP2 ---
History of Present Illness Reason for Visit: NSTEMI History of Present Illness Shankar Jules is a 73-year-old male with past medical history of hypertension, CVA x 5, atrial fibrillation, CHF, hypothyroidism, pacemaker, and hyperlipidemia, who was transferred from [facility] for NSTEMI. Patient went to [facility] for generalized weakness, found to have elevated troponin and possible GI bleed, so he was transferred here for higher level of care for NSTEMI. Patient was found to be in atrial fibrillation with RVR, and hypotensive. Cardiology was consulted, IV fluids, and IV amiodarone, were given. Patient remained hypotensive, Levophed was started. Cardiovascular: AFIB, CHF, HTN, hyperipidemia, Other (pacemaker) [employer]: CVA (x 5) Endocrine: Hypothyroidism Past Surgical History: CABG, Other (Pacemaker, right leg surgery) Smoke: No ALCOHOL: none Drugs: None Lives: with Family Domestic Violence: Neg Review of Systems Constitutional: Yes: Weakness, Malaise; No: Fever, Chills, Sweats, Other Eyes: No: Pain, Vision change, Conjunctivae inflammation, Eyelid inflammation, Other, Redness ENT: No: Ear pain, Ear discharge, Nose pain, Nose discharge, Nose congestion, Mouth pain, Mouth swelling, Throat pain, Throat swelling, Other Respiratory: No: Cough, Dry, Shortness of breath, SOB with excertion, Wheezing, Hemoptysis, Pleuritic Pain, Sputum, Wheezing, Other Cardiovascular: No: Chest Pain, Palpitations, Orthopnea, Paroxysmal Noc. Dyspnea, Edema, Lt Headedness, Other Gastrointestinal: No: Nausea, Vomiting, Abdominal Pain, Diarrhea, Constipation, Melena, Hematochezia, Other Genitourinary: No Dysuria, No Frequency, No Incontinence, No Hematuria, No Retention, No Other Musculoskeletal: No: other, neck pain, shoulder pain, arm pain, back pain, hand pain, leg pain, foot pain Skin: No: Rash, Lesions, Jaundice, Bruising, Other Neurological: No: Weakness, Numbness, Incoordination, Change in speech, Confusion, Seizures, Other Allergies: Coded Allergies: NO KNOWN ALLERGIES (Unverified , 09/25/22) Medications Current Medications Medications Dose Ordered Sig/Kenji Route Start Time Stop Time Status Last Admin Dose Admin Acetaminophen/ Hydrocodone Bitart 1 tab Q4HP PRN PO 07/20/24 11:45 UNV Ondansetron HCl 4 mg Q4HP PRN IV 07/20/24 11:45 UNV Acetaminophen 650 mg Q6HP PRN PO 07/20/24 11:45 UNV Nitroglycerin 0.4 mg Q5MINP PRN SL 07/20/24 11:45 UNV Morphine Sulfate 2 mg Q30M PRN IV 07/20/24 11:45 UNV Apixaban 5 mg BID PO 07/20/24 22:00 UNV Atorvastatin Calcium 20 mg DAILY PO 07/21/24 10:00 UNV Levothyroxine Sodium 50 mcg DAILY PO 07/21/24 10:00 UNV Tamsulosin HCl 0.4 mg QPM PO 07/20/24 18:00 UNV Trazodone HCl 50 mg HS PO 07/20/24 22:00 UNV Patient Own Medication 10 mg DAILY PO 07/21/24 10:00 UNV Patient Own Medication 1 tab BID PO 07/20/24 22:00 UNV Hydroxyzine HCl 10 mg HSPRN PRN PO 07/20/24 11:45 UNV Exam Vital Signs Vital Signs Date Time Temp Pulse Resp B/P (MAP) Pulse Ox O2 Delivery O2 Flow Rate FiO2 07/20/24 10:00 100 17 91/54 (66) 95 07/20/24 07:55 Nasal Cannula* 2 28 07/20/24 07:55 98.2 98.2 General Appearance: Alert, Oriented X3, Cooperative, moderate distress HEENT: Atraumatic, PERRLA, Mucous membr. moist/pink Respiratory: Normal air movement, Other (diminished breath sounds) Cardiovascular: Normal S1, Normal S2, No murmurs, Other (atrail fibrillation) Abdominal: Normal bowel sounds, Soft, No tenderness, No hepatospenomegaly Extremities: No clubbing, No cyanosis, No edema, Normal pulses Skin: No rashes, No breakdown, No significant lesion Neuro: Normal gait, Normal speech, Strength at 5/5 X4 ext Psych/Mental Status: Mental status NL, Mood NL Labs/Xrays Labs Test 07/20/24 10:41 07/20/24 09:40 Range/Units Troponin I High Sensitivity 1537 *H </=54 ng/L White Blood Count 5.9 4.4-10.8 10^3/uL Red Blood Count 3.05 L 4.5-5.90 10^6/uL Hemoglobin 9.2 L 13.5-17.5 g/dL Hematocrit 29.2 #L 41.0-53.0 % Mean Corpuscular Volume 95.7 # 80.0-100.0 fL Mean Corpuscular Hemoglobin 30.2 28.0-32.0 pg Mean Corpuscular Hemoglobin Concent 31.6 L 32.0-36.0 g/dL Red Cell Distribution Width 18.1 H 11.8-14.3 % Platelet Count 80 L 140-450 10^3/uL Mean Platelet Volume 8.0 6.9-10.8 fL Neutrophils (%) (Auto) 54.6 37.0-80.0 % Lymphocytes (%) (Auto) 26.4 10.0-50.0 % Monocytes (%) (Auto) 13.5 H 0.0-12.0 % Eosinophils (%) (Auto) 4.6 0.0-7.0 % Basophils (%) (Auto) 0.9 0.0-2.0 % Neutrophils # (Auto) 3.3 1.6-8.6 10 ^3/uL Lymphocytes # (Auto) 1.6 0.4-5.4 10 ^3/uL Monocytes # (Auto) 0.8 0-1.3 10 ^3/uL Eosinophils # (Auto) 0.3 0-0.8 10 ^3/uL Basophils # (Auto) 0.1 0-0.2 10 ^3/uL Nucleated Red Blood Cells 0.1 % Sodium Level 140 136-145 mmol/L Potassium Level 3.5 3.5-5.1 mmol/L Chloride Level 111 H 98-107 mmol/L Carbon Dioxide Level 26 20-31 mmol/L Anion Gap 3 L 5-15 Blood Urea Nitrogen 13 9-23 mg/dL Creatinine 0.64 L 0.700-1.30 mg/dL Glomerular Filtration Rate Calc 101 >90 mL/min BUN/Creatinine Ratio 20.3 H 10.0-20.0 Serum Glucose 84 74-106 mg/dL Calcium Level 8.1 L 8.7-10.4 mg/dL Total Bilirubin 1.7 H 0.2-1.0 mg/dL Aspartate Amino Transferase (AST) 52 H 13-40 U/L Alanine Aminotransferase (ALT) 29 7-40 U/L Alkaline Phosphatase 75 46-116 U/L Total Protein 5.3 L 5.7-8.2 g/dL Albumin 2.5 L 3.2-4.8 g/dL CHEST RADIOGRAPH Findings/ IMPRESSION: Left-sided cardiac device with intact leads. Extensive postsurgical changes of the mediastinum. Patchy opacification in the right mid to lower lung zone concerning for developing airspace disease. Assessment/Plan Assessment/Plan Assessment: NSTEMI (non-ST elevated myocardial infarction), Possible GI bleed, Atrial fibrillation with RVR, Possible pneumonia, Hypothyroidism, CHF, Plan: Admit to Tele, Cardiology consult, GI consult, Type and screen patient, NPO, IV antibiotics, IV hydration, Manage/Monitor H&H closely, Supplemental oxygen as needed, Breathing treatments as needed, Home medications reconciled, Plan discussed with: Patient My Orders Orders - EDDIE PRESSLEY [employer] CEMENT[employer]SOLE MACHINE Procedure Category Date Status Time Stool Occult Blood LAB 07/20/24 Logged 09:30 * Cardiology Consult CONS 07/20/24 Transmitted 10:39 Admit ADMIT 07/20/24 Transmitted 11:33 Code Status CODE 07/20/24 Transmitted 11:33 Hydrocodone-Acet PHA 07/20/24 Logged 5/325mg Tab ([place] 11:45 Ondansetron Hcl PHA 07/20/24 Logged (Zofran) 11:45 Fall Risk Precautions [facility] 07/20/[address] 11:33 Complete Blood Count LAB 07/21/24 Verified 04:00 Comprehensive LAB 07/21/24 Verified Metabolic Panel 04:00 Condition: Serious CAREN 07/20/24 In Process 11:33 Acetaminophen Tablet PHA 07/20/24 Logged (Tylenol Tablet) 11:45 Clear Liq Diet DIET 07/20/24 Transmitted Lunch Nitroglycerin PHA 07/20/24 Logged Sublingual (Ntrostat 11:45 Morphine Sulfate PHA 07/20/24 Logged Injection 11:45 Stat Ekg For Chest CAREN 07/20/24 In Process Pain 11:33 Notify Of Changes CAREN 07/20/24 In Process From Base 11:33 Flight Agent For CAREN 07/20/24 In Process 24 Hours 11:33 Emergency Dysrhythmia CAREN 07/20/24 In Process Protocol 11:33 Rhythm Strips Once CAREN 07/20/24 In Process Every Shift 11:33 Oxygen By Nasal RT 07/20/24 Transmitted Cannula 11:33 PTPTT LAB 07/20/24 Logged 11:41 Apixaban (Eliquis) PHA 07/20/24 Logged 22:00 Atorvastatin (Lipitor) PHA 07/21/24 Logged 10:00 Levothyroxine Tablet PHA 07/21/24 Logged (Synthroid Tablet) 10:00 Tamsulosin PHA 07/20/24 Logged Hydrochloride (Flomax) 18:00 Trazodone Hcl PHA 07/20/24 Logged (Desyrel) 22:00 (Nf) Lisinopril PHA 07/21/24 Logged 10:00 (Nf) Megestrol Acetate PHA 07/20/24 Logged 22:00 Hydroxyzine Oral PHA 07/20/24 Transmitted (Vistaril Oral) 11:45 Date of Service: Jul 20, 2024 Billing Provider: EDDIE PRESSLEY Common Visit Codes: [id number] INP/OBS CARE (HIGH) EDDIE PRESSLEY Jul 20, 2024 12:11
[2024-07-20 12:33] LABS: INR 1.48 (0.9-1.15); Partial Thromboplastin Time 33.8 SEC (24.5-34.5); Prothrombin Time 15.1 sec (9.3-11.8)
[2024-07-20] MEDS: SODIUM CHLORIDE 0.9% 1,000 ML IV ONE (12:49)
[2024-07-20] MEDS: AMIODARONE BOLUS KIT 100 ML IV ONE (12:55)
[2024-07-20] MEDS: cefTRIAXone 1GM/50ML D5W 50 ML IV ONE (13:00)
[2024-07-20] MEDS: NOREPINEPHRINE 8 MG/250ML KIT 250 ML IV SCH (13:02)
[2024-07-20] MEDS: AMIODARONE 360mg/200mL PREMIX 200 ML IV ONE (13:21)
--- NOTE | 2024-07-20 15:36 | DVHPN2 ---
Progress Note - Dictate Date Seen: Jul 19, 2024 Medical Necessity Reason Pt with a Central, PICC or Fol: Yes The following are medically ne: Gonzáles Catheter Subjective PT WELL KNOWN TO ME SEEN IN [facility] NOW WITH CHEST PAIN ELEVATED TROPONIN NSTEMI PMH ORGANIC HD CAD S/P CABG MULTIPLE CVA/ INITIAL AFTER CABG A FIB HYPERLIPIDEMIA SSS S/P PPI vital signs Vital Sign Date Time Temp Pulse Resp B/P (MAP) Pulse Ox O2 Delivery O2 Flow Rate FiO2 07/20/24 15:00 97/58 07/20/24 15:00 101 17 100 07/20/24 07:55 Nasal Cannula* 2 28 07/20/24 07:55 98.2 98.2 medications Current Medications Medications Dose Ordered Sig/Kenji Route Start Time Stop Time Status Last Admin Dose Admin Acetaminophen/ Hydrocodone Bitart 1 tab Q4HP PRN PO 07/20/24 11:45 Ondansetron HCl 4 mg Q4HP PRN IV 07/20/24 11:45 Acetaminophen 650 mg Q6HP PRN PO 07/20/24 11:45 Nitroglycerin 0.4 mg Q5MINP PRN SL 07/20/24 11:45 Morphine Sulfate 2 mg Q30M PRN IV 07/20/24 11:45 Apixaban 5 mg BID PO 07/20/24 22:00 Atorvastatin Calcium 20 mg DAILY PO 07/21/24 10:00 Levothyroxine Sodium 50 mcg QAM PO 07/21/24 07:00 Tamsulosin HCl 0.4 mg QPM PO 07/20/24 18:00 Trazodone HCl 50 mg HS PO 07/20/24 22:00 Lisinopril 10 mg DAILY PO 07/21/24 10:00 Megestrol Acetate 40 mg BID PO 07/20/24 22:00 Hydroxyzine HCl 10 mg HSPRN PRN PO 07/20/24 11:45 Ceftriaxone Sodium 50 ml @ 100 mls/hr DAILY@09 IV 07/21/24 09:00 Azithromycin 250 ml @ 125 mls/hr DAILY IV 07/21/24 10:00 Ipratropium [place] 0.5 mg Q4HPRN PRN NEB 07/20/24 12:00 Albuterol 2.5 mg Q4HPRN PRN NEB 07/20/24 12:00 Norepinephrine Bitartrate 250 ml @ 3.75 mls/hr Q24H IV 07/20/24 12:30 07/20/24 13:02 3.75 MLS/HR laboratory and microbiology Laboratory Tests 07/20/24 09:40 Test 07/20/24 09:40 Range/Units Serum Glucose 84 74-106 mg/dL Problem List SEEN IN [facility] NOW WITH CHEST PAIN ELEVATED TROPONIN NSTEMI PMH ORGANIC HD CAD S/P CABG MULTIPLE CVA/ INITIAL AFTER CABG A FIB HYPERLIPIDEMIA SSS S/P PPI Assessment/Plan [facility] 07/21/24 Plan discussed with: Patient Critical Care Time(min): 35 BARBARA BAIN MD Jul 20, 2024 15:36
[2024-07-20] MEDS: AZITHROMYCIN 500MG/ 250ML 250 ML IV ONE (18:55)
[2024-07-20] MEDS: TAMSULOSIN HYDROCHLORIDE 0.4 MG CAP PO SCH (18:55)
[2024-07-20] MEDS: AMIODARONE 360mg/200mL PREMIX 200 ML IV SCH (19:01)
[2024-07-20] MEDS: MEGESTROL ACETATE 20 MG TAB PO SCH (22:00)
[2024-07-20] MEDS: APIXABAN 5 MG TAB PO SCH (22:09)
[2024-07-20] MEDS: traZODone HCL 50 MG TAB PO SCH (22:09)
[2024-07-21] VITALS (97 sets, daily range): BP systolic 80–127; BP diastolic 46–82; PULSE 88–138; RESP 11–78; TEMP 97.9–98.7; O2SAT 78–100
[2024-07-21 04:46] LABS: Alanine Aminotransferase 24 U/L (7-40); Alkaline Phosphatase 80 U/L (46-116); Anion Gap 7 (5-15); BUN/Creatinine Ratio 17.9 (10.0-20.0); Bilirubin, Total 1.2 mg/dL (0.2-1.0); Blood Urea Nitrogen 12 mg/dL (9-23); Carbon Dioxide 24 mmol/L (20-31); Glucose 90 mg/dL (74-106); Sodium 141 mmol/L (136-145); Total Protein 5.9 g/dL (5.7-8.2)
[2024-07-21 04:47] LABS: Albumin 2.7 g/dL (3.2-4.8); Aspartate Aminotransferase 51 U/L (13-40); Calcium 8.2 mg/dL (8.7-10.4); Chloride 110 mmol/L (98-107); Potassium 3.5 mmol/L (3.5-5.1)
[2024-07-21 05:00] LABS: Basophils # (auto) 0.1 10 ^3/uL (0-0.2); Basophils % (auto) 0.8 % (0.0-2.0); Eosinophils # (auto) 0.4 10 ^3/uL (0-0.8); Eosinophils % (auto) 5.4 % (0.0-7.0); Hematocrit 31.9 % (41.0-53.0); Hemoglobin 10.7 g/dL (13.5-17.5); Lymphocytes # (auto) 1.9 10 ^3/uL (0.4-5.4); Lymphocytes % (auto) 25.8 % (10.0-50.0); Mean Corpuscular Hemoglobin 30.4 pg (28.0-32.0); Mean Corpuscular Hgb Conc. 33.5 g/dL (32.0-36.0); Mean Corpuscular Volume 90.6 fL (80.0-100.0); Monocytes # (auto) 1.1 10 ^3/uL (0-1.3); Monocytes % (auto) 15.3 % (0.0-12.0); Neutrophils # (auto) 3.8 10 ^3/uL (1.6-8.6); Neutrophils % (auto) 52.7 % (37.0-80.0); Nucleated Red Blood Cells % 0.2 %; Platelet Count (auto) 74 10^3/uL (140-450); Red Blood Cells 3.53 10^6/uL (4.5-5.90); Red Cell Distribution Width 17.3 % (11.8-14.3); White Blood Cell 7.2 10^3/uL (4.4-10.8)
[2024-07-21 05:37] LABS: Giant Platelets Few; Platelet Estimate Decreased
[2024-07-21] MEDS: LEVOTHYROXINE SODIUM 50 MCG TAB PO SCH (06:31)
[2024-07-21] MEDS: LISINOPRIL 5 MG TAB PO SCH (07:21)
[2024-07-21] MEDS: cefTRIAXone 1GM/50ML D5W 50 ML IV SCH (08:02)
[2024-07-21] MEDS: ATORVASTATIN 20 MG TAB PO SCH (08:03)
--- NOTE | 2024-07-21 08:23 | DVHPN2 ---
Progress Note - Dictate Date Seen: Jul 21, 2024 Medical Necessity Reason Pt with a Central, PICC or Fol: Yes The following are medically ne: Gonzáles Catheter Subjective PT WELL KNOWN TO ME SEEN IN [place] NOW WITH CHEST PAIN ELEVATED TROPONIN NSTEMI PMH ORGANIC HD CAD S/P CABG MULTIPLE CVA/ INITIAL AFTER CABG A FIB HYPERLIPIDEMIA SSS S/P PPI vital signs Vital Sign Date Time Temp Pulse Resp B/P (MAP) Pulse Ox O2 Delivery O2 Flow Rate FiO2 07/21/24 07:00 117 18 115/72 (86) 94 07/21/24 06:00 Nasal Cannula* 2 28 07/21/24 02:15 98.7 98.7 Total Intake and Output 07/20/24 07/20/24 07/21/24 15:00 23:00 07:00 Intake Total 383.33 ml 1066.32 ml 102.19 ml Balance 383.33 ml 1066.32 ml 102.19 ml medications Current Medications Medications Dose Ordered Sig/Kenji Route Start Time Stop Time Status Last Admin Dose Admin Acetaminophen/ Hydrocodone Bitart 1 tab Q4HP PRN PO 07/20/24 11:45 Ondansetron HCl 4 mg Q4HP PRN IV 07/20/24 11:45 Acetaminophen 650 mg Q6HP PRN PO 07/20/24 11:45 Nitroglycerin 0.4 mg Q5MINP PRN SL 07/20/24 11:45 Morphine Sulfate 2 mg Q30M PRN IV 07/20/24 11:45 Apixaban 5 mg BID PO 07/20/24 22:00 07/20/24 22:09 5 MG Atorvastatin Calcium 20 mg DAILY PO 07/21/24 10:00 07/21/24 08:03 20 MG Levothyroxine Sodium 50 mcg QAM PO 07/21/24 07:00 07/21/24 06:31 50 MCG Trazodone HCl 50 mg HS PO 07/20/24 22:00 07/20/24 22:09 50 MG Hydroxyzine HCl 10 mg HSPRN PRN PO 07/20/24 11:45 Ceftriaxone Sodium 50 ml @ 100 mls/hr DAILY@09 IV 07/21/24 09:00 07/21/24 08:02 100 MLS/HR Ipratropium [place] 0.5 mg Q4HPRN PRN NEB 07/20/24 12:00 Albuterol 2.5 mg Q4HPRN PRN NEB 07/20/24 12:00 Norepinephrine Bitartrate 250 ml @ 3.75 mls/hr Q24H IV 07/20/24 12:30 07/20/24 13:02 3.75 MLS/HR Doxycycline Hyclate 100 ml @ 50 mls/hr Q12H IV 07/21/24 08:00 laboratory and microbiology Laboratory Tests 07/21/24 03:54 Test 07/21/24 03:54 Range/Units Serum Glucose 90 74-106 mg/dL Problem List SEEN IN [place] ER NOW WITH CHEST PAIN ELEVATED TROPONIN NSTEMI PMH ORGANIC HD CAD S/P CABG MULTIPLE CVA/ INITIAL AFTER CABG A FIB HYPERLIPIDEMIA SSS S/P PPI Assessment/Plan [facility] 07/21/24 echo pending Plan discussed with: Patient Critical Care Time(min): 35 BARBARA BAIN MD Jul 21, 2024 08:23
[2024-07-21 08:58] LABS: Rapid Influenza A Negative (Negative); Rapid Influenza B Negative (Negative)
[2024-07-21 08:59] LABS: COVID19 ANTIGEN SOFIA FIA NEGATIVE (NEGATIVE)
[2024-07-21] MEDS: DOXYCYCLINE 100MG/100ML 100 ML IV SCH (09:04)
[2024-07-21] MEDS: MAGNESIUM SULFATE 1GM/100ML 100 ML IV ONE (09:36)
[2024-07-21 09:44] LABS: Urine Bacteria None Seen /hpf (None Seen)
[2024-07-21 09:51] LABS: Urine Blood Negative /uL (Negative); Urine Clarity Clear (Clear); Urine Color Yellow (Yellow); Urine Mucus FEW (None Seen); Urine Protein, UAD Negative (Negative); Urine Specific Gravity 1.025 (1.001-1.035); Urine Squamous Epithelial Cell FEW /hpf (<5); Urine Urobilinogen 2 mg/dL (Negative); Urine WBC 1 /HPF (0-3); Urine pH 5.5 (5.0-9.0)
[2024-07-21] MEDS ORDERED: AZITHROMYCIN 500MG/ 250ML 250 ML IV SCH (10:00)
[2024-07-21] MEDS: POTASSIUM CHLORIDE 40 MEQ, LIDOCAINE 1% (LOCAL ANESTH.) 4 ML in SODIUM CHL 0.9% 250 ML IV ONE (10:19)
[2024-07-21 10:43] LABS: % Iron Saturation 7.9 % (20-55)
[2024-07-21 10:45] LABS: INR 1.44 (0.9-1.15); Partial Thromboplastin Time 27.1 SEC (24.5-34.5); Prothrombin Time 14.7 sec (9.3-11.8)
[2024-07-21 12:05] LABS: Ferritin 17.1 ng/mL (22-322)
[2024-07-21] MEDS: ANGIOMAX 250 MG VIAL IV ONE (12:29)
[2024-07-21] MEDS: fentaNYL CITRATE 100 MCG/2 ML VL ONE (12:30)
[2024-07-21] MEDS: MIDAZOLAM HCL 2MG/2ML 2ml VIAL (1mg/ml) ONE (12:31)
[2024-07-21] MEDS: LIDOCAINE 2%HCL (LOCAL ANESTH.) INJ 20ML MDV ONE (12:31)
[2024-07-21] MEDS: SODIUM CHL 0.9% 50 ML ONE (12:31)
[2024-07-21] MEDS: IOHEXOL 350 MG/ML 100ML IJ ONE ×2 (12:36→13:28)
--- NOTE | 2024-07-21 12:49 | DVHINCON2 ---
GI Consult Consult Note GI consult note Date of Consultation: 07/21/2024 Chief Complaint: Possible GI bleed Referring Physician: Giuseppe ALVAREZ H&P: 73-year-old male with past medical history of hypertension, CVAx 5, AFib, CHF. Hypothyroid, pacemaker, and hyperlipidemia transferred from [facility], and possible GI bleed Patient denies abdominal pain. No nausea or vomiting. Denies hematemesis. No melena or red blood in stool Patient is unaware of elevated liver enzymes. Denies history of alcohol use. 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 Family History: Noncontributory Review of Systems: Constitutional: no fever, chill, weight loss HEENT: no eye pain, no hearing loss, no oral lesion, no scleral icterus Heart: no chest pain, no chest pressure Lung: no cough, no dyspnea with exertion Abdomen: see HPI Physical exam: General: NAD, AAOX3 Chest: lung park clear to auscultation Heart: RRR, no murmur Abdomen: no tenderness to palpation, +BS Labs: Labs Test 07/21/24 09:45 07/21/24 08:35 07/21/24 08:15 07/21/24 03:54 Range/Units Prothrombin Time 14.7 H 9.3-11.8 sec Prothrombin Time INR 1.44 H 0.9-1.15 Activated Partial Thromboplast Time 27.1 24.5-34.5 SEC Iron Level 20 L 65-175 ug/dL Total Iron Binding Capacity 252 250-425 ug/dL Percent Iron Saturation 7.9 L 20-55 % Ferritin 17.1 L 22-322 ng/mL B-Type Natriuretic Peptide 400.36 0-100 pg/mL Vitamin B12 Level > 4000 H 211-911 pg/mL Urine Color Yellow Yellow Urine Clarity Clear Clear Urine pH 5.5 5.0-9.0 Urine Specific [place] 1.025 1.001-1.035 Urine Protein Negative Negative Urine Ketones Negative Negative Urine Blood Negative Negative /uL Urine Nitrite Negative Negative Urine Bilirubin Negative Negative Urine Urobilinogen 2 H Negative mg/dL Urine Leukocyte Esterase Negative Negative /uL Urine RBC 1 0 - 3 /hpf Urine Microscopic WBC 1 0-3 /HPF Urine Squamous Epithelial Cells Few <5 /hpf Urine Bacteria None seen None Seen /hpf Urine Mucus Few None Seen Urine Glucose Normal Normal mg/dL Influenza Type A Antigen Negative Negative Influenza Type B Antigen Negative Negative SARS-CoV-2 Antigen (Rapid) Negative NEGATIVE White Blood Count 7.2 4.4-10.8 10^3/uL Red Blood Count 3.53 L 4.5-5.90 10^6/uL Hemoglobin 10.7 #L 13.5-17.5 g/dL Hematocrit 31.9 L 41.0-53.0 % Mean Corpuscular Volume 90.6 # 80.0-100.0 fL Mean Corpuscular Hemoglobin 30.4 28.0-32.0 pg Mean Corpuscular Hemoglobin Concent 33.5 32.0-36.0 g/dL Red Cell Distribution Width 17.3 H 11.8-14.3 % Platelet Count 74 L 140-450 10^3/uL Mean Platelet Volume 8.6 6.9-10.8 fL Neutrophils (%) (Auto) 52.7 37.0-80.0 % Lymphocytes (%) (Auto) 25.8 10.0-50.0 % Monocytes (%) (Auto) 15.3 H 0.0-12.0 % Eosinophils (%) (Auto) 5.4 0.0-7.0 % Basophils (%) (Auto) 0.8 0.0-2.0 % Neutrophils # (Auto) 3.8 1.6-8.6 10 ^3/uL Lymphocytes # (Auto) 1.9 0.4-5.4 10 ^3/uL Monocytes # (Auto) 1.1 0-1.3 10 ^3/uL Eosinophils # (Auto) 0.4 0-0.8 10 ^3/uL Basophils # (Auto) 0.1 0-0.2 10 ^3/uL Nucleated Red Blood Cells 0.2 % Platelet Estimate Decreased Giant Platelets Few Sodium Level 141 136-145 mmol/L Potassium Level 3.5 3.5-5.1 mmol/L Chloride Level 110 H 98-107 mmol/L Carbon Dioxide Level 24 20-31 mmol/L Anion Gap 7 5-15 Blood Urea Nitrogen 12 9-23 mg/dL Creatinine 0.67 L 0.700-1.30 mg/dL Glomerular Filtration Rate Calc 99 >90 mL/min BUN/Creatinine Ratio 17.9 10.0-20.0 Serum Glucose 90 74-106 mg/dL Calcium Level 8.2 L 8.7-10.4 mg/dL Magnesium Level 1.8 1.6-2.6 mg/dL Total Bilirubin 1.2 H 0.2-1.0 mg/dL Aspartate Amino Transferase (AST) 51 H 13-40 U/L Alanine Aminotransferase (ALT) 24 7-40 U/L Alkaline Phosphatase 80 46-116 U/L Total Protein 5.9 5.7-8.2 g/dL Albumin 2.7 L 3.2-4.8 g/dL Test 07/20/24 10:41 Range/Units Troponin I High Sensitivity 1537 *H </=54 ng/L Imaging: Assessment: NSTEMI Possible GI bleed Elevated LFTs Plan: Discussed with Dr. Christiano Menard for occult blood Monitor labs Protonix Hepatitis panel Ultrasound of liver We will continue to follow the patient Thank you for this consult Date of Service: Jul 21, 2024 Billing Provider: MORTEZA CIFUENTES Common Visit Codes: CONSULT ONLY Consultation Codes: [id number] CONSULT <60MIN MORTEZA CIFUENTES Jul 21, 2024 12:49
[2024-07-21] MEDS: ASPirin 81 mg TAB ONE (13:37)
[2024-07-21] MEDS: CLOPIDOGREL BISULFATE 75 MG TAB ONE (13:37)
[2024-07-21] MEDS: FUROSEMIDE 40 MG/4 ML VIAL IV ONE (14:18)
--- NOTE | 2024-07-21 15:17 | DVH ---
EXAM: US Abdomen Complete CLINICAL INDICATION: elevated LFTs TECHNIQUE: Real-time ultrasound of the abdomen with image documentation. COMPARISON: None FINDINGS: LIVER: Coarse appearing liver concerning for cirrhosis. Clinical correlation is recommended. Live r measures up to 12.8 cm. No intrahepatic bile duct dilation. GALLBLADDER: Cholelithiasis and sludge. Negative Lawson's sign was reported by the manifest clerk. P ossible thickened gallbladder wall measuring up to 4 mm thick. COMMON BILE DUCT: CBD not visualized. PANCREAS: Unremarkable as visualized. KIDNEYS: Right kidney measures up to 10.6 cm. Left kidney measures up to 11.5 cm. No stones. No hydronephrosis. SPLEEN: Unremarkable. No splenomegaly. AORTA: Unremarkable. No aneurysm. INFERIOR VENA CAVA: Unremarkable. FREE FLUID: No ascites. OTHER FINDINGS: . . IMPRESSION: Coarse appearing liver concerning for cirrhosis. Clinical correlation is recommended. Findings equivocal for acute cholecystitis. Further evaluation HIDA scan is recommended.
--- NOTE | 2024-07-21 15:34 | DVHSR ---
APPROVED REPORT EXAM: Two-dimensional and M-mode echocardiogram with Doppler and color Doppler. INDICATION Chest Pain RISK FACTORS Height: 5'11", Weight: 156 DIMENSIONS LVDd6.4 (3.8-5.7cm)LA (2D)5.4 (1.9-4.0cm)Aortic Root3.9 (2.0-3.7cm) LVDs5.9 (2.5-4.0cm)LA (MM) (1.9-4.0cm)Aortic Cusp Exc0.9 (1.5-2.0cm) EF (%) 17.0 (55-70%)Rt. Atrium4.4 (1.9-4.0cm)Asc. Aorta3.8 cm IVSd0.8 (0.7-1.1cm)RV (D)4.4 (1.8-2.4cm) PWd0.8 (0.7-1.1cm) Mitral Valve MitralMitral Stenosis E wave1.13m/sMV Mean GR.mmHg E/A ratio0.02D MVAcm2 Aortic Valve Aortic ValveAortic Stenosis V10.86m/Idania Mean GR.9mmHg V21.77m/Idania Peak GR.14mmHg LVOT Diameter2.2 (1.8-2.4cm)Doppler AVA1.85cm2 2D AVA2.62cm2 AI P 1/2 Ekfk940.89ms Pulmonic Valve V20.68m/s Tricuspid Valve TR Velocity3.20m/s [id number] Conclusion Dilated LV. Severe LV dysfunction. EF 25-30%. Global hypokinesis. Unable to assess diastolic function . Normal RV size and function. Device leads seen in RA and RV. Moderate LA enlargement. Trileaflet aortic valve with sclerosis. Mild AI. Moderate MR. Mild TR. RVSP 58 mmHg + CVP. Normal IVC. No pericardial effusion. Atrial fibrillation with RVR.
--- NOTE | 2024-07-21 15:39 | DVHOP ---
DATE OF SURGERY: 07/21/2024 INDICATIONS: The patient with subendocardial KS. The patient has a history of coronary artery bypass grafting with MEEHAN to the LAD, saphenous vein graft to the OM, saphenous vein graft to the diagonal, saphenous vein graft to the PDA. The patient with marked elevation in blood troponin level consistent with acute closure of the saphenous vein graft. The patient now to undergo coronary angiography to define coronary anatomy. Further recommendations after. PROCEDURES PERFORMED: * Selective left and right coronary angiography, ventriculogram, right iliac angiography, angiography of the saphenous vein graft, subclavian vein. Conscious sedation. * Angioplasty with stent placement of the saphenous vein graft to the PDA with thrombectomy of the ostial segment. Deployment of the stent 3.5 x 22 mm [place] stent and further postdilated with a 4.0 noncompliant Euphora balloon. DESCRIPTION OF PROCEDURE: The patient was prepped and draped in a sterile condition. 1% Xylocaine used to anesthetize the right groin. Using Cook needle, right femoral artery was engaged with Seldinger technique, a 6-Yemeni sheath in the right femoral artery. Using 6-Yemeni JL4 diagnostic catheter and a 6-Yemeni JR4 diagnostic catheter, selective left and right coronary angiographies were performed. Using 6-Yemeni pigtail catheter, ventriculogram was done. Following that, using 6-Yemeni diagnostic system was exchanged for a 6-Yemeni interventional system. We initially wanted to do the left main so that we can revascularize the [place] circumflex, but that was heavily calcified. It was not going to close acutely but the saphenous vein graft had about an 80% narrowing ostially and therefore opening up the saphenous vein graft was far more important. We did not want to overload the patient with contrast. Therefore, a multipurpose guide catheter was used to cannulate the saphenous vein graft to the PDA. ChoICE PT extra support wire was used to cross the lesion followed by thrombectomy and shockwave treatment of the ostium of the RCA graft with a 3.0 x 12 mm shockwave balloon. Following that, a stent 3.5 x 22 mm Derek [place] stent was then deployed across the lesion at 16 atmospheres. It was then postdilated using a 4 mm x 15 mm Euphora noncompliant balloon. There were no complications. The patient tolerated the procedure well. RESULTS: * Left main had a high-grade distal lesion of greater than 90%. * Left anterior descending artery was occluded. * Circumflex heavily calcified, had a 90% narrowing ostially. * Right coronary artery was occluded. * Saphenous vein graft to the PDA was patent; however, had an 80% narrowing ostially, status post thrombectomy with shockwave treatment with stent placement, 3.5 x 22 mm Derek stent, postdilated to 4.1 mm. MEEHAN to the LAD was patent. [place] LAD was occluded. Ejection fraction was less than 25% with LVEDP of 15 mmHg with no gradient across the aortic valve. Underlying rhythm was atrial fibrillation. The patient will require further intervention of the left main and the [place] circumflex where the OM graft is closed, but is highly is still patent with a severe diffuse disease. The patient underwent successful angioplasty with stent placement of the saphenous vein graft to the PDA. Bradley Cuellar MD SA/MAXIMO/GUDELIA TID: [id number] RECEIPT: [id number]
[2024-07-21] MEDS: DIGOXIN (250MCG/ML) 2 ML AMPULE IV ONE (16:20)
--- NOTE | 2024-07-21 16:35 | DVHPNRES ---
Progress Note Date Seen: Jul 21, 2024 Resident Creating Document: SUE BUCKNER RESIDENT Medical Necessity Reason Pt with a Central, PICC or Fol: No The following are medically ne: Gonzáles Catheter Subjective Review of Systems This is a 73-year-old male who was transferred from [facility] for NSTEMI. Patient went to [facility] for generalized weakness, found to have elevated troponin and possible GI bleed, so he was transferred here for higher level of care for NSTEMI. PMH: AFIB, CHF, HTN, hyperipidemia, pacemaker, CVA (x 5), Hypothyroidism Past Surgical History: CABG, Other (Pacemaker, right leg surgery) SH: Smoke: No. ALCOHOL: none. Drugs: None. Lives: with Family Patient was found to be in atrial fibrillation with RVR, and hypotensive. Cardiology was consulted, IV fluids, and IV amiodarone, were given. Patient remained hypotensive, Levophed was started. On my initial assessment, patient was seen and examined at bedside. Currently states feeling well, denies any significant shortness of breath, chest pain, abdominal pain, dysuria, nausea, vomiting, diarrhea, constipation, dizziness, lightheadedness. Currently tolerating diet. Patient had an EKG, no acute ST-T changes were seen. Patient's troponins were elevated. Cardiology performed a left heart catheterization today, a stent was placed as well. Open Cut Examiner also assess the patient due to possible GI bleed, no current active signs of bleeding, hemoglobin is currently at 10.7. Patient only complain of generalized weakness, denies any significant chest pain, abdominal pain, nausea, vomiting, diarrhea, constipation. Objective vital signs Vital Sign Date Time Temp Pulse Resp B/P (MAP) Pulse Ox O2 Delivery O2 Flow Rate FiO2 07/21/24 16:00 130 15 108/75 (86) 97 07/21/24 15:32 Nasal Cannula* 2 28 07/21/24 12:00 97.9 97.9 Total Intake and Output 07/20/24 07/20/24 07/21/24 15:00 23:00 07:00 Intake Total 383.33 ml 1066.32 ml 130.10 ml Balance 383.33 ml 1066.32 ml 130.10 ml medications Current Medications Medications Dose Ordered Sig/Kenji Route Start Time Stop Time Status Last Admin Dose Admin Acetaminophen/ Hydrocodone Bitart 1 tab Q4HP PRN PO 07/20/24 11:45 Ondansetron HCl 4 mg Q4HP PRN IV 07/20/24 11:45 Acetaminophen 650 mg Q6HP PRN PO 07/20/24 11:45 Nitroglycerin 0.4 mg Q5MINP PRN SL 07/20/24 11:45 Morphine Sulfate 2 mg Q30M PRN IV 07/20/24 11:45 Atorvastatin Calcium 20 mg DAILY PO 07/21/24 10:00 07/21/24 08:03 20 MG Levothyroxine Sodium 50 mcg QAM PO 07/21/24 07:00 07/21/24 06:31 50 MCG Trazodone HCl 50 mg HS PO 07/20/24 22:00 07/20/24 22:09 50 MG Hydroxyzine HCl 10 mg HSPRN PRN PO 07/20/24 11:45 Ceftriaxone Sodium 50 ml @ 100 mls/hr DAILY@09 IV 07/21/24 09:00 07/21/24 08:02 100 MLS/HR Ipratropium [place] 0.5 mg Q4HPRN PRN NEB 07/20/24 12:00 Albuterol 2.5 mg Q4HPRN PRN NEB 07/20/24 12:00 Norepinephrine Bitartrate 250 ml @ 3.75 mls/hr Q24H IV 07/20/24 12:30 07/20/24 13:02 3.75 MLS/HR Doxycycline Hyclate 100 ml @ 50 mls/hr Q12H IV 07/21/24 08:00 07/21/24 09:04 50 MLS/HR Furosemide 40 mg DAILY IV 07/22/24 10:00 Pantoprazole Sodium 40 mg DAILY IV 07/22/24 10:00 Clopidogrel Bisulfate 75 mg DAILY PO 07/22/24 10:00 Aspirin 81 mg DAILY PO 07/22/24 10:00 Examination Physical examination as below: General: Awake, alert, comfortable appearing, in no acute distress. HEENT: Head is normocephalic and atraumatic. Pupils are equal, round, and reactive to light. Extraocular muscles are intact. No nasal discharge. No facial trauma. Intraoral exam shows moist mucous membranes with no tonsillar enlargement or exudate. Neck: Supple with no cervical lymphadenopathy. Heart: Regular rate without murmur, rub, or gallop. Lungs: Equal breath sounds bilaterally with no wheezing, rales, or rhonchi. There is no chest wall tenderness or instability. Abdomen: No external sign of injury. Bowel sounds are present. Abdomen is soft, nontender. No rebound, no guarding, no rigidity. There are no palpable masses. There is no flank pain on exam. Extremities: Strong peripheral pulses. There is no clubbing, no cyanosis, and no edema. Skin: No rash. Neurologic: Cranial nerves II-XII intact without motor, sensory, or cerebellar deficit, no asterixis. laboratory and microbiology Laboratory Tests 07/21/24 03:54 Test 07/21/24 03:54 Range/Units Serum Glucose 90 74-106 mg/dL Microbiology Date/Time Source Procedure Growth Status 07/21/24 02:20 Nose MRSA Screen - Final Complete Labs and/or images reviewed: Labs reviewed by me, Image(s) reviewed by me Problem List/Assessment/Plan Problem List/Assessment/Plan NSTEMI (non-ST elevated myocardial infarction), s/p PCIx1 H/o CABG Possible GI bleed, Atrial fibrillation with RVR, Possible pneumonia, Gram-positive versus Gram-negative versus atypical Acute hypoxic respiratory failure Possible Septic shock due to above H/o Hypertension Hypothyroidism, Acute on chronic systolic CHF Pacemaker H/o CVAx5 Hyperlipidemia Moderate anemia, normocytic normochromic Liver cirrhosis Thrombocytopenia, due to above Secondary coagulopathy Severe protein malnutrition Plan: Left heart catheterization today, s/p 1 stent placed Continue DAPT, Lipitor. Continue Lasix 40 mg IV q.d. Continue amiodarone drip Digoxin 250 mcg IV once Pending blood culture, urine culture Continue Rocephin and doxycycline IV Duonebs prn COVID and flu negative Stool occult blood test Cardiology following, s/p [facility] Open Cut Examiner following, pending SOB, hepatitis panel PUD ppx: protonix Goals of care were discussed for over 30 minutes. FULL CODE. Case was discussed with Dr. Magallanes critical care time 43 mins Plan discussed with: Patient, Other (RN) My Orders My Orders Orders - SUE BUCKNER Procedure Category Date Status Time Ferritin LAB 07/21/24 In Process 07:51 Echo 2d Mode Cardiac US 07/21/24 Resulted DOP 07:51 Doxycycline PHA 07/21/24 In Process 100mg/100ml 08:00 Vitamin B12 LAB 07/21/24 In Process 07:51 Folate (Folic Acid) LAB 07/21/24 In Process 07:51 * Picc Line Consult CONS 07/21/24 Transmitted 09:18 Furosemide Injection PHA 07/22/24 In Process (Lasix Injection) 10:00 Complete Blood Count LAB 07/22/24 Verified 04:00 Comprehensive LAB 07/22/24 Verified Metabolic Panel 04:00 Magnesium LAB 07/22/24 Verified 04:00 Chest Portable XY 07/22/24 Verified 04:00 Date of Service: Jul 21, 2024 Billing Provider: TRIPP MAGALLANES MD Common Visit Codes: [id number] CARE 30-74 MIN SUE BUCKNER RESIDENT Jul 21, 2024 16:35 TRIPP MAGALLANES MD Jul 27, 2024 12:08
[2024-07-22] VITALS (69 sets, daily range): BP systolic 75–115; BP diastolic 37–72; PULSE 85–131; RESP 12–31; TEMP 98.1–99.3; O2SAT 94–99
[2024-07-22 04:04] LABS: Basophils # (auto) 0 10 ^3/uL (0-0.2); Basophils % (auto) 0.7 % (0.0-2.0); Eosinophils # (auto) 0.3 10 ^3/uL (0-0.8); Hematocrit 27.6 % (41.0-53.0); Hemoglobin 9.3 g/dL (13.5-17.5); Lymphocytes # (auto) 1.1 10 ^3/uL (0.4-5.4); Lymphocytes % (auto) 21.8 % (10.0-50.0); Mean Corpuscular Hemoglobin 30.6 pg (28.0-32.0); Mean Corpuscular Hgb Conc. 33.6 g/dL (32.0-36.0); Monocytes # (auto) 0.7 10 ^3/uL (0-1.3); Monocytes % (auto) 13.7 % (0.0-12.0); Neutrophils % (auto) 58.8 % (37.0-80.0); Nucleated Red Blood Cells % 0.1 %; Platelet Count (auto) 85 10^3/uL (140-450); Red Blood Cells 3.03 10^6/uL (4.5-5.90); Red Cell Distribution Width 17.2 % (11.8-14.3); White Blood Cell 5.1 10^3/uL (4.4-10.8)
[2024-07-22 04:20] LABS: Alanine Aminotransferase 22 U/L (7-40); Alkaline Phosphatase 73 U/L (46-116); Anion Gap 6 (5-15); Aspartate Aminotransferase 39 U/L (13-40); BUN/Creatinine Ratio 16.4 (10.0-20.0); Blood Urea Nitrogen 12 mg/dL (9-23); Carbon Dioxide 27 mmol/L (20-31); Chloride 105 mmol/L (98-107); Glucose 96 mg/dL (74-106); Magnesium 1.9 mg/dL (1.6-2.6); Sodium 138 mmol/L (136-145)
[2024-07-22 04:21] LABS: Bilirubin, Total 0.9 mg/dL (0.2-1.0)
[2024-07-22 04:32] LABS: Albumin 2.4 g/dL (3.2-4.8); Calcium 8.1 mg/dL (8.7-10.4); Potassium 3.4 mmol/L (3.5-5.1); Total Protein 5.3 g/dL (5.7-8.2)
[2024-07-22] MEDS: POTASSIUM CHL 20MEQ/100ML 100 ML IV ONE (05:15)
--- NOTE | 2024-07-22 05:46 | DVH ---
CHEST RADIOGRAPH Indication: sob Technique: Single frontal view of the chest was obtained Comparison: XY CHEST PORTABLE on DOS: 07/20/24, XY CHEST PORTABLE on DOS: 01/24/24, XY CHEST PORTABLE on DOS: 10/13/23 FINDINGS: Lines and Tubes: Dual-chamber pacemaker with right atrial and ventricular leads. Lungs: Hazy bilateral opacities. Pleura: No effusion. No pneumothorax. Cardiomediastinal contours: Stable Cardiovascular silhouette. Bones: No acute osseous abnormality. IMPRESSION: 1. Hazy bilateral opacities compatible with edema or pneumonia.
--- NOTE | 2024-07-22 07:49 | DVHPN2 ---
Progress Note - Dictate Date Seen: Jul 22, 2024 Medical Necessity Reason Pt with a Central, PICC or Fol: No The following are medically ne: Gonzáles Catheter Subjective PT WELL KNOWN TO ME SEEN IN [place] ER NOW WITH CHEST PAIN ELEVATED TROPONIN NSTEMI PMH ORGANIC HD CAD S/P CABG MULTIPLE CVA/ INITIAL AFTER CABG A FIB HYPERLIPIDEMIA SSS S/P PPI vital signs Vital Sign Date Time Temp Pulse Resp B/P (MAP) Pulse Ox O2 Delivery O2 Flow Rate FiO2 07/22/24 07:32 97 Nasal Cannula* 3 32 07/22/24 06:45 104 18 96/51 (66) 07/22/24 04:00 98.2 98.2 Total Intake and Output 07/21/24 07/21/24 07/22/24 15:00 23:00 07:00 Intake Total 503.78 ml 483.28 ml 956.62 ml Output Total 2500 ml 1075 ml Balance 503.78 ml -2016.72 ml -118.38 ml medications Current Medications Medications Dose Ordered Sig/Kenji Route Start Time Stop Time Status Last Admin Dose Admin Acetaminophen/ Hydrocodone Bitart 1 tab Q4HP PRN PO 07/20/24 11:45 Ondansetron HCl 4 mg Q4HP PRN IV 07/20/24 11:45 Acetaminophen 650 mg Q6HP PRN PO 07/20/24 11:45 Nitroglycerin 0.4 mg Q5MINP PRN SL 07/20/24 11:45 Morphine Sulfate 2 mg Q30M PRN IV 07/20/24 11:45 Atorvastatin Calcium 20 mg DAILY PO 07/21/24 10:00 07/21/24 08:03 20 MG Levothyroxine Sodium 50 mcg QAM PO 07/21/24 07:00 07/22/24 06:34 50 MCG Trazodone HCl 50 mg HS PO 07/20/24 22:00 07/21/24 21:50 50 MG Hydroxyzine HCl 10 mg HSPRN PRN PO 07/20/24 11:45 Ceftriaxone Sodium 50 ml @ 100 mls/hr DAILY@09 IV 07/21/24 09:00 07/21/24 08:02 100 MLS/HR Ipratropium [place] 0.5 mg Q4HPRN PRN NEB 07/20/24 12:00 Albuterol 2.5 mg Q4HPRN PRN NEB 07/20/24 12:00 Norepinephrine Bitartrate 250 ml @ 3.75 mls/hr Q24H IV 07/20/24 12:30 07/20/24 13:02 3.75 MLS/HR Doxycycline Hyclate 100 ml @ 50 mls/hr Q12H IV 07/21/24 08:00 07/21/24 19:59 50 MLS/HR Furosemide 40 mg DAILY IV 07/22/24 10:00 Pantoprazole Sodium 40 mg DAILY IV 07/22/24 10:00 Clopidogrel Bisulfate 75 mg DAILY PO 07/22/24 10:00 Aspirin 81 mg DAILY PO 07/22/24 10:00 laboratory and microbiology Laboratory Tests 07/22/24 03:40 Test 07/22/24 03:40 Range/Units Serum Glucose 96 74-106 mg/dL Problem List SEEN IN [place] NOW WITH CHEST PAIN ELEVATED TROPONIN NSTEMI PMH ORGANIC HD CAD S/P CABG MULTIPLE CVA/ INITIAL AFTER CABG A FIB HYPERLIPIDEMIA SSS S/P PPI Assessment/Plan [facility] 07/21/24 * Left main had a high-grade distal lesion of greater than 90%. * Left anterior descending artery was occluded. * Circumflex heavily calcified, had a 90% narrowing ostially. * Right coronary artery was occluded. * Saphenous vein graft to the PDA was patent; however, had an 80% narrowing ostially, status post thrombectomy with shockwave treatment with stent placement, 3.5 x 22 mm Derek stent, postdilated to 4.1 mm. MEEHAN to the LAD was patent. [place] LAD was occluded. Ejection fraction was less than 25% with LVEDP of 15 mmHg with no gradient across the aortic valve. Underlying rhythm was atrial fibrillation. The patient will require further intervention of the left main and the [place] circumflex where the OM graft is closed, but is highly is still patent with a severe diffuse disease. The patient underwent successful angioplasty with stent placement of the saphenous vein graft to the PDA. ECHO SEGMENTAL WALL MOTION ABNL EF 25% PLAVIX REINITIATE ELIQUIS IN 1 WEEK AT A LOWER DOSE Plan discussed with: Patient Critical Care Time(min): 35 BARBARA BAIN MD Jul 22, 2024 07:49
[2024-07-22] MEDS: POTASSIUM CHL 20MEQ/50ML 50 ML IV ONE (08:12)
[2024-07-22 09:02] LABS: Hepatitis B Core Total AB Negative (Negative)
[2024-07-22] MEDS: AMIODARONE HCL 200 MG TAB PO SCH (09:50)
--- NOTE | 2024-07-22 10:50 | DVHPNRES ---
Progress Note Date Seen: Jul 22, 2024 Resident Creating Document: SUE BUCKNER RESIDENT Medical Necessity Reason Pt with a Central, PICC or Fol: No The following are medically ne: Gonzáles Catheter Subjective Review of Systems On my initial assessment, patient was seen and examined at bedside. Currently states feeling well, denies any significant shortness of breath, chest pain, abdominal pain, dysuria, nausea, vomiting, diarrhea, constipation, dizziness, lightheadedness. Currently tolerating diet. Objective vital signs Vital Sign Date Time Temp Pulse Resp B/P (MAP) Pulse Ox O2 Delivery O2 Flow Rate FiO2 07/22/24 09:45 108 17 98/57 (71) 99 07/22/24 08:00 Nasal Cannula* 2 28 07/22/24 04:00 98.2 98.2 Total Intake and Output 07/21/24 07/21/24 07/22/24 15:00 23:00 07:00 Intake Total 503.78 ml 483.28 ml 973.28 ml Output Total 2500 ml 1075 ml Balance 503.78 ml -2016.72 ml -101.72 ml medications Current Medications Medications Dose Ordered Sig/Kenji Route Start Time Stop Time Status Last Admin Dose Admin Acetaminophen/ Hydrocodone Bitart 1 tab Q4HP PRN PO 07/20/24 11:45 Ondansetron HCl 4 mg Q4HP PRN IV 07/20/24 11:45 Acetaminophen 650 mg Q6HP PRN PO 07/20/24 11:45 Nitroglycerin 0.4 mg Q5MINP PRN SL 07/20/24 11:45 Morphine Sulfate 2 mg Q30M PRN IV 07/20/24 11:45 Atorvastatin Calcium 20 mg DAILY PO 07/21/24 10:00 07/21/24 08:03 20 MG Levothyroxine Sodium 50 mcg QAM PO 07/21/24 07:00 07/22/24 06:34 50 MCG Trazodone HCl 50 mg HS PO 07/20/24 22:00 07/21/24 21:50 50 MG Hydroxyzine HCl 10 mg HSPRN PRN PO 07/20/24 11:45 Ipratropium [place] 0.5 mg Q4HPRN PRN NEB 07/20/24 12:00 Albuterol 2.5 mg Q4HPRN PRN NEB 07/20/24 12:00 Doxycycline Hyclate 100 ml @ 50 mls/hr Q12H IV 07/21/24 08:00 07/22/24 08:12 50 MLS/HR Furosemide 40 mg DAILY IV 07/22/24 10:00 Pantoprazole Sodium 40 mg DAILY IV 07/22/24 10:00 Clopidogrel Bisulfate 75 mg DAILY PO 07/22/24 10:00 Aspirin 81 mg DAILY PO 07/22/24 10:00 Amiodarone HCl 200 mg Q12HR PO 07/22/24 10:00 07/22/24 09:50 200 MG Digoxin 250 mcg Q6H IV 07/22/24 08:45 Polyethylene Glycol 17 gm DAILYPRN PRN PO 07/22/24 08:45 Piperacillin Sod/ Tazobactam Sod 100 ml @ 25 mls/hr Q8HR IV 07/22/24 14:00 Examination Physical examination as below: General: Awake, alert, comfortable appearing, in no acute distress. HEENT: Head is normocephalic and atraumatic. Pupils are equal, round, and reactive to light. Extraocular muscles are intact. No nasal discharge. No facial trauma. Intraoral exam shows moist mucous membranes with no tonsillar enlargement or exudate. Neck: Supple with no cervical lymphadenopathy. Heart: Regular rate without murmur, rub, or gallop. Lungs: Equal breath sounds bilaterally with no wheezing, rales, or rhonchi. There is no chest wall tenderness or instability. Abdomen: No external sign of injury. Bowel sounds are present. Abdomen is soft, nontender. No rebound, no guarding, no rigidity. There are no palpable masses. There is no flank pain on exam. Extremities: Strong peripheral pulses. There is no clubbing, no cyanosis, and no edema. Skin: No rash. Neurologic: Cranial nerves II-XII intact without motor, sensory, or cerebellar deficit, no asterixis. Examination: GENERAL:Normal, HEENT:Normal, NECK:Normal, LUNGS:Normal, CVS:Normal, ABDOMEN:Normal laboratory and microbiology Laboratory Tests 07/22/24 03:40 Test 07/22/24 03:40 Range/Units Serum Glucose 96 74-106 mg/dL Microbiology Date/Time Source Procedure Growth Status 07/21/24 02:20 Nose MRSA Screen - Final Complete Labs and/or images reviewed: Labs reviewed by me, Image(s) reviewed by me Problem List/Assessment/Plan Problem List/Assessment/Plan NSTEMI (non-ST elevated myocardial infarction), s/p PCIx1 H/o CABG Possible GI bleed, Atrial fibrillation with RVR, Possible pneumonia, Gram-positive versus Gram-negative versus atypical Acute hypoxic respiratory failure Possible Septic shock due to above H/o Hypertension Hypothyroidism, Acute on chronic systolic CHF Pacemaker H/o CVAx5 Hyperlipidemia Moderate anemia, normocytic normochromic Liver cirrhosis Thrombocytopenia, due to above Secondary coagulopathy Severe protein malnutrition Plan: Continue DAPT, Lipitor. Continue Lasix 40 mg IV q.d. Discontinue amiodarone drip, transition to 200mg po bid Digoxin 250 mcg IV (3 doses) Metoprolol 25mg po bid Pending blood culture, urine culture Continue Zosyn and doxycycline IV Duonebs prn COVID and flu negative Stool occult blood test pending Cardiology following, s/p LHC PCIx1 [place] following, pending SOB, hepatitis panel Downgrade to telemetry PUD ppx: protonix Goals of care were discussed for over 30 minutes. FULL CODE. Case was discussed with Dr. Farrar Plan discussed with: Patient, Other (RN) My Orders My Orders Orders - SUE BUCKNER RESIDENT Procedure Category Date Status Time Furosemide Injection PHA 07/22/24 In Process (Lasix Injection) 10:00 Chest Portable XY 07/22/24 Resulted 04:00 Amiodarone Tablet PHA 07/22/24 In Process (Cordarone Tablet) 10:00 Digoxin Injection PHA 07/22/24 In Process (Lanoxin Injection) 08:45 Transfer Orders XFER 07/22/24 Transmitted 08:45 Polyethylene Glycol PHA 07/22/24 In Process 17g Powder (Miralax 08:45 Blood Culture JEFFREY 07/22/24 In Process 08:50 Drug Screen LAB 07/22/24 Logged 08:50 Respiratory Culture JEFFREY 07/22/24 Logged W/ Gs 08:50 Piperacillin-Tazob PHA 07/22/24 In Process 3.375gm (Zosyn 3.375g 14:00 Digoxin (Lanoxin) LAB 07/22/24 In Process 08:55 Basic Metabolic Panel LAB 07/23/24 Verified 04:00 Magnesium LAB 07/23/24 Verified 04:00 Date of Service: Jul 22, 2024 Billing Provider: VIDA FARRAR DO Common Visit Codes: [id number] CARE 30-74 MIN, [id number] CARE-EACH +30MIN SUE BUCKNER RESIDENT Jul 22, 2024 10:50 VIDA FARRAR DO Jul 23, 2024 10:39
[2024-07-22] MEDS: DIGOXIN (250MCG/ML) 2 ML AMPULE IV SCH (12:03)
[2024-07-22] MEDS: CLOPIDOGREL BISULFATE 75 MG TAB PO SCH (12:04)
[2024-07-22] MEDS: ASPirin 81 mg TAB PO SCH (12:04)
[2024-07-22] MEDS: PANTOPRAZOLE 40 MG/10 ML VIAL INJ IV SCH (12:05)
[2024-07-22] MEDS: FUROSEMIDE 40 MG/4 ML VIAL IV SCH (12:05)
[2024-07-22] MEDS: MAGNESIUM SULFATE 1GM/100ML 100 ML IV ONE (12:06)
[2024-07-22] MEDS: POTASSIUM CHL 20 Meq TABLET PO ONE (12:09)
[2024-07-22 13:41] LABS: Hepatitis A Total Antibody Positive (Negative); Hepatitis B Surface Antibody Negative (Negative); Hepatitis B Surface Antigen Negative (Negative); Hepatitis C Antibody Negative (Negative)
[2024-07-22] MEDS ORDERED: METOPROLOL SUCCINATE XL 50 MG TAB PO ONE (14:30)
[2024-07-22] MEDS: METOPROLOL TARTRATE 25 MG TAB PO ONE (14:38)
[2024-07-22] MEDS: PIPERACILLIN-TAZOB 3.375GM 100 ML IV SCH (14:39)
[2024-07-22 18:22] LABS: Folate (Folic Acid) > 24.00 ng/mL (>5.38)
[2024-07-22] MEDS: METOPROLOL TARTRATE 25 MG TAB PO SCH (22:00)
[2024-07-22] MEDS ORDERED: METOPROLOL SUCCINATE XL 50 MG TAB PO SCH (22:00)
[2024-07-23] VITALS (13 sets, daily range): BP systolic 74–100; BP diastolic 42–64; PULSE 82–116; RESP 16–20; TEMP 97.4–98.4; O2SAT 92–97
[2024-07-23 07:13] LABS: Chloride 101 mmol/L (98-107); Potassium 3.6 mmol/L (3.5-5.1); Sodium 136 mmol/L (136-145)
[2024-07-23 07:14] LABS: Anion Gap 5 (5-15); Carbon Dioxide 30 mmol/L (20-31)
[2024-07-23 07:19] LABS: BUN/Creatinine Ratio 15.4 (10.0-20.0); Blood Urea Nitrogen 12 mg/dL (9-23); Glucose 84 mg/dL (74-106)
[2024-07-23 07:20] LABS: Magnesium 1.9 mg/dL (1.6-2.6)
[2024-07-23] MEDS: ALBUMIN 25% 100 ML IV ONE (11:20)
[2024-07-23] MEDS: SODIUM CHLORIDE 0.9% 1,000 ML IV ONE (11:24)
[2024-07-23] MEDS: PANTOPRAZOLE 40 MG/10 ML VIAL INJ IV SCH (11:47)
[2024-07-23] MEDS: POLYETHYLENE GLYCOL 17 GM PWDR PO PRN (11:56)
--- NOTE | 2024-07-23 14:34 | DVHPN2 ---
Progress Note - Dictate Date Seen: Jul 23, 2024 Medical Necessity Reason Pt with a Central, PICC or Fol: No The following are medically ne: Gonzáles Catheter Subjective PT WELL KNOWN TO ME SEEN IN [facility] NOW WITH CHEST PAIN ELEVATED TROPONIN NSTEMI PMH ORGANIC HD CAD S/P CABG MULTIPLE CVA/ INITIAL AFTER CABG A FIB HYPERLIPIDEMIA SSS S/P PPI vital signs Vital Sign Date Time Temp Pulse Resp B/P (MAP) Pulse Ox O2 Delivery O2 Flow Rate FiO2 07/23/24 14:00 89 93/56 (68) 07/23/24 13:00 98.4 18 93 98.4 07/23/24 09:13 Nasal Cannula 2.0 07/23/24 09:13 28 Total Intake and Output 07/22/24 07/22/24 07/23/24 15:00 23:00 07:00 Intake Total 349.96 ml 100 ml 800 ml Output Total 1750 ml Balance 349.96 ml 100 ml -950 ml medications Current Medications Medications Dose Ordered Sig/Kenji Route Start Time Stop Time Status Last Admin Dose Admin Acetaminophen/ Hydrocodone Bitart 1 tab Q4HP PRN PO 07/20/24 11:45 Ondansetron HCl 4 mg Q4HP PRN IV 07/20/24 11:45 Acetaminophen 650 mg Q6HP PRN PO 07/20/24 11:45 Nitroglycerin 0.4 mg Q5MINP PRN SL 07/20/24 11:45 Morphine Sulfate 2 mg Q30M PRN IV 07/20/24 11:45 Atorvastatin Calcium 20 mg DAILY PO 07/21/24 10:00 07/23/24 11:47 20 MG Levothyroxine Sodium 50 mcg QAM PO 07/21/24 07:00 07/23/24 06:10 50 MCG Trazodone HCl 50 mg HS PO 07/20/24 22:00 07/22/24 22:21 50 MG Hydroxyzine HCl 10 mg HSPRN PRN PO 07/20/24 11:45 Ipratropium [place] 0.5 mg Q4HPRN PRN NEB 07/20/24 12:00 Albuterol 2.5 mg Q4HPRN PRN NEB 07/20/24 12:00 Doxycycline Hyclate 100 ml @ 50 mls/hr Q12H IV 07/21/24 08:00 07/23/24 11:47 50 MLS/HR Clopidogrel Bisulfate 75 mg DAILY PO 07/22/24 10:00 07/23/24 11:48 75 MG Aspirin 81 mg DAILY PO 07/22/24 10:00 07/23/24 11:47 81 MG Polyethylene Glycol 17 gm DAILYPRN PRN PO 07/22/24 08:45 07/23/24 11:56 17 GM Piperacillin Sod/ Tazobactam Sod 100 ml @ 25 mls/hr Q8HR IV 07/22/24 14:00 07/23/24 06:10 25 MLS/HR Metoprolol Tartrate 25 mg BID PO 07/22/24 22:00 Pantoprazole Sodium 40 mg BID IV 07/23/24 10:00 07/23/24 11:47 40 MG Amiodarone HCl 200 mg DAILY PO 07/24/24 10:00 laboratory and microbiology Laboratory Tests 07/23/24 05:36 07/22/24 03:40 Test 07/23/24 05:36 Range/Units Serum Glucose 84 74-106 mg/dL Problem List SEEN IN [facility] NOW WITH CHEST PAIN ELEVATED TROPONIN NSTEMI PMH ORGANIC HD CAD S/P CABG MULTIPLE CVA/ INITIAL AFTER CABG A FIB HYPERLIPIDEMIA SSS S/P PPI Assessment/Plan [facility] 07/21/24 * Left main had a high-grade distal lesion of greater than 90%. * Left anterior descending artery was occluded. * Circumflex heavily calcified, had a 90% narrowing ostially. * Right coronary artery was occluded. * Saphenous vein graft to the PDA was patent; however, had an 80% narrowing ostially, status post thrombectomy with shockwave treatment with stent placement, 3.5 x 22 mm Derek stent, postdilated to 4.1 mm. MEEHAN to the LAD was patent. [place] LAD was occluded. Ejection fraction was less than 25% with LVEDP of 15 mmHg with no gradient across the aortic valve. Underlying rhythm was atrial fibrillation. The patient will require further intervention of the left main and the [place] circumflex where the OM graft is closed, but is highly is still patent with a severe diffuse disease. The patient underwent successful angioplasty with stent placement of the saphenous vein graft to the PDA. ECHO SEGMENTAL WALL MOTION ABNL EF 25% PLAVIX REINITIATE ELIQUIS IN 1 WEEK AT A LOWER DOSE LEFT MAIN AND ALGAACIQ CX INTERVENTION ON FRIDAY Dietary Evaluation Review Comments: 1. Continue Cardiac diet as tolerated 2. Add trial of Ensure Enlive daily to enhance nutritional status 3. Continue daily wt's to trend Expected Outcomes/Goals: Adequate nutrition, weight maintenance. Plan discussed with: Patient Critical Care Time(min): 35 BARBARA BAIN MD Jul 23, 2024 14:34
--- NOTE | 2024-07-23 14:50 | DVHPNRES ---
Progress Note Date Seen: Jul 23, 2024 Resident Creating Document: SUE BUCKNER RESIDENT Medical Necessity Reason Pt with a Central, PICC or Fol: No The following are medically ne: Gonzáles Catheter Subjective Review of Systems On my initial assessment, patient was seen and examined at bedside. Currently states feeling well, denies any significant shortness of breath, chest pain, abdominal pain, dysuria, nausea, vomiting, diarrhea, constipation, dizziness, lightheadedness. Currently tolerating diet. He only complains of generalized weakness. Patient's blood pressure is borderline, map 57 to 65. Patient was given IV fluid bolus of NS 250 and albumin as well, patient responded to the fluids. Objective vital signs Vital Sign Date Time Temp Pulse Resp B/P (MAP) Pulse Ox O2 Delivery O2 Flow Rate FiO2 07/23/24 14:00 89 93/56 (68) 07/23/24 13:00 98.4 18 93 98.4 07/23/24 09:13 Nasal Cannula 2.0 07/23/24 09:13 28 Total Intake and Output 07/22/24 07/22/24 07/23/24 15:00 23:00 07:00 Intake Total 349.96 ml 100 ml 800 ml Output Total 1750 ml Balance 349.96 ml 100 ml -950 ml medications Current Medications Medications Dose Ordered Sig/Kenji Route Start Time Stop Time Status Last Admin Dose Admin Acetaminophen/ Hydrocodone Bitart 1 tab Q4HP PRN PO 07/20/24 11:45 Ondansetron HCl 4 mg Q4HP PRN IV 07/20/24 11:45 Acetaminophen 650 mg Q6HP PRN PO 07/20/24 11:45 Nitroglycerin 0.4 mg Q5MINP PRN SL 07/20/24 11:45 Morphine Sulfate 2 mg Q30M PRN IV 07/20/24 11:45 Atorvastatin Calcium 20 mg DAILY PO 07/21/24 10:00 07/23/24 11:47 20 MG Levothyroxine Sodium 50 mcg QAM PO 07/21/24 07:00 07/23/24 06:10 50 MCG Trazodone HCl 50 mg HS PO 07/20/24 22:00 07/22/24 22:21 50 MG Hydroxyzine HCl 10 mg HSPRN PRN PO 07/20/24 11:45 Ipratropium [place] 0.5 mg Q4HPRN PRN NEB 07/20/24 12:00 Albuterol 2.5 mg Q4HPRN PRN NEB 07/20/24 12:00 Doxycycline Hyclate 100 ml @ 50 mls/hr Q12H IV 07/21/24 08:00 07/23/24 11:47 50 MLS/HR Clopidogrel Bisulfate 75 mg DAILY PO 07/22/24 10:00 07/23/24 11:48 75 MG Aspirin 81 mg DAILY PO 07/22/24 10:00 07/23/24 11:47 81 MG Polyethylene Glycol 17 gm DAILYPRN PRN PO 07/22/24 08:45 07/23/24 11:56 17 GM Piperacillin Sod/ Tazobactam Sod 100 ml @ 25 mls/hr Q8HR IV 07/22/24 14:00 07/23/24 06:10 25 MLS/HR Metoprolol Tartrate 25 mg BID PO 07/22/24 22:00 Pantoprazole Sodium 40 mg BID IV 07/23/24 10:00 07/23/24 11:47 40 MG Amiodarone HCl 200 mg DAILY PO 07/24/24 10:00 Examination Physical examination as below: General: Awake, alert, comfortable appearing, in no acute distress. HEENT: Head is normocephalic and atraumatic. Pupils are equal, round, and reactive to light. Extraocular muscles are intact. No nasal discharge. No facial trauma. Intraoral exam shows moist mucous membranes with no tonsillar enlargement or exudate. Neck: Supple with no cervical lymphadenopathy. Heart: Regular rate without murmur, rub, or gallop. Lungs: Equal breath sounds bilaterally with no wheezing, rales, or rhonchi. There is no chest wall tenderness or instability. Abdomen: No external sign of injury. Bowel sounds are present. Abdomen is soft, nontender. No rebound, no guarding, no rigidity. There are no palpable masses. There is no flank pain on exam. Extremities: Strong peripheral pulses. There is no clubbing, no cyanosis, and no edema. Skin: No rash. Neurologic: Cranial nerves II-XII intact without motor, sensory, or cerebellar deficit, no asterixis. laboratory and microbiology Laboratory Tests 07/23/24 05:36 07/22/24 03:40 Test 07/23/24 05:36 Range/Units Serum Glucose 84 74-106 mg/dL Microbiology Date/Time Source Procedure Growth Status 07/22/24 09:24 Blood Blood Culture - Preliminary NO GROWTH AFTER 24 HOURS OF INCUBATION. Resulted 07/21/24 08:35 Urine - [place] Urine Culture - Final Complete 07/21/24 02:20 Nose MRSA Screen - Final Complete Labs and/or images reviewed: Labs reviewed by me, Image(s) reviewed by me Problem List/Assessment/Plan Problem List/Assessment/Plan NSTEMI (non-ST elevated myocardial infarction), s/p PCIx1 H/o CABG Possible GI bleed, Atrial fibrillation with RVR, Possible pneumonia, Gram-positive versus Gram-negative versus atypical Acute hypoxic respiratory failure Possible Septic shock due to above H/o Hypertension Hypothyroidism, Acute on chronic systolic CHF Pacemaker H/o CVAx5 Hyperlipidemia Moderate anemia, normocytic normochromic Liver cirrhosis Thrombocytopenia, due to above Secondary coagulopathy Severe protein malnutrition Plan: Continue DAPT, Lipitor. held Lasix 40 mg IV q.d. amiodarone 200mg po qd Metoprolol 25mg po bid, hold if MAP <60 Pending blood culture, urine culture Continue Zosyn and doxycycline IV Duonebs prn COVID and flu negative Stool occult blood test pending Cardiology following, s/p C PCIx1. 2nd intervention to be performed next Friday. [employer] following, pending SOB, hepatitis panel Continue telemetry Gave 250 mL of NS bolus, and 100 mL of albumin 25%, patient responded to fluids PUD ppx: protonix Goals of care were discussed for over 30 minutes with patient's sister(PoA). Modified code, no intubation, no shock, no compressions. may do vasopressors and bipap Case was discussed with Dr. Mcconnell Plan discussed with: Patient, Other (RN) My Orders My Orders Orders - SUE BUCKNER Procedure Category Date Status Time Amiodarone Tablet PHA 07/24/24 In Process (Cordarone Tablet) 10:00 Dietary Evaluation Review Comments: 1. Continue Cardiac diet as tolerated 2. Add trial of Ensure Enlive daily to enhance nutritional status 3. Continue daily wt's to trend Expected Outcomes/Goals: Adequate nutrition, weight maintenance. Date of Service: Jul 23, 2024 Billing Provider: PIERRE MCCONNELL MD Common Visit Codes: [id number] INP/OBS CARE(HIGH) SUE BUCKNER RESIDENT Jul 23, 2024 14:50 PIERRE MCCONNELL MD Jul 23, 2024 20:32
--- NOTE | 2024-07-23 17:45 | DVHPN2 ---
Progress Note - Dictate Date Seen: Jul 23, 2024 Medical Necessity Reason Pt with a Central, PICC or Fol: No The following are medically ne: Gonzáles Catheter Subjective Patient was seen at bedside this morning There was no further episodes of coffee-ground emesis or upper GI bleed Patient had her was hypotensive with a low MAP pressure today Patient was noted to be in Trendelenburg position with Dr. Pereira supervising Patient was given a fluid bolus Patient is S/P cardiac catheterization with stent placement currently on Plavix and aspirin vital signs Vital Sign Date Time Temp Pulse Resp B/P (MAP) Pulse Ox O2 Delivery O2 Flow Rate FiO2 07/23/24 16:46 98.2 86 16 90/56 (67) 96 98.2 07/23/24 09:13 Nasal Cannula 2.0 07/23/24 09:13 28 Total Intake and Output 07/22/24 07/22/24 07/23/24 15:00 23:00 07:00 Intake Total 349.96 ml 100 ml 800 ml Output Total 1750 ml Balance 349.96 ml 100 ml -950 ml medications Current Medications Medications Dose Ordered Sig/Kenji Route Start Time Stop Time Status Last Admin Dose Admin Acetaminophen/ Hydrocodone Bitart 1 tab Q4HP PRN PO 07/20/24 11:45 Ondansetron HCl 4 mg Q4HP PRN IV 07/20/24 11:45 Acetaminophen 650 mg Q6HP PRN PO 07/20/24 11:45 Nitroglycerin 0.4 mg Q5MINP PRN SL 07/20/24 11:45 Morphine Sulfate 2 mg Q30M PRN IV 07/20/24 11:45 Atorvastatin Calcium 20 mg DAILY PO 07/21/24 10:00 07/23/24 11:47 20 MG Levothyroxine Sodium 50 mcg QAM PO 07/21/24 07:00 07/23/24 06:10 50 MCG Trazodone HCl 50 mg HS PO 07/20/24 22:00 07/22/24 22:21 50 MG Hydroxyzine HCl 10 mg HSPRN PRN PO 07/20/24 11:45 Ipratropium [place] 0.5 mg Q4HPRN PRN NEB 07/20/24 12:00 Albuterol 2.5 mg Q4HPRN PRN NEB 07/20/24 12:00 Doxycycline Hyclate 100 ml @ 50 mls/hr Q12H IV 07/21/24 08:00 07/23/24 11:47 50 MLS/HR Clopidogrel Bisulfate 75 mg DAILY PO 07/22/24 10:00 07/23/24 11:48 75 MG Aspirin 81 mg DAILY PO 07/22/24 10:00 07/23/24 11:47 81 MG Polyethylene Glycol 17 gm DAILYPRN PRN PO 07/22/24 08:45 07/23/24 11:56 17 GM Piperacillin Sod/ Tazobactam Sod 100 ml @ 25 mls/hr Q8HR IV 07/22/24 14:00 07/23/24 14:00 25 MLS/HR Metoprolol Tartrate 25 mg BID PO 07/22/24 22:00 Pantoprazole Sodium 40 mg BID IV 07/23/24 10:00 07/23/24 11:47 40 MG Amiodarone HCl 200 mg DAILY PO 07/24/24 10:00 Magnesium Oxide 400 mg BID PO 07/23/24 22:00 objective General: NAD, AAOX3 Chest: lung park clear to auscultation Heart: RRR, no murmur Abdomen: no tenderness to palpation, +BS laboratory and microbiology Laboratory Tests 07/23/24 05:36 07/22/24 03:40 Test 07/23/24 05:36 Range/Units Serum Glucose 84 74-106 mg/dL Problems(with codes): (1) NSTEMI (non-ST elevated myocardial infarction) (2) GIB (gastrointestinal bleeding) (3) Anemia (4) Atrial fibrillation and flutter (5) Generalized weakness Prognosis Plan Continue conservative care Protonix 40 mg IV q.12 hours Advance diet as tolerated Continue to monitor labs Prognosis remains guarded Dietary Evaluation Review Comments: 1. Continue Cardiac diet as tolerated 2. Add trial of Ensure Enlive daily to enhance nutritional status 3. Continue daily wt's to trend Expected Outcomes/Goals: Adequate nutrition, weight maintenance. Plan discussed with: Patient, Other (Dr Pereira) GABRIEL LÓPEZ MD Jul 23, 2024 17:45
[2024-07-23] MEDS: MAGNESIUM OXIDE 400 MG TAB PO SCH (22:42)
[2024-07-24] VITALS (20 sets, daily range): BP systolic 87–134; BP diastolic 45–85; PULSE 80–108; RESP 16–20; TEMP 97.3–98.6; O2SAT 94–100
[2024-07-24 05:52] LABS: Basophils # (auto) 0 10 ^3/uL (0-0.2); Basophils % (auto) 0.7 % (0.0-2.0); Eosinophils # (auto) 0.3 10 ^3/uL (0-0.8); Eosinophils % (auto) 4.4 % (0.0-7.0); Hematocrit 25.3 % (41.0-53.0); Hemoglobin 8.7 g/dL (13.5-17.5); Lymphocytes % (auto) 16.9 % (10.0-50.0); Mean Corpuscular Hemoglobin 30.7 pg (28.0-32.0); Mean Corpuscular Hgb Conc. 34.2 g/dL (32.0-36.0); Mean Corpuscular Volume 89.6 fL (80.0-100.0); Monocytes % (auto) 17.5 % (0.0-12.0); Neutrophils # (auto) 3.4 10 ^3/uL (1.6-8.6); Neutrophils % (auto) 60.5 % (37.0-80.0); Nucleated Red Blood Cells % 0.1 %; Platelet Count (auto) 86 10^3/uL (140-450); Red Blood Cells 2.82 10^6/uL (4.5-5.90); Red Cell Distribution Width 17.1 % (11.8-14.3); White Blood Cell 5.7 10^3/uL (4.4-10.8)
[2024-07-24 05:59] LABS: Anion Gap 5 (5-15); Chloride 103 mmol/L (98-107); Potassium 3.9 mmol/L (3.5-5.1); Sodium 139 mmol/L (136-145)
[2024-07-24 06:05] LABS: BUN/Creatinine Ratio 15.9 (10.0-20.0); Blood Urea Nitrogen 14 mg/dL (9-23); Glucose 101 mg/dL (74-106)
[2024-07-24 06:07] LABS: Calcium 8.6 mg/dL (8.7-10.4); Carbon Dioxide 31 mmol/L (20-31)
[2024-07-24] MEDS: AMIODARONE HCL 200 MG TAB PO SCH (08:36)
--- NOTE | 2024-07-24 11:14 | DVH ---
EXAM: XR Chest, 1 View CLINICAL INDICATION: sob TECHNIQUE: Frontal view of the chest. COMPARISON: XY CHEST PORTABLE on DOS: 07/22/24, XY CHEST PORTABLE on DOS: 07/20/24, XY CHEST PORTABLE o n DOS: 01/24/24, XY CHEST PORTABLE on DOS: 10/13/23, XY CHEST PORTABLE on DOS: 09/26/22 FINDINGS: LUNGS AND PLEURAL SPACES: Pulmonary congestion and edema. Pneumonia cannot be excluded. Left basil ar atelectasis or pneumonia. No pneumothorax. HEART: Unremarkable. No cardiomegaly. MEDIASTINUM: Unremarkable. Normal mediastinal contour. BONES/JOINTS: Unremarkable. No acute fracture. TUBES, LINES AND DEVICES: Left-sided cardiac pacemaker. OTHER FINDINGS: . .. IMPRESSION: 1. Pulmonary congestion and edema. Pneumonia cannot be excluded. 2. Left basilar atelectasis or pneumonia.
[2024-07-24] MEDS ORDERED: ALBUTEROL SULF 2.5 MG/0.5ML(0.5%) NEB SOLN NEB PRN (11:15)
[2024-07-24] MEDS ORDERED: IPRATROPIUM BROM 0.5 MG/2.5ML INH SOL NEB PRN (11:15)
--- NOTE | 2024-07-24 11:52 | DVHPNRES ---
Progress Note Date Seen: Jul 24, 2024 Resident Creating Document: SUE BUCKNER RESIDENT Medical Necessity Reason Pt with a Central, PICC or Fol: No The following are medically ne: Gonzáles Catheter Subjective Review of Systems On my initial assessment, patient was seen and examined at bedside. Currently states feeling well, denies any significant shortness of breath, chest pain, abdominal pain, dysuria, nausea, vomiting, diarrhea, constipation, dizziness, lightheadedness. Currently tolerating diet. He only complains of generalized weakness. Blood pressure mildly improved, MAP 63-68 Transfer summary: This is a 73-year-old male who was transferred from [facility] for NSTEMI. Patient went to [facility] for generalized weakness, found to have elevated troponin and possible GI bleed, so he was transferred here for higher level of care for NSTEMI. PMH: AFIB, CHF, HTN, hyperipidemia, pacemaker, CVA (x 5), Hypothyroidism Past Surgical History: CABG, Other (Pacemaker, right leg surgery) SH: Smoke: No. ALCOHOL: none. Drugs: None. Lives: with Family Patient was found to be in atrial fibrillation with RVR, and hypotensive. Cardiology was consulted, IV fluids, and IV amiodarone, were given. Patient remained hypotensive, Levophed was started. On my initial assessment, patient was seen and examined at bedside. Currently states feeling well, denies any significant shortness of breath, chest pain, abdominal pain, dysuria, nausea, vomiting, diarrhea, constipation, dizziness, lightheadedness. Currently tolerating diet. Patient had an EKG, no acute ST-T changes were seen. Patient's troponins were elevated. Cardiology performed a left heart catheterization today, a stent was placed as well. Communications Agent also assess the patient due to possible GI bleed, no current active signs of bleeding, hemoglobin is currently at 10.7. Patient only complain of generalized weakness, denies any significant chest pain, abdominal pain, nausea, vomiting, diarrhea, constipation. Patient's blood pressure initially improved, he was off Levophed, he was sent to telemetry, patient was started on IV antibiotics and Lasix due to pneumonia and CHF. However patient later started having lower blood pressure again, he does have a history of low ejection fraction less than 25% and liver cirrhosis, patient was also experiencing AFib with RVR, was initially on amiodarone drip, digoxin was also given, then we transition amiodarone in p.o. on he was placed on metoprolol 25 mg p.o. b.i.d., patient's heart rate improved however patient's blood pressure started to go down as well, considering patient's liver cirrhosis, patient was given IV albumin, he did respond to 100 mL 25% albumin. Patient has been tolerating diet, however he does have a weak cough and has had trouble swallowing thin fluids, he was placed in a puree diet and we will order swallow evaluation. We had a comprehensive discussion with the patient's sister, she is the power of workers compensation defense attorney, she brought paperwork to confirm that the patient is do not intubate and do not resuscitate, vasopressors may be used. So the patient remains in chemical code. The patient is only complaining of generalized weakness, without continue the metoprolol and restarted Lasix. Patient's current chest x-ray demonstrates pulmonary congestion and possible pneumonia, we will also continue IV antibiotics. Patient will undergo a 2nd intubation by his interactive digital media specialist on Friday for possible stent placement in the circumflex artery, RCA is also occluded. Objective vital signs Vital Sign Date Time Temp Pulse Resp B/P (MAP) Pulse Ox O2 Delivery O2 Flow Rate FiO2 07/24/24 10:06 95 Nasal Cannula* 2 28 07/24/24 09:47 105 87/56 (66) 07/24/24 08:31 98.4 18 98.4 Total Intake and Output 07/23/24 07/23/24 07/24/24 15:00 23:00 07:00 Intake Total 900 ml 300 ml Output Total 850 ml 1000 ml Balance 50 ml -700 ml medications Current Medications Medications Dose Ordered Sig/Kenji Route Start Time Stop Time Status Last Admin Dose Admin Acetaminophen/ Hydrocodone Bitart 1 tab Q4HP PRN PO 07/20/24 11:45 Ondansetron HCl 4 mg Q4HP PRN IV 07/20/24 11:45 Acetaminophen 650 mg Q6HP PRN PO 07/20/24 11:45 Nitroglycerin 0.4 mg Q5MINP PRN SL 07/20/24 11:45 Morphine Sulfate 2 mg Q30M PRN IV 07/20/24 11:45 Atorvastatin Calcium 20 mg DAILY PO 07/21/24 10:00 07/24/24 08:36 20 MG Levothyroxine Sodium 50 mcg QAM PO 07/21/24 07:00 07/24/24 06:03 50 MCG Trazodone HCl 50 mg HS PO 07/20/24 22:00 07/22/24 22:21 50 MG Hydroxyzine HCl 10 mg HSPRN PRN PO 07/20/24 11:45 Doxycycline Hyclate 100 ml @ 50 mls/hr Q12H IV 07/21/24 08:00 07/24/24 09:49 50 MLS/HR Clopidogrel Bisulfate 75 mg DAILY PO 07/22/24 10:00 07/24/24 09:50 75 MG Aspirin 81 mg DAILY PO 07/22/24 10:00 07/24/24 09:51 81 MG Polyethylene Glycol 17 gm DAILYPRN PRN PO 07/22/24 08:45 07/23/24 11:56 17 GM Piperacillin Sod/ Tazobactam Sod 100 ml @ 25 mls/hr Q8HR IV 07/22/24 14:00 07/24/24 06:04 25 MLS/HR Metoprolol Tartrate 25 mg BID PO 07/22/24 22:00 Pantoprazole Sodium 40 mg BID IV 07/23/24 10:00 07/24/24 08:38 40 MG Amiodarone HCl 200 mg DAILY PO 07/24/24 10:00 07/24/24 08:36 200 MG Magnesium Oxide 400 mg BID PO 07/23/24 22:00 07/24/24 08:37 400 MG Albuterol 2.5 mg Q6HWA [facility] 07/24/24 12:00 Ipratropium [place] 0.5 mg Q6HWA [facility] 07/24/24 12:00 Furosemide 40 mg DAILY IV 07/25/24 10:00 Albuterol 2.5 mg Q8HPRN PRN NEB 07/24/24 11:15 Ipratropium [place] 0.5 mg Q8HPRN PRN NEB 07/24/24 11:15 Examination Physical examination as below: General: Awake, alert, comfortable appearing, in no acute distress. HEENT: Head is normocephalic and atraumatic. Pupils are equal, round, and reactive to light. Extraocular muscles are intact. No nasal discharge. No facial trauma. Intraoral exam shows moist mucous membranes with no tonsillar enlargement or exudate. Neck: Supple with no cervical lymphadenopathy. Heart: Regular rate without murmur, rub, or gallop. Lungs: Equal breath sounds bilaterally with no wheezing, rales, or rhonchi. There is no chest wall tenderness or instability. Abdomen: No external sign of injury. Bowel sounds are present. Abdomen is soft, nontender. No rebound, no guarding, no rigidity. There are no palpable masses. There is no flank pain on exam. Extremities: Strong peripheral pulses. There is no clubbing, no cyanosis, and no edema. Skin: No rash. Neurologic: Cranial nerves II-XII intact without motor, sensory, or cerebellar deficit, no asterixis. laboratory and microbiology Laboratory Tests 07/24/24 04:12 Test 07/24/24 04:12 Range/Units Serum Glucose 101 74-106 mg/dL Microbiology Date/Time Source Procedure Growth Status 07/22/24 09:24 Blood Blood Culture - Preliminary NO GROWTH AFTER 48 HOURS OF INCUBATION. Resulted 07/21/24 08:35 Urine - [place] Urine Culture - Final Complete 07/21/24 02:20 Nose MRSA Screen - Final Complete Labs and/or images reviewed: Labs reviewed by me, Image(s) reviewed by me Problem List/Assessment/Plan Problem List/Assessment/Plan NSTEMI (non-ST elevated myocardial infarction), s/p PCIx1 H/o CABG Possible GI bleed, Atrial fibrillation with RVR, Possible pneumonia, Gram-positive versus Gram-negative versus atypical Acute hypoxic respiratory failure Possible Septic shock due to above, improved H/o Hypertension Hypothyroidism, Acute on chronic systolic CHF Pacemaker H/o CVAx5 Hyperlipidemia Moderate anemia, normocytic normochromic Liver cirrhosis Thrombocytopenia, due to above Secondary coagulopathy Severe protein malnutrition Plan: Continue DAPT, Lipitor. Lasix 40 mg IV q.d. amiodarone 200mg po qd Metoprolol 25mg po bid, hold if MAP <60 Pending blood culture, urine culture Continue Zosyn and doxycycline IV Duonebs prn COVID and flu negative Stool occult blood test pending Cardiology following, s/p LHC PCIx1. 2nd intervention to be performed next Friday. Communications Agent following, pending SOB, hepatitis panel Continue telemetry PUD ppx: protonix Goals of care were discussed for over 30 minutes with patient's sister (Ramesh). Modified code, no intubation, no shock, no compressions. may do vasopressors and bipap Case was discussed with Dr. Mcconnell Plan discussed with: Patient, Other (RN) My Orders My Orders Orders - SUE BUCKNER RESIDENT Procedure Category Date Status Time Magnesium Oxide PHA 07/23/24 In Process Tablet (Mag-Ox Tablet) 22:00 Chest Portable XY 07/24/24 Resulted 04:00 Code Status CODE 07/23/24 Transmitted 17:04 Communication Order ORDERS 07/23/24 Transmitted 17:56 Pureed DIET 07/24/24 Transmitted Lunch Refer To Speech CAREN 07/24/24 In Process Therapy 10:44 Albuterol Medneb PHA 07/24/24 In Process (Ventolin Medneb) 12:00 Ipratropium Medneb PHA 07/24/24 In Process (Atrovent Medneb) 12:00 Furosemide Injection PHA 07/25/24 In Process (Lasix Injection) 10:00 Albuterol Medneb PHA 07/24/24 In Process (Ventolin Medneb) 11:15 Ipratropium Medneb PHA 07/24/24 In Process (Atrovent Medneb) 11:15 Cont Med Neb Intial Tx RT 07/24/24 Logged 11:09 Complete Blood Count LAB 07/25/24 Verified 04:00 Comprehensive LAB 07/25/24 Verified Metabolic Panel 04:00 Magnesium LAB 07/25/24 Verified 04:00 Dietary Evaluation Review Comments: 1. Continue Cardiac diet as tolerated 2. Add trial of Ensure Enlive daily to enhance nutritional status 3. Continue daily wt's to trend Expected Outcomes/Goals: Adequate nutrition, weight maintenance. Date of Service: Jul 24, 2024 Billing Provider: PIERRE MCCONNELL MD Common Visit Codes: [id number] INP/OBS CARE(HIGH) SUE BUCKNER RESIDENT Jul 24, 2024 11:52 PIERRE MCCONNELL MD Jul 24, 2024 23:15
[2024-07-24] MEDS: FUROSEMIDE 20 MG/2 ML VIAL IV ONE (12:01)
[2024-07-24] MEDS: LACTULOSE 20Gm/30ML SOLN PO ONE (12:02)
[2024-07-24] MEDS: IPRATROPIUM BROM 0.5 MG/2.5ML INH SOL NEB SCH (12:16)
[2024-07-24] MEDS: ALBUTEROL SULF 2.5 MG/0.5ML(0.5%) NEB SOLN NEB SCH (12:16)
[2024-07-24] MEDS: METOPROLOL TARTRATE 25 MG TAB PO SCH (13:49)
[2024-07-24 16:58] LABS: Benzodiazephine Screen, Urine Neg (NEGATIVE)
[2024-07-24 17:01] LABS: Amphetamine Screen, Urine Neg (NEGATIVE); Barbiturate Scree,Urine Neg (NEGATIVE); Cocaine Screen, Urine Neg (NEGATIVE)
[2024-07-24 17:02] LABS: Cannabinoid Screen, Urine Neg (NEGATIVE); Opiate Scree,Urine Neg (NEGATIVE); Phencyclidine Screen, Urine Neg (NEGATIVE)
[2024-07-25] VITALS (22 sets, daily range): BP systolic 72–120; BP diastolic 36–59; PULSE 70–117; RESP 14–20; TEMP 97.1–100.5; O2SAT 93–100
[2024-07-25] MEDS: SODIUM CHLORIDE 0.9% 500 ML IV ONE (00:45)
[2024-07-25 05:47] LABS: Basophils # (auto) 0 10 ^3/uL (0-0.2); Basophils % (auto) 0.7 % (0.0-2.0); Eosinophils # (auto) 0.3 10 ^3/uL (0-0.8); Eosinophils % (auto) 5.3 % (0.0-7.0); Hematocrit 25.6 % (41.0-53.0); Hemoglobin 8.7 g/dL (13.5-17.5); Lymphocytes % (auto) 18.5 % (10.0-50.0); Mean Corpuscular Hemoglobin 30.7 pg (28.0-32.0); Mean Corpuscular Hgb Conc. 33.9 g/dL (32.0-36.0); Mean Corpuscular Volume 90.4 fL (80.0-100.0); Monocytes # (auto) 0.8 10 ^3/uL (0-1.3); Monocytes % (auto) 14.7 % (0.0-12.0); Neutrophils # (auto) 3.3 10 ^3/uL (1.6-8.6); Neutrophils % (auto) 60.8 % (37.0-80.0); Platelet Count (auto) 88 10^3/uL (140-450); Red Blood Cells 2.83 10^6/uL (4.5-5.90); Red Cell Distribution Width 17.2 % (11.8-14.3); White Blood Cell 5.4 10^3/uL (4.4-10.8)
[2024-07-25 05:59] LABS: Alanine Aminotransferase 22 U/L (7-40); Albumin 2.4 g/dL (3.2-4.8); Alkaline Phosphatase 88 U/L (46-116); Anion Gap 8 (5-15); Aspartate Aminotransferase 38 U/L (13-40); BUN/Creatinine Ratio 13.3 (10.0-20.0); Bilirubin, Total 1.3 mg/dL (0.2-1.0); Blood Urea Nitrogen 10 mg/dL (9-23); Calcium 8.3 mg/dL (8.7-10.4); Carbon Dioxide 29 mmol/L (20-31); Chloride 102 mmol/L (98-107); Glucose 84 mg/dL (74-106); Magnesium 2.1 mg/dL (1.6-2.6); Sodium 139 mmol/L (136-145); Total Protein 5.3 g/dL (5.7-8.2)
[2024-07-25] MEDS: FUROSEMIDE 40 MG/4 ML VIAL IV SCH (09:51)
[2024-07-25] MEDS: LACTULOSE 20Gm/30ML SOLN PO SCH (10:35)
--- NOTE | 2024-07-25 13:09 | DVHPNRES ---
Progress Note Date Seen: Jul 25, 2024 Resident Creating Document: NOAH SINGH RESIDENT Has the PT tested + for MRSA If YES, has PT been informed?: No Medical Necessity Reason Pt with a Central, PICC or Fol: No The following are medically ne: Gonzáles Catheter Subjective Review of Systems This is a 73-year-old male with past medical history of congestive heart failure, atrial fibrillation, hypertension, hyperlipidemia, pacemaker, coronary artery disease with three graft, CVA (X five), hypothyroidism, the patient was transferred from [facility] due to NSTEMI and generalized weakness. At that time the patient was found to have elevated troponins and possible GI bleed reason why he was transferred to our hospital. Upon admission, the patient was initially found to be in AFib with RVR, hypotensive reason why Cardiology was consulted and patient was started on amiodarone drip. The patient received left heart catheterization on 07/24/2024 were once stent was placed in the saphenous vein graft to the PDA with thrombectomy of ostial segment. Last echocardiogram showed an LVEF of 25% and BNP was 729.36. Patient is currently on amiodarone p.o. b.i.d. after left heart catheterization on 07/24/2024, finished cigar maker determine that there is a need of a further left heart catheterization on Friday for further intervention of the left main, 90 circumflex and LAD is also occluded. Patient seen and examined at bedside. Patient still feels generalized weakness but is alert and oriented X3 and following commands. Blood pressure has been running in the lower side, last blood pressure was 101/53 mmHg. We will continue amiodarone 200 mg daily and we will decrease metoprolol tartrate from 25 mg b.i.d. to 12.5 mg b.i.d. last chest x-ray was showing patchy opacification of the right middle lobe which could be due to bacterial pneumonia reason why we will continue IV Zosyn at this time. We will also continue aspirin 81 mg daily, clopidogrel 75 mg daily, atorvastatin 20 mg daily and levothyroxine 50 mcg daily. We will monitor blood pressure closely since LVEF is 25% and heart is very weak. Final plan is to do a left heart coronary angiogram on Friday. ROS Constitutional: Reports generalized weakness and fatigue. Denies weight loss, fever and chills. HEENT: Denies changes in vision and hearing. Respiratory: Denies shortness of breath and cough Cardiovascular: Denies chest discomfort or palpitations GI: Denies abdominal pain, nausea, vomiting and diarrhea. : Denies dysuria and urinary frequency. Musculoskeletal: Denies myalgias and joint pain Skin: Denies rash and pruritus. Neurological: Denies dizziness, headache, vision or hearing problems Objective vital signs Vital Sign Date Time Temp Pulse Resp B/P (MAP) Pulse Ox O2 Delivery O2 Flow Rate FiO2 07/25/24 12:00 89 101/53 07/25/24 11:17 16 100 07/25/24 11:11 Nasal Cannula* 2 28 07/25/24 09:00 98.4 98.4 Total Intake and Output 07/24/24 07/24/24 07/25/24 15:00 23:00 07:00 Intake Total 200 ml 400 ml 1050 ml Output Total 1250 ml 750 ml Balance 200 ml -850 ml 300 ml medications Current Medications Medications Dose Ordered Sig/Kenji Route Start Time Stop Time Status Last Admin Dose Admin Acetaminophen/ Hydrocodone Bitart 1 tab Q4HP PRN PO 07/20/24 11:45 Ondansetron HCl 4 mg Q4HP PRN IV 07/20/24 11:45 Acetaminophen 650 mg Q6HP PRN PO 07/20/24 11:45 Nitroglycerin 0.4 mg Q5MINP PRN SL 07/20/24 11:45 Morphine Sulfate 2 mg Q30M PRN IV 07/20/24 11:45 Atorvastatin Calcium 20 mg DAILY PO 07/21/24 10:00 07/25/24 09:53 20 MG Levothyroxine Sodium 50 mcg QAM PO 07/21/24 07:00 07/25/24 06:03 50 MCG Trazodone HCl 50 mg HS PO 07/20/24 22:00 07/24/24 21:37 50 MG Hydroxyzine HCl 10 mg HSPRN PRN PO 07/20/24 11:45 Doxycycline Hyclate 100 ml @ 50 mls/hr Q12H IV 07/21/24 08:00 07/25/24 10:34 50 MLS/HR Clopidogrel Bisulfate 75 mg DAILY PO 07/22/24 10:00 07/25/24 09:53 75 MG Aspirin 81 mg DAILY PO 07/22/24 10:00 07/25/24 09:54 81 MG Polyethylene Glycol 17 gm DAILYPRN PRN PO 07/22/24 08:45 07/23/24 11:56 17 GM Piperacillin Sod/ Tazobactam Sod 100 ml @ 25 mls/hr Q8HR IV 07/22/24 14:00 07/25/24 06:03 25 MLS/HR Pantoprazole Sodium 40 mg BID IV 07/23/24 10:00 07/25/24 09:45 40 MG Amiodarone HCl 200 mg DAILY PO 07/24/24 10:00 07/25/24 09:53 200 MG Magnesium Oxide 400 mg BID PO 07/23/24 22:00 07/25/24 09:52 400 MG Albuterol 2.5 mg Q6HWA [facility] 07/24/24 12:00 07/25/24 11:11 2.5 MG Ipratropium [place] 0.5 mg Q6HWA NEB 07/24/24 12:00 07/25/24 11:11 0.5 MG Furosemide 40 mg DAILY IV 07/25/24 10:00 Albuterol 2.5 mg Q8HPRN PRN NEB 07/24/24 11:15 Ipratropium [place] 0.5 mg Q8HPRN PRN NEB 07/24/24 11:15 Metoprolol Tartrate 25 mg Q12H PO 07/24/24 00:00 Artificial Tears 1 drop Q2HP PRN EACHEYE 07/24/24 15:30 Lactulose 30 ml DAILY PO 07/25/24 10:00 07/25/24 10:35 30 ML Examination Physical Examination General: Patient alert and oriented in person, place and time. Patient is currently complaining of generalized weakness and fatigue. Patient following commands. HEENT: Normocephalic, atraumatic, moist mucous membranes Respiratory/pulmonary: There are mild bilateral lung crackles especially in the lung bases. Patient is currently on 2 L of oxygen through nasal cannula. No wheezes at this time. Cardiovascular: Normal heart sounds S1 and S2 with no associated murmurs Abdomen: Abdomen nondistended, there is no pain to palpation in any of the abdominal quadrants, no palpable masses. Extremities: There is no peripheral edema present at the lower extremities. Peripheral Pulses: 3+ Radial (R). 3+ Radial (L). 3+ Dorsalis pedis (R). 3+ Dorsalis pedis(L) Skin: No rashes or pruritus, there is no sacral edema present at this time. Neurological: Intact cranial nerves with no focal neurologic deficits laboratory and microbiology Laboratory Tests 07/25/24 05:02 Test 07/25/24 05:02 Range/Units Serum Glucose 84 74-106 mg/dL Microbiology Date/Time Source Procedure Growth Status 07/22/24 09:24 Blood Blood Culture - Preliminary NO GROWTH AFTER 72 HOURS OF INCUBATION. Resulted 07/21/24 08:35 Urine - [place] Urine Culture - Final Complete 07/21/24 02:20 Nose MRSA Screen - Final Complete Problem List/Assessment/Plan Problem List/Assessment/Plan Assessment/Plan Acute chest pain likely due to ACS NSTEMI likely type II -S/P stent placement to the saphenous vein graft to the PDA with thrombectomy of ostial segment on 07/24/2024 -continue aspirin 81 mg daily -continue clopidogrel 75 mg daily -continue atorvastatin 20 mg daily -patient is due for coronary angiogram this upcoming Friday for further intervention of the left main, [place] circumflex and LAD. -no chest pain at this point -monitor blood pressure closely Atrial fibrillation with RVR -currently on AFib with rate control -continue amiodarone 200 mg daily -decrease metoprolol from 25mg BID to 12.5 mg b.i.d. -monitor blood pressure Acute respiratory failure likely due to Gram-positive/Gram-negative bacterial pneumonia -chest x-ray was showing patchy opacification of the right middle lobe which could be consistent with possible pneumonia -continue IV Zosyn which was started on 07/22/2024 and IV doxycycline -Covid and flu both came back negative -currently on 2 L of oxygen through nasal cannula Possible septic shock due to bacterial pneumonia Possible cardiogenic shock due to low LVEF and CAD -continue on IV antibiotics as above -maintain rate control and blood pressure are normal range Hypotension due to above -hold metoprolol tartrate if map less than 60 -continue amiodarone for AFib with RVR -monitor blood pressure closely. We will consider albumin if blood pressure decreases. Hypothyroidism -TSH 3.92 -Order FT4 -Continue levothyroxine 50 mcg q.a.m. as of now Moderate normocytic normochromic anemia, R/O possible GI bleed -no evidence of active bleeding at this time -Stool occult test came back positive -GI on board, Continue pantoprazole 40 mg IV b.i.d. -ferrous sulfate 325 mg daily History of pacemaker, CVAx5, hyperlipidemia -continue on aspirin 81 mg daily, clopidogrel 75 mg daily and atorvastatin 20 mg daily History of liver cirrhosis and thrombocytopenia -monitor liver enzymes and platelets Severe protein malnutrition -Currently on puree diet -Urban Designer consulted and swallow eval to determine progression to cardiac diet Goals of care discussed with the patient at bedside for >25min, Chemical code Plan discussed with Dr. Mcconnell Plan discussed with: Patient My Orders My Orders Orders - NOAH SINGH Procedure Category Date Status Time Lactulose Oral PHA 07/25/24 In Process 10:00 Dietary Evaluation Review Recommendations by RD: Protein Supplementation Comments: 1) Agree with previous RD recommendation - Initiate Ensure Enlive bid 2) Initiate Pro-Stat @ 30 mL qd 3) Initiate vitamin C @ 500 mg bid 4) Advance to hepatic diet when medically feasible, pending RADIOLOGIST approval 4) Follow-up with hepatology, cardiology and gastroenterology Expected Outcomes/Goals: 1) appetite and labs to advance 2) wound to improve 3) diet to advance 4) f/u in 2-3 days Date of Service: Jul 25, 2024 Billing Provider: PIERRE MCCONNELL MD Common Visit Codes: [id number] INP/OBS CARE(HIGH) NOAH SINGH RESIDENT Jul 25, 2024 13:08 PIERRE MCCONNELL MD Jul 25, 2024 22:44
--- NOTE | 2024-07-25 17:06 | DVH ---
LEFT Upper Extremity Venous Duplex Clinical History: R/O DVT Comparison: None Technique: Duplex Doppler evaluation of the venous system of the LEFT lower neck and upper extremity including c olor Doppler and spectral/pulsed waveform analysis was performed. Findings: The internal jugular vein demonstrates appropriate compressibility and waveform variability. The subclavian vein is patent on color Doppler evaluation without intraluminal thrombus and demonstra francie waveform variability. The visualized portion of the brachiocephalic vein is patent on color Doppler evaluation without intr aluminal thrombus and demonstrates waveform variability. The axillary vein demonstrates appropriate compressibility and waveform variability. The brachial veins demonstrate appropriate compressibility and patency on Doppler evaluation. The basilic vein demonstrates appropriate compressibility and patency on Doppler evaluation. The cephalic vein demonstrates NO FLOW AND NO COMPRESSIBILITY Impression: 1. No DEEP venous thrombus identified in the LEFT upper extremity vessels evaluated above. 2. There is no flow or compressibility of the left cephalic vein. 3. If clinical concern/symptoms persist or worsen, short-interval follow-up study is suggested.
[2024-07-25] MEDS: ARTIFICIAL TEARS 15ml EACHEYE PRN (21:44)
[2024-07-25] MEDS: DOCUSATE SOD 100 MG CAP PO SCH (21:48)
[2024-07-25] MEDS: ACETAMINOPHEN 325 MG TAB PO PRN (23:09)
[2024-07-26] VITALS (14 sets, daily range): BP systolic 96–129; BP diastolic 47–70; PULSE 75–136; RESP 12–20; TEMP 98.1–99.4; O2SAT 90–100
[2024-07-26 06:53] LABS: Basophils # (auto) 0 10 ^3/uL (0-0.2); Basophils % (auto) 0.6 % (0.0-2.0); Eosinophils # (auto) 0.2 10 ^3/uL (0-0.8); Eosinophils % (auto) 4.1 % (0.0-7.0); Hematocrit 24.7 % (41.0-53.0); Hemoglobin 8.5 g/dL (13.5-17.5); Lymphocytes # (auto) 1.1 10 ^3/uL (0.4-5.4); Mean Corpuscular Hemoglobin 30.8 pg (28.0-32.0); Mean Corpuscular Hgb Conc. 34.4 g/dL (32.0-36.0); Mean Corpuscular Volume 89.4 fL (80.0-100.0); Monocytes # (auto) 0.7 10 ^3/uL (0-1.3); Monocytes % (auto) 12.6 % (0.0-12.0); Neutrophils # (auto) 3.4 10 ^3/uL (1.6-8.6); Neutrophils % (auto) 61.7 % (37.0-80.0); Platelet Count (auto) 96 10^3/uL (140-450); Red Blood Cells 2.77 10^6/uL (4.5-5.90); Red Cell Distribution Width 17.5 % (11.8-14.3); White Blood Cell 5.4 10^3/uL (4.4-10.8)
[2024-07-26 07:20] LABS: Alanine Aminotransferase 21 U/L (7-40); Alkaline Phosphatase 90 U/L (46-116); Anion Gap 7 (5-15); Aspartate Aminotransferase 32 U/L (13-40); BUN/Creatinine Ratio 17.3 (10.0-20.0); Blood Urea Nitrogen 13 mg/dL (9-23); Carbon Dioxide 31 mmol/L (20-31); Chloride 103 mmol/L (98-107); Glucose 87 mg/dL (74-106); Magnesium 2.1 mg/dL (1.6-2.6); Potassium 3.9 mmol/L (3.5-5.1); Sodium 141 mmol/L (136-145)
[2024-07-26 07:22] LABS: Albumin 2.4 g/dL (3.2-4.8); Bilirubin, Total 1.3 mg/dL (0.2-1.0); Calcium 8.2 mg/dL (8.7-10.4); Total Protein 5.3 g/dL (5.7-8.2)
[2024-07-26] MEDS: METOPROLOL TARTRATE 25 MG TAB PO SCH (08:30)
[2024-07-26] MEDS: FERROUS SULFATE 325mg EC TAB PO SCH (10:00)
--- NOTE | 2024-07-26 11:30 | DVHPNRES ---
Progress Note Date Seen: Jul 26, 2024 Resident Creating Document: NOAH SINGH RESIDENT Has the PT tested + for MRSA If YES, has PT been informed?: No Medical Necessity Reason Pt with a Central, PICC or Fol: No The following are medically ne: Gonzáles Catheter Subjective Review of Systems This is a 73-year-old male with past medical history of congestive heart failure, atrial fibrillation, hypertension, hyperlipidemia, pacemaker, coronary artery disease with three graft, CVA (X five), hypothyroidism, the patient was transferred from [facility] due to NSTEMI and generalized weakness. At that time the patient was found to have elevated troponins and possible GI bleed reason why he was transferred to our hospital. Upon admission, the patient was initially found to be in AFib with RVR, hypotensive reason why Cardiology was consulted and patient was started on amiodarone drip. The patient received left heart catheterization on 07/24/2024 were once stent was placed in the saphenous vein graft to the PDA with thrombectomy of ostial segment. Last echocardiogram showed an LVEF of 25% and BNP was 729.36. Patient is currently on amiodarone p.o. b.i.d. after left heart catheterization on 07/24/2024, billboard erector helper determine that there is a need of a further left heart catheterization on Friday for further intervention of the left main, 90 circumflex and LAD is also occluded. Patient seen and examined at bedside. Patient states that he is feeling well overall. The patient denies chest pain, shortness of breath, palpitations, fever/chills or any other symptoms at this time. Dose on metoprolol tartrate was reduced to 12.5 mg b.i.d. and was administered this morning without complications. Blood pressure still in the lower side but tolerating metoprolol and amiodarone dose. We will continue current medical management and wait for tomorrow coronary angiogram in the morning with Dr. Huerta. We will keep the patient NPO after midnight. Objective vital signs Vital Sign Date Time Temp Pulse Resp B/P (MAP) Pulse Ox O2 Delivery O2 Flow Rate FiO2 07/26/24 10:00 102/52 07/26/24 09:30 104 07/26/24 08:51 98.2 17 98 98.2 07/25/24 20:00 Nasal Cannula* 2 28 Total Intake and Output 07/25/24 07/25/24 07/26/24 15:00 23:00 07:00 Intake Total 200 ml 600 ml 800 ml Output Total 1250 ml 550 ml Balance 200 ml -650 ml 250 ml medications Current Medications Medications Dose Ordered Sig/Kenji Route Start Time Stop Time Status Last Admin Dose Admin Acetaminophen/ Hydrocodone Bitart 1 tab Q4HP PRN PO 07/20/24 11:45 Ondansetron HCl 4 mg Q4HP PRN IV 07/20/24 11:45 Acetaminophen 650 mg Q6HP PRN PO 07/20/24 11:45 07/25/24 23:09 650 MG Nitroglycerin 0.4 mg Q5MINP PRN SL 07/20/24 11:45 Morphine Sulfate 2 mg Q30M PRN IV 07/20/24 11:45 Atorvastatin Calcium 20 mg DAILY PO 07/21/24 10:00 07/26/24 10:10 20 MG Levothyroxine Sodium 50 mcg QAM PO 07/21/24 07:00 07/26/24 07:40 50 MCG Trazodone HCl 50 mg HS PO 07/20/24 22:00 07/25/24 21:24 50 MG Hydroxyzine HCl 10 mg HSPRN PRN PO 07/20/24 11:45 Doxycycline Hyclate 100 ml @ 50 mls/hr Q12H IV 07/21/24 08:00 07/26/24 10:05 50 MLS/HR Clopidogrel Bisulfate 75 mg DAILY PO 07/22/24 10:00 07/26/24 10:15 75 MG Aspirin 81 mg DAILY PO 07/22/24 10:00 07/26/24 10:14 81 MG Polyethylene Glycol 17 gm DAILYPRN PRN PO 07/22/24 08:45 07/23/24 11:56 17 GM Piperacillin Sod/ Tazobactam Sod 100 ml @ 25 mls/hr Q8HR IV 07/22/24 14:00 07/26/24 05:11 25 MLS/HR Pantoprazole Sodium 40 mg BID IV 07/23/24 10:00 07/26/24 10:01 40 MG Amiodarone HCl 200 mg DAILY PO 07/24/24 10:00 07/26/24 10:11 200 MG Magnesium Oxide 400 mg BID PO 07/23/24 22:00 4/7/25 10:10 400 MG Albuterol 2.5 mg Q6HWA NEB 07/24/24 12:00 07/26/24 09:08 2.5 MG Ipratropium [place] 0.5 mg Q6HWA NEB 07/24/24 12:00 07/26/24 09:08 0.5 MG Furosemide 40 mg DAILY IV 07/25/24 10:00 Albuterol 2.5 mg Q8HPRN PRN NEB 07/24/24 11:15 Ipratropium [place] 0.5 mg Q8HPRN PRN NEB 07/24/24 11:15 Artificial Tears 1 drop Q2HP PRN EACHEYE 07/24/24 15:30 07/25/24 21:44 1 DROP Lactulose 30 ml DAILY PO 07/25/24 10:00 07/25/24 10:35 30 ML Metoprolol Tartrate 12.5 mg Q12H PO 07/26/24 10:00 07/26/24 08:30 12.5 MG Ferrous Sulfate 325 mg DAILY PO 07/26/24 10:00 Docusate Sodium 100 mg BID PO 07/25/24 22:00 07/25/24 21:48 100 MG Examination Physical Examination General: Patient alert and oriented in person, place and time. Patient is currently complaining of generalized weakness and fatigue. Patient following commands. HEENT: Normocephalic, atraumatic, moist mucous membranes Respiratory/pulmonary: There are mild bilateral lung crackles especially in the lung bases. Patient is currently on 2 L of oxygen through nasal cannula. No wheezes at this time. Cardiovascular: Normal heart sounds S1 and S2 with no associated murmurs Abdomen: Abdomen nondistended, there is no pain to palpation in any of the abdominal quadrants, no palpable masses. Extremities: There is no peripheral edema present at the lower extremities. Peripheral Pulses: 3+ Radial (R). 3+ Radial (L). 3+ Dorsalis pedis (R). 3+ Dorsalis pedis(L) Skin: No rashes or pruritus, there is no sacral edema present at this time. Neurological: Intact cranial nerves with no focal neurologic deficits laboratory and microbiology Laboratory Tests 07/26/24 06:18 Test 07/26/24 06:18 Range/Units Serum Glucose 87 74-106 mg/dL Microbiology Date/Time Source Procedure Growth Status 07/22/24 09:24 Blood Blood Culture - Preliminary NO GROWTH AFTER 72 HOURS OF INCUBATION. Resulted 07/21/24 08:35 Urine - Gonz[place]les [place] Urine Culture - Final Complete 07/21/24 02:20 Nose MRSA Screen - Final Complete Problem List/Assessment/Plan Problem List/Assessment/Plan Assessment/Plan Acute chest pain likely due to ACS NSTEMI likely type II -S/P stent placement to the saphenous vein graft to the PDA with thrombectomy of ostial segment on 07/24/2024 -continue aspirin 81 mg daily -continue clopidogrel 75 mg daily -continue atorvastatin 20 mg daily -patient is due for coronary angiogram tomorrow on 07/27/24 for further intervention of the left main, [place] circumflex and LAD. -no chest pain at this point -monitor blood pressure closely Atrial fibrillation with RVR -currently on AFib with rate control -continue amiodarone 200 mg daily -Continue metoprolol tartrate 12.5mg BID -monitor blood pressure Acute respiratory failure likely due to Gram-positive/Gram-negative bacterial pneumonia -chest x-ray was showing patchy opacification of the right middle lobe which could be consistent with possible pneumonia -continue IV Zosyn which was started on 07/22/2024 and IV doxycycline -Covid and flu both came back negative -currently on 2 L of oxygen through nasal cannula Possible septic shock due to bacterial pneumonia Possible cardiogenic shock due to low LVEF and CAD -continue on IV antibiotics as above -maintain rate control and blood pressure are normal range Hypotension due to above -hold metoprolol tartrate if map less than 60 -continue amiodarone for AFib with RVR -monitor blood pressure closely. We will consider albumin if blood pressure decreases. Hypothyroidism -TSH 3.92 -Order FT4 -Continue levothyroxine 50 mcg q.a.m. as of now Moderate normocytic normochromic anemia, R/O possible GI bleed -no evidence of active bleeding at this time -Stool occult test came back positive -GI on board, Continue pantoprazole 40 mg IV b.i.d. -ferrous sulfate 325 mg daily History of pacemaker, CVAx5, hyperlipidemia -continue on aspirin 81 mg daily, clopidogrel 75 mg daily and atorvastatin 20 mg daily History of liver cirrhosis and thrombocytopenia -monitor liver enzymes and platelets Severe protein malnutrition -Currently on puree diet -Animal Chiropractor consulted and swallow eval to determine progression to cardiac diet Goals of care discussed with the patient at bedside for >25min, Chemical code Plan discussed with Dr. Hernandez Plan discussed with: Patient My Orders My Orders Orders - NOAH SINGH Procedure Category Date Status Time Metoprolol Tartrate PHA 07/26/24 In Process Tablet (Lopressor Ta 10:00 * Swallow Request ST 07/25/24 Transmitted 13:02 Ferrous Sulfate Tablet PHA 07/26/24 In Process 10:00 Docusate Sodium PHA 07/25/24 In Process Capsule (Colace 22:00 Apply Barrier Cream CAREN 07/25/24 In Process 11:26 Lt Upper Dvt US 07/25/24 Resulted 16:21 Respiratory Culture JEFFREY 07/26/24 Logged W/ Gs 08:25 Dietary Evaluation Review Recommendations by RD: Protein Supplementation Comments: 1) Agree with previous RD recommendation - Initiate Ensure Enlive bid 2) Initiate Pro-Stat @ 30 mL qd 3) Initiate vitamin C @ 500 mg bid 4) Advance to hepatic diet when medically feasible, pending DENSITOMETER READER approval 4) Follow-up with hepatology, cardiology and gastroenterology Expected Outcomes/Goals: 1) appetite and labs to advance 2) wound to improve 3) diet to advance 4) f/u in 2-3 days Date of Service: Jul 26, 2024 Billing Provider: ROSE MARIE HERNANDEZ MD Common Visit Codes: [id number] INP/OBS CARE(HIGH) NOAH SINGH RESIDENT Jul 26, 2024 11:30 ROSE MARIE HERNANDEZ MD Jul 26, 2024 23:41
--- NOTE | 2024-07-26 15:58 | DVHPN2 ---
Progress Note - Dictate Date Seen: Jul 25, 2024 Has the PT tested + for MRSA If YES, has PT been informed?: No Medical Necessity Reason Pt with a Central, PICC or Fol: No The following are medically ne: Gonzáles Catheter Subjective PT WELL KNOWN TO ME SEEN IN [facility] ER NOW WITH CHEST PAIN ELEVATED TROPONIN NSTEMI PMH ORGANIC HD CAD S/P CABG MULTIPLE CVA/ INITIAL AFTER CABG A FIB HYPERLIPIDEMIA SSS S/P PPI vital signs Vital Sign Date Time Temp Pulse Resp B/P (MAP) Pulse Ox O2 Delivery O2 Flow Rate FiO2 07/26/24 12:41 98.1 75 18 98/59 (72) 90 98.1 07/26/24 09:08 Nasal Cannula 1.0 07/26/24 09:08 24 Total Intake and Output 07/25/24 07/25/24 07/26/24 15:00 23:00 07:00 Intake Total 200 ml 600 ml 800 ml Output Total 1250 ml 550 ml Balance 200 ml -650 ml 250 ml medications Current Medications Medications Dose Ordered Sig/Kenji Route Start Time Stop Time Status Last Admin Dose Admin Acetaminophen/ Hydrocodone Bitart 1 tab Q4HP PRN PO 07/20/24 11:45 Ondansetron HCl 4 mg Q4HP PRN IV 07/20/24 11:45 Acetaminophen 650 mg Q6HP PRN PO 07/20/24 11:45 07/25/24 23:09 650 MG Nitroglycerin 0.4 mg Q5MINP PRN SL 07/20/24 11:45 Morphine Sulfate 2 mg Q30M PRN IV 07/20/24 11:45 Atorvastatin Calcium 20 mg DAILY PO 07/21/24 10:00 07/26/24 10:10 20 MG Levothyroxine Sodium 50 mcg QAM PO 07/21/24 07:00 07/26/24 07:40 50 MCG Trazodone HCl 50 mg HS PO 07/20/24 22:00 07/25/24 21:24 50 MG Hydroxyzine HCl 10 mg HSPRN PRN PO 07/20/24 11:45 Doxycycline Hyclate 100 ml @ 50 mls/hr Q12H IV 07/21/24 08:00 07/26/24 10:05 50 MLS/HR Clopidogrel Bisulfate 75 mg DAILY PO 07/22/24 10:00 07/26/24 10:15 75 MG Aspirin 81 mg DAILY PO 07/22/24 10:00 07/26/24 10:14 81 MG Polyethylene Glycol 17 gm DAILYPRN PRN PO 07/22/24 08:45 07/23/24 11:56 17 GM Piperacillin Sod/ Tazobactam Sod 100 ml @ 25 mls/hr Q8HR IV 07/22/24 14:00 07/26/24 05:11 25 MLS/HR Pantoprazole Sodium 40 mg BID IV 07/23/24 10:00 07/26/24 10:01 40 MG Amiodarone HCl 200 mg DAILY PO 07/24/24 10:00 07/26/24 10:11 200 MG Magnesium Oxide 400 mg BID PO 07/23/24 22:00 07/26/24 10:10 400 MG Albuterol 2.5 mg Q6HWA [facility] 07/24/24 12:00 07/26/24 12:59 2.5 MG Ipratropium [place] 0.5 mg Q6HWA [facility] 07/24/24 12:00 07/26/24 12:59 0.5 MG Furosemide 40 mg DAILY IV 07/25/24 10:00 Albuterol 2.5 mg Q8HPRN PRN NEB 07/24/24 11:15 Ipratropium [place] 0.5 mg Q8HPRN PRN [facility] 07/24/24 11:15 Artificial Tears 1 drop Q2HP PRN EACHEYE 07/24/24 15:30 07/25/24 21:44 1 DROP Lactulose 30 ml DAILY PO 07/25/24 10:00 07/25/24 10:35 30 ML Metoprolol Tartrate 12.5 mg Q12H PO 07/26/24 10:00 07/26/24 08:30 12.5 MG Ferrous Sulfate 325 mg DAILY PO 07/26/24 10:00 Docusate Sodium 100 mg BID PO 07/25/24 22:00 07/25/24 21:48 100 MG laboratory and microbiology Laboratory Tests 07/26/24 06:18 Test 07/26/24 06:18 Range/Units Serum Glucose 87 74-106 mg/dL Problem List SEEN IN [facility] ER NOW WITH CHEST PAIN ELEVATED TROPONIN NSTEMI PMH ORGANIC HD CAD S/P CABG MULTIPLE CVA/ INITIAL AFTER CABG A FIB HYPERLIPIDEMIA SSS S/P PPI Assessment/Plan [facility] 07/21/24 * Left main had a high-grade distal lesion of greater than 90%. * Left anterior descending artery was occluded. * Circumflex heavily calcified, had a 90% narrowing ostially. * Right coronary artery was occluded. * Saphenous vein graft to the PDA was patent; however, had an 80% narrowing ostially, status post thrombectomy with shockwave treatment with stent placement, 3.5 x 22 mm [place] stent, postdilated to 4.1 mm. MEEHAN to the LAD was patent. [place] LAD was occluded. Ejection fraction was less than 25% with LVEDP of 15 mmHg with no gradient across the aortic valve. Underlying rhythm was atrial fibrillation. The patient will require further intervention of the left main and the [place] circumflex where the OM graft is closed, but is highly is still patent with a severe diffuse disease. The patient underwent successful angioplasty with stent placement of the saphenous vein graft to the PDA. ECHO SEGMENTAL WALL MOTION ABNL EF 25% PLAVIX REINITIATE ELIQUIS IN 1 WEEK AT A LOWER DOSE LEFT MAIN AND [place] CX INTERVENTION ON FRIDAY [facility] IN AM Dietary Evaluation Review Recommendations by RD: Protein Supplementation Comments: 1) Agree with previous RD recommendation - Initiate Ensure Enlive bid 2) Initiate Pro-Stat @ 30 mL qd 3) Initiate vitamin C @ 500 mg bid 4) Advance to hepatic diet when medically feasible, pending HAT FORMING MACHINE FEEDER approval 4) Follow-up with hepatology, cardiology and gastroenterology Expected Outcomes/Goals: 1) appetite and labs to advance 2) wound to improve 3) diet to advance 4) f/u in 2-3 days Plan discussed with: Patient Critical Care Time(min): 35 BARBARA BAIN MD Jul 26, 2024 15:58
[2024-07-26] MEDS: PIPERACILLIN-TAZOB 3.375GM 100 ML IV SCH (16:45)
--- NOTE | 2024-07-26 22:05 | DVHPN2 ---
Progress Note - Dictate Date Seen: Jul 26, 2024 Has the PT tested + for MRSA If YES, has PT been informed?: No Medical Necessity Reason Pt with a Central, PICC or Fol: No The following are medically ne: Gonzálse Catheter Subjective Patient was seen at bedside this morning There was no further episodes of coffee-ground emesis or upper GI bleed Patient is S/P cardiac catheterization with stent placement currently on Plavix and aspirin vital signs Vital Sign Date Time Temp Pulse Resp B/P (MAP) Pulse Ox O2 Delivery O2 Flow Rate FiO2 07/26/24 21:30 110 105/47 07/26/24 21:00 99.0 18 94 99.0 07/26/24 19:21 Nasal Cannula 1.0 07/26/24 19:21 24 Total Intake and Output 07/25/24 07/25/24 07/26/24 15:00 23:00 07:00 Intake Total 200 ml 600 ml 800 ml Output Total 1250 ml 550 ml Balance 200 ml -650 ml 250 ml medications Current Medications Medications Dose Ordered Sig/Kenji Route Start Time Stop Time Status Last Admin Dose Admin Acetaminophen/ Hydrocodone Bitart 1 tab Q4HP PRN PO 07/20/24 11:45 Ondansetron HCl 4 mg Q4HP PRN IV 07/20/24 11:45 Acetaminophen 650 mg Q6HP PRN PO 07/20/24 11:45 07/25/24 23:09 650 MG Nitroglycerin 0.4 mg Q5MINP PRN SL 07/20/24 11:45 Morphine Sulfate 2 mg Q30M PRN IV 07/20/24 11:45 Atorvastatin Calcium 20 mg DAILY PO 07/21/24 10:00 07/26/24 10:10 20 MG Levothyroxine Sodium 50 mcg QAM PO 07/21/24 07:00 07/26/24 07:40 50 MCG Trazodone HCl 50 mg HS PO 07/20/24 22:00 07/26/24 21:29 50 MG Hydroxyzine HCl 10 mg HSPRN PRN PO 07/20/24 11:45 Doxycycline Hyclate 100 ml @ 50 mls/hr Q12H IV 07/21/24 08:00 07/26/24 20:35 50 MLS/HR Clopidogrel Bisulfate 75 mg DAILY PO 07/22/24 10:00 07/26/24 10:15 75 MG Aspirin 81 mg DAILY PO 07/22/24 10:00 07/26/24 10:14 81 MG Polyethylene Glycol 17 gm DAILYPRN PRN PO 07/22/24 08:45 07/23/24 11:56 17 GM Pantoprazole Sodium 40 mg BID IV 07/23/24 10:00 07/26/24 21:28 40 MG Amiodarone HCl 200 mg DAILY PO 07/24/24 10:00 07/26/24 10:11 200 MG Magnesium Oxide 400 mg BID PO 07/23/24 22:00 07/26/24 21:30 400 MG Albuterol 2.5 mg Q6HWA [facility] 07/24/24 12:00 07/26/24 19:21 2.5 MG Ipratropium [place] 0.5 mg Q6HWA [facility] 07/24/24 12:00 07/26/24 19:21 0.5 MG Furosemide 40 mg DAILY IV 07/25/24 10:00 Albuterol 2.5 mg Q8HPRN PRN [facility] 07/24/24 11:15 Ipratropium [place] 0.5 mg Q8HPRN PRN NEB 07/24/24 11:15 Artificial Tears 1 drop Q2HP PRN [facility] 07/24/24 15:30 07/25/24 21:44 1 DROP Lactulose 30 ml DAILY PO 07/25/24 10:00 07/25/24 10:35 30 ML Metoprolol Tartrate 12.5 mg Q12H PO 07/26/24 10:00 07/26/24 21:30 12.5 MG Ferrous Sulfate 325 mg DAILY PO 07/26/24 10:00 Docusate Sodium 100 mg BID PO 07/25/24 22:00 07/26/24 21:28 100 MG Piperacillin Sod/ Tazobactam Sod 100 ml @ 25 mls/hr Q8H IV 07/26/24 17:00 07/26/24 16:45 25 MLS/HR objective General: NAD, AAOX3 Chest: lung park clear to auscultation Heart: RRR, no murmur Abdomen: no tenderness to palpation, +BS laboratory and microbiology Laboratory Tests 07/26/24 06:18 Test 07/26/24 06:18 Range/Units Serum Glucose 87 74-106 mg/dL Problems(with codes): (1) NSTEMI (non-ST elevated myocardial infarction) (2) Elevated LFTs (3) Generalized weakness (4) Atrial fibrillation and flutter (5) GIB (gastrointestinal bleeding) (6) Anemia (7) Acute on chronic diastolic heart failure Prognosis Plan Patient is scheduled for a repeat left heart catheterization tomorrow and cardiology intervention as detailed Continue Protonix 40 mg IV q.12 hours Continue to monitor labs Patient not stable for endoscopic procedure at this time I will continue to monitor patient with you Dietary Evaluation Review Recommendations by RD: Protein Supplementation Comments: 1) Agree with previous RD recommendation - Initiate Ensure Enlive bid 2) Initiate Pro-Stat @ 30 mL qd 3) Initiate vitamin C @ 500 mg bid 4) Advance to hepatic diet when medically feasible, pending MANAGER COMMERCIAL approval 4) Follow-up with hepatology, cardiology and gastroenterology Expected Outcomes/Goals: 1) appetite and labs to advance 2) wound to improve 3) diet to advance 4) f/u in 2-3 days Plan discussed with: Patient GABRIEL LÓPEZ MD Jul 26, 2024 22:05
[2024-07-27] VITALS (16 sets, daily range): BP systolic 90–122; BP diastolic 45–68; PULSE 71–118; RESP 16–19; TEMP 97.9–99.5; O2SAT 91–100
[2024-07-27 04:12] LABS: Urine Bacteria None Seen /hpf (None Seen)
[2024-07-27 04:43] LABS: Urine Blood 2+ /uL (Negative); Urine Clarity Turbid (Clear); Urine Color Yellow (Yellow); Urine Protein, UAD 1+ (Negative); Urine Specific Gravity 1.033 (1.001-1.035); Urine Squamous Epithelial Cell FEW /hpf (<5); Urine Urobilinogen 6 mg/dL (Negative); Urine WBC 9 /HPF (0-3); Urine pH 6.5 (5.0-9.0)
[2024-07-27 06:24] LABS: Basophils # (auto) 0 10 ^3/uL (0-0.2); Hemoglobin 8.2 g/dL (13.5-17.5); White Blood Cell 5.5 10^3/uL (4.4-10.8)
[2024-07-27 06:28] LABS: Basophils % (auto) 0.7 % (0.0-2.0); Eosinophils # (auto) 0.3 10 ^3/uL (0-0.8); Eosinophils % (auto) 5.1 % (0.0-7.0); Hematocrit 24.3 % (41.0-53.0); Lymphocytes % (auto) 19.2 % (10.0-50.0); Mean Corpuscular Hgb Conc. 33.9 g/dL (32.0-36.0); Mean Corpuscular Volume 88.5 fL (80.0-100.0); Monocytes # (auto) 0.8 10 ^3/uL (0-1.3); Monocytes % (auto) 14.1 % (0.0-12.0); Neutrophils # (auto) 3.3 10 ^3/uL (1.6-8.6); Neutrophils % (auto) 60.9 % (37.0-80.0); Platelet Count (auto) 116 10^3/uL (140-450); Red Blood Cells 2.74 10^6/uL (4.5-5.90); Red Cell Distribution Width 17.4 % (11.8-14.3)
[2024-07-27 06:40] LABS: INR 1.38 (0.9-1.15); Partial Thromboplastin Time 35.3 SEC (24.5-34.5); Prothrombin Time 14.2 sec (9.3-11.8)
[2024-07-27 06:42] LABS: Chloride 102 mmol/L (98-107); Potassium 3.7 mmol/L (3.5-5.1); Sodium 138 mmol/L (136-145)
[2024-07-27 06:43] LABS: Anion Gap 5 (5-15)
[2024-07-27 06:48] LABS: BUN/Creatinine Ratio 19.1 (10.0-20.0); Blood Urea Nitrogen 13 mg/dL (9-23); Glucose 79 mg/dL (74-106)
[2024-07-27 06:50] LABS: Calcium 8.4 mg/dL (8.7-10.4); Carbon Dioxide 31 mmol/L (20-31)
--- NOTE | 2024-07-27 09:18 | DVH ---
INDICATION: PROCEDURE TECHNIQUE: Frontal view of the chest. COMPARISON: XY CHEST PORTABLE on DOS: 07/24/24, XY CHEST PORTABLE on DOS: 07/22/24, XY CHEST PORTABLE on DOS: 07/20/24, XY CHEST PORTABLE on DOS: 01/24/24, XY CHEST PORTABLE on DOS: 10/13/23 FINDINGS: Median sternotomy. Left-sided pacemaker. The heart and mediastinal contours are grossly unremarkable . There is no evidence of pleural disease. The lungs are clear. The bony structures of the chest are intact without fracture. IMPRESSION: 1. No evidence of acute disease.
--- NOTE | 2024-07-27 11:13 | DVHPN2 ---
Progress Note - Dictate Date Seen: Jul 26, 2024 Has the PT tested + for MRSA If YES, has PT been informed?: No Medical Necessity Reason Pt with a Central, PICC or Fol: No The following are medically ne: Gonzáles Catheter Subjective PT WELL KNOWN TO ME SEEN IN [facility] NOW WITH CHEST PAIN ELEVATED TROPONIN NSTEMI PMH ORGANIC HD CAD S/P CABG MULTIPLE CVA/ INITIAL AFTER CABG A FIB HYPERLIPIDEMIA SSS S/P PPI vital signs Vital Sign Date Time Temp Pulse Resp B/P (MAP) Pulse Ox O2 Delivery O2 Flow Rate FiO2 07/27/24 09:00 99.5 88 18 90/49 (63) 95 99.5 07/27/24 08:25 1.0 07/27/24 06:09 Nasal Cannula 07/27/24 06:09 24 Total Intake and Output 07/26/24 07/26/24 07/27/24 15:00 23:00 07:00 Intake Total 200 ml 880 ml 950 ml Output Total 200 ml 1750 ml Balance 200 ml 680 ml -800 ml medications Current Medications Medications Dose Ordered Sig/Kenji Route Start Time Stop Time Status Last Admin Dose Admin Acetaminophen/ Hydrocodone Bitart 1 tab Q4HP PRN PO 07/20/24 11:45 Ondansetron HCl 4 mg Q4HP PRN IV 07/20/24 11:45 Acetaminophen 650 mg Q6HP PRN PO 07/20/24 11:45 07/25/24 23:09 650 MG Nitroglycerin 0.4 mg Q5MINP PRN SL 07/20/24 11:45 Morphine Sulfate 2 mg Q30M PRN IV 07/20/24 11:45 Atorvastatin Calcium 20 mg DAILY PO 07/21/24 10:00 07/26/24 10:10 20 MG Levothyroxine Sodium 50 mcg QAM PO 07/21/24 07:00 07/27/24 06:58 50 MCG Trazodone HCl 50 mg HS PO 07/20/24 22:00 07/26/24 21:29 50 MG Hydroxyzine HCl 10 mg HSPRN PRN PO 07/20/24 11:45 Doxycycline Hyclate 100 ml @ 50 mls/hr Q12H IV 07/21/24 08:00 07/27/24 09:19 50 MLS/HR Clopidogrel Bisulfate 75 mg DAILY PO 07/22/24 10:00 07/26/24 10:15 75 MG Aspirin 81 mg DAILY PO 07/22/24 10:00 07/26/24 10:14 81 MG Polyethylene Glycol 17 gm DAILYPRN PRN PO 07/22/24 08:45 07/23/24 11:56 17 GM Pantoprazole Sodium 40 mg BID IV 07/23/24 10:00 07/26/24 21:28 40 MG Amiodarone HCl 200 mg DAILY PO 07/24/24 10:00 07/26/24 10:11 200 MG Magnesium Oxide 400 mg BID PO 07/23/24 22:00 07/26/24 21:30 400 MG Albuterol 2.5 mg Q6HWA [facility] 07/24/24 12:00 07/27/24 06:09 2.5 MG Ipratropium [place] 0.5 mg Q6HWA [facility] 07/24/24 12:00 07/27/24 06:09 0.5 MG Furosemide 40 mg DAILY IV 07/25/24 10:00 Albuterol 2.5 mg Q8HPRN PRN [facility] 07/24/24 11:15 Ipratropium [place] 0.5 mg Q8HPRN PRN NEB 07/24/24 11:15 Artificial Tears 1 drop Q2HP PRN [facility] 07/24/24 15:30 07/25/24 21:44 1 DROP Lactulose 30 ml DAILY PO 07/25/24 10:00 07/25/24 10:35 30 ML Metoprolol Tartrate 12.5 mg Q12H PO 07/26/24 10:00 07/26/24 21:30 12.5 MG Ferrous Sulfate 325 mg DAILY PO 07/26/24 10:00 Docusate Sodium 100 mg BID PO 07/25/24 22:00 07/26/24 21:28 100 MG Piperacillin Sod/ Tazobactam Sod 100 ml @ 25 mls/hr Q8H IV 07/26/24 17:00 07/27/24 01:21 25 MLS/HR laboratory and microbiology Laboratory Tests 07/27/24 04:59 Test 07/27/24 04:59 Range/Units Serum Glucose 79 74-106 mg/dL Problem List SEEN IN [facility] NOW WITH CHEST PAIN ELEVATED TROPONIN NSTEMI PMH ORGANIC HD CAD S/P CABG MULTIPLE CVA/ INITIAL AFTER CABG A FIB HYPERLIPIDEMIA SSS S/P PPI Assessment/Plan [facility] 07/21/24 * Left main had a high-grade distal lesion of greater than 90%. * Left anterior descending artery was occluded. * Circumflex heavily calcified, had a 90% narrowing ostially. * Right coronary artery was occluded. * Saphenous vein graft to the PDA was patent; however, had an 80% narrowing ostially, status post thrombectomy with shockwave treatment with stent placement, 3.5 x 22 mm [place] stent, postdilated to 4.1 mm. MEEHAN to the LAD was patent. [place] LAD was occluded. Ejection fraction was less than 25% with LVEDP of 15 mmHg with no gradient across the aortic valve. Underlying rhythm was atrial fibrillation. The patient will require further intervention of the left main and the [place] circumflex where the OM graft is closed, but is highly is still patent with a severe diffuse disease. The patient underwent successful angioplasty with stent placement of the saphenous vein graft to the PDA. ECHO SEGMENTAL WALL MOTION ABNL EF 25% PLAVIX REINITIATE ELIQUIS IN 1 WEEK AT A LOWER DOSE LEFT MAIN AND [place] CX INTERVENTION ON FRIDAY [facility] IN AM Dietary Evaluation Review Recommendations by RD: Protein Supplementation Comments: 1) Agree with previous RD recommendation - Initiate Ensure Enlive bid 2) Initiate Pro-Stat @ 30 mL qd 3) Initiate vitamin C @ 500 mg bid 4) Advance to hepatic diet when medically feasible, pending COMMISSIONED POLICE OFFICER approval 4) Follow-up with hepatology, cardiology and gastroenterology Expected Outcomes/Goals: 1) appetite and labs to advance 2) wound to improve 3) diet to advance 4) f/u in 2-3 days Plan discussed with: Patient BARBARA BAIN MD Jul 27, 2024 11:12
--- NOTE | 2024-07-27 11:14 | DVHPN2 ---
Progress Note - Dictate Date Seen: Jul 27, 2024 Has the PT tested + for MRSA If YES, has PT been informed?: No Medical Necessity Reason Pt with a Central, PICC or Fol: No The following are medically ne: Gonzáles Catheter Subjective PT WELL KNOWN TO ME SEEN IN [facility] NOW WITH CHEST PAIN ELEVATED TROPONIN NSTEMI PMH ORGANIC HD CAD S/P CABG MULTIPLE CVA/ INITIAL AFTER CABG A FIB HYPERLIPIDEMIA SSS S/P PPI vital signs Vital Sign Date Time Temp Pulse Resp B/P (MAP) Pulse Ox O2 Delivery O2 Flow Rate FiO2 07/27/24 09:00 99.5 88 18 90/49 (63) 95 99.5 07/27/24 08:25 1.0 07/27/24 06:09 Nasal Cannula 07/27/24 06:09 24 Total Intake and Output 07/26/24 07/26/24 07/27/24 15:00 23:00 07:00 Intake Total 200 ml 880 ml 950 ml Output Total 200 ml 1750 ml Balance 200 ml 680 ml -800 ml medications Current Medications Medications Dose Ordered Sig/Kenji Route Start Time Stop Time Status Last Admin Dose Admin Acetaminophen/ Hydrocodone Bitart 1 tab Q4HP PRN PO 07/20/24 11:45 Ondansetron HCl 4 mg Q4HP PRN IV 07/20/24 11:45 Acetaminophen 650 mg Q6HP PRN PO 07/20/24 11:45 07/25/24 23:09 650 MG Nitroglycerin 0.4 mg Q5MINP PRN SL 07/20/24 11:45 Morphine Sulfate 2 mg Q30M PRN IV 07/20/24 11:45 Atorvastatin Calcium 20 mg DAILY PO 07/21/24 10:00 07/26/24 10:10 20 MG Levothyroxine Sodium 50 mcg QAM PO 07/21/24 07:00 07/27/24 06:58 50 MCG Trazodone HCl 50 mg HS PO 07/20/24 22:00 07/26/24 21:29 50 MG Hydroxyzine HCl 10 mg HSPRN PRN PO 07/20/24 11:45 Doxycycline Hyclate 100 ml @ 50 mls/hr Q12H IV 07/21/24 08:00 07/27/24 09:19 50 MLS/HR Clopidogrel Bisulfate 75 mg DAILY PO 07/22/24 10:00 07/26/24 10:15 75 MG Aspirin 81 mg DAILY PO 07/22/24 10:00 07/26/24 10:14 81 MG Polyethylene Glycol 17 gm DAILYPRN PRN PO 07/22/24 08:45 07/23/24 11:56 17 GM Pantoprazole Sodium 40 mg BID IV 07/23/24 10:00 07/26/24 21:28 40 MG Amiodarone HCl 200 mg DAILY PO 07/24/24 10:00 07/26/24 10:11 200 MG Magnesium Oxide 400 mg BID PO 07/23/24 22:00 07/26/24 21:30 400 MG Albuterol 2.5 mg Q6HWA [facility] 07/24/24 12:00 07/27/24 06:09 2.5 MG Ipratropium [place] 0.5 mg Q6HWA [facility] 07/24/24 12:00 07/27/24 06:09 0.5 MG Furosemide 40 mg DAILY IV 07/25/24 10:00 Albuterol 2.5 mg Q8HPRN PRN [facility] 07/24/24 11:15 Ipratropium [place] 0.5 mg Q8HPRN PRN NEB 07/24/24 11:15 Artificial Tears 1 drop Q2HP PRN EACHEYE 07/24/24 15:30 07/25/24 21:44 1 DROP Lactulose 30 ml DAILY PO 07/25/24 10:00 07/25/24 10:35 30 ML Metoprolol Tartrate 12.5 mg Q12H PO 07/26/24 10:00 07/26/24 21:30 12.5 MG Ferrous Sulfate 325 mg DAILY PO 07/26/24 10:00 Docusate Sodium 100 mg BID PO 07/25/24 22:00 07/26/24 21:28 100 MG Piperacillin Sod/ Tazobactam Sod 100 ml @ 25 mls/hr Q8H IV 07/26/24 17:00 07/27/24 01:21 25 MLS/HR laboratory and microbiology Laboratory Tests 07/27/24 04:59 Test 07/27/24 04:59 Range/Units Serum Glucose 79 74-106 mg/dL Problem List SEEN IN [facility] NOW WITH CHEST PAIN ELEVATED TROPONIN NSTEMI PMH ORGANIC HD CAD S/P CABG MULTIPLE CVA/ INITIAL AFTER CABG A FIB HYPERLIPIDEMIA SSS S/P PPI Assessment/Plan [facility] 07/21/24 * Left main had a high-grade distal lesion of greater than 90%. * Left anterior descending artery was occluded. * Circumflex heavily calcified, had a 90% narrowing ostially. * Right coronary artery was occluded. * Saphenous vein graft to the PDA was patent; however, had an 80% narrowing ostially, status post thrombectomy with shockwave treatment with stent placement, 3.5 x 22 mm [place] stent, postdilated to 4.1 mm. MEEHAN to the LAD was patent. [place] LAD was occluded. Ejection fraction was less than 25% with LVEDP of 15 mmHg with no gradient across the aortic valve. Underlying rhythm was atrial fibrillation. The patient will require further intervention of the left main and the little shell tribe circumflex where the OM graft is closed, but is highly is still patent with a severe diffuse disease. The patient underwent successful angioplasty with stent placement of the saphenous vein graft to the PDA. ECHO SEGMENTAL WALL MOTION ABNL EF 25% PLAVIX REINITIATE ELIQUIS IN 1 WEEK AT A LOWER DOSE LEFT MAIN AND HABEMATOLEL CX INTERVENTION ON FRIDAY [facility] IN AM 07/28/24 Dietary Evaluation Review Recommendations by RD: Protein Supplementation Comments: 1) Agree with previous RD recommendation - Initiate Ensure Enlive bid 2) Initiate Pro-Stat @ 30 mL qd 3) Initiate vitamin C @ 500 mg bid 4) Advance to hepatic diet when medically feasible, pending HANDLE AND VENT MACHINE OPERATOR approval 4) Follow-up with hepatology, cardiology and gastroenterology Expected Outcomes/Goals: 1) appetite and labs to advance 2) wound to improve 3) diet to advance 4) f/u in 2-3 days Plan discussed with: Patient Critical Care Time(min): 35 BARBARA BAIN MD Jul 27, 2024 11:13
--- NOTE | 2024-07-27 12:21 | ECG ---
[facility] Test Date: 2024-07-25 Test Time: 22:44:14 Pat Name: SHANNAN WOODRUFF Department: Room: 0277T A Gender: M Occupational Health And Safety Officer: NASEEM Crockett : 1950 Requested By: ANTONY SANCHEZ Order Number: [id number] Reading MD: Marlon Mcclain Measurements Intervals [place] Rate: 119 P: 0 DE: 0 QRS: -22 QRSD: 119 T: 166 QT: 303 QTc: 427 Interpretive Statements Atrial fibrillation Incomplete left bundle branch block Low voltage, extremity leads ST depr, consider ischemia, anterolateral lds Minimal ST elevation, inferior leads Electronically Signed On 07-29-2024 20:21:40 PDT by Marlon Mcclain Please click the below link to view image of tracing.
--- NOTE | 2024-07-27 13:00 | ECG ---
[facility] Test Date: 2024-07-27 Test Time: 04:24:06 Pat Name: SHANNAN WOODRUFF Department: Room: 0277T A Gender: M Vacuum Tester Cans: MADDY : 1950 Requested By: SUE PRECIADO Order Number: [id number] Reading MD: Marlon Mcclain Measurements Intervals [place] Rate: 118 P: 0 [place]: 0 QRS: 8 QRSD: 113 T: 206 QT: 363 QTc: 509 Interpretive Statements Atrial flutter Aberrant complex Borderline intraventricular conduction delay Low voltage, extremity leads Repol abnrm suggests ischemia, lateral leads Prolonged QT interval Electronically Signed On 07-29-2024 20:24:06 PDT by Marlon Mcclain Please click the below link to view image of tracing.
--- NOTE | 2024-07-27 13:51 | DVHPNRES ---
Progress Note Date Seen: Jul 27, 2024 Resident Creating Document: NOAH SINGH RESIDENT Has the PT tested + for MRSA If YES, has PT been informed?: No Medical Necessity Reason Pt with a Central, PICC or Fol: No The following are medically ne: Gonzáles Catheter Subjective Review of Systems This is a 73-year-old male with past medical history of congestive heart failure, atrial fibrillation, hypertension, hyperlipidemia, pacemaker, coronary artery disease with three graft, CVA (X five), hypothyroidism, the patient was transferred from [facility] due to NSTEMI and generalized weakness. At that time the patient was found to have elevated troponins and possible GI bleed reason why he was transferred to our hospital. Upon admission, the patient was initially found to be in AFib with RVR, hypotensive reason why Cardiology was consulted and patient was started on amiodarone drip. The patient received left heart catheterization on 07/24/2024 were once stent was placed in the saphenous vein graft to the PDA with thrombectomy of ostial segment. Last echocardiogram showed an LVEF of 25% and BNP was 729.36. Patient is currently on amiodarone p.o. b.i.d. after left heart catheterization on 07/24/2024, senior industrial engineer determine that there is a need of a further left heart catheterization on Friday for further intervention of the left main, 90 circumflex and LAD is also occluded. Patient seen and examined at bedside. Patient denies fever/chills, chest pain, shortness of breath or any other symptoms at this time. Coronary angiogram was postponed for tomorrow. We will resume diet and place the patient back to NPO after midnight. We will continue on IV Zosyn and doxycycline, metoprolol tartrate 12.5 mg b.i.d. amiodarone 200 mg daily, aspirin 81 mg, clopidogrel 75 mg daily and rest of current medical. ROS Constitutional: Denies weight loss, fever and chills. HEENT: Denies changes in vision and hearing. Respiratory: Denies shortness of breath and cough Cardiovascular: Denies chest discomfort or palpitations GI: Denies abdominal pain, nausea, vomiting and diarrhea. : Denies dysuria and urinary frequency. Musculoskeletal: Denies myalgias and joint pain Skin: Denies rash and pruritus. Neurological: Denies dizziness, headache, vision or hearing problems Objective vital signs Vital Sign Date Time Temp Pulse Resp B/P (MAP) Pulse Ox O2 Delivery O2 Flow Rate FiO2 07/27/24 12:36 99.0 79 16 122/68 (86) 94 99.0 07/27/24 12:15 Nasal Cannula 1.0 07/27/24 12:15 24 Total Intake and Output 07/26/24 07/26/24 07/27/24 15:00 23:00 07:00 Intake Total 200 ml 880 ml 950 ml Output Total 200 ml 1750 ml Balance 200 ml 680 ml -800 ml medications Current Medications Medications Dose Ordered Sig/Kenji Route Start Time Stop Time Status Last Admin Dose Admin Acetaminophen/ Hydrocodone Bitart 1 tab Q4HP PRN PO 07/20/24 11:45 Ondansetron HCl 4 mg Q4HP PRN IV 07/20/24 11:45 Acetaminophen 650 mg Q6HP PRN PO 07/20/24 11:45 07/25/24 23:09 650 MG Nitroglycerin 0.4 mg Q5MINP PRN SL 07/20/24 11:45 Morphine Sulfate 2 mg Q30M PRN IV 07/20/24 11:45 Atorvastatin Calcium 20 mg DAILY PO 07/21/24 10:00 07/27/24 11:19 20 MG Levothyroxine Sodium 50 mcg QAM PO 07/21/24 07:00 07/27/24 06:58 50 MCG Trazodone HCl 50 mg HS PO 07/20/24 22:00 07/26/24 21:29 50 MG Doxycycline Hyclate 100 ml @ 50 mls/hr Q12H IV 07/21/24 08:00 07/27/24 09:19 50 MLS/HR Clopidogrel Bisulfate 75 mg DAILY PO 07/22/24 10:00 07/27/24 11:29 75 MG Aspirin 81 mg DAILY PO 07/22/24 10:00 07/27/24 11:18 81 MG Polyethylene Glycol 17 gm DAILYPRN PRN PO 07/22/24 08:45 07/23/24 11:56 17 GM Pantoprazole Sodium 40 mg BID IV 07/23/24 10:00 07/27/24 11:18 40 MG Amiodarone HCl 200 mg DAILY PO 07/24/24 10:00 07/27/24 11:19 200 MG Magnesium Oxide 400 mg BID PO 07/23/24 22:00 07/27/24 11:18 400 MG Albuterol 2.5 mg Q6HWA NEB 07/24/24 12:00 07/27/24 12:07 2.5 MG Ipratropium [place] 0.5 mg Q6HWA NEB 07/24/24 12:00 07/27/24 12:07 0.5 MG Furosemide 40 mg DAILY IV 07/25/24 10:00 07/27/24 11:42 40 MG Albuterol 2.5 mg Q8HPRN PRN NEB 07/24/24 11:15 Ipratropium [place] 0.5 mg Q8HPRN PRN NEB 07/24/24 11:15 Artificial Tears 1 drop Q2HP PRN EACHEYE 07/24/24 15:30 07/25/24 21:44 1 DROP Lactulose 30 ml DAILY PO 07/25/24 10:00 07/27/24 11:18 30 ML Metoprolol Tartrate 12.5 mg Q12H PO 07/26/24 10:00 07/27/24 11:21 12.5 MG Ferrous Sulfate 325 mg DAILY PO 07/26/24 10:00 07/27/24 11:19 325 MG Docusate Sodium 100 mg BID PO 07/25/24 22:00 07/27/24 11:18 100 MG Piperacillin Sod/ Tazobactam Sod 100 ml @ 25 mls/hr Q8H IV 07/26/24 17:00 07/27/24 11:31 25 MLS/HR Examination Physical Examination General: Patient alert and oriented in person, place and time. Patient is currently complaining of generalized weakness and fatigue. Patient following commands. HEENT: Normocephalic, atraumatic, moist mucous membranes Respiratory/pulmonary: There are mild bilateral lung crackles especially in the lung bases. Patient is currently on 2 L of oxygen through nasal cannula. No wheezes at this time. Cardiovascular: Normal heart sounds S1 and S2 with no associated murmurs Abdomen: Abdomen nondistended, there is no pain to palpation in any of the abdominal quadrants, no palpable masses. Extremities: There is no peripheral edema present at the lower extremities. Peripheral Pulses: 3+ Radial (R). 3+ Radial (L). 3+ Dorsalis pedis (R). 3+ Dorsalis pedis(L) Skin: No rashes or pruritus, there is no sacral edema present at this time. Neurological: Intact cranial nerves with no focal neurologic deficits laboratory and microbiology Laboratory Tests 07/27/24 04:59 Test 07/27/24 04:59 Range/Units Serum Glucose 79 74-106 mg/dL Microbiology Date/Time Source Procedure Growth Status 07/22/24 09:24 Blood Blood Culture - Final NO GROWTH AFTER 5 DAYS OF INCUBATION. Complete 07/21/24 08:35 Urine - [place] Urine Culture - Final Complete 07/21/24 02:20 Nose MRSA Screen - Final Complete Problem List/Assessment/Plan Problem List/Assessment/Plan Assessment/Plan Acute chest pain likely due to ACS NSTEMI likely type II -S/P stent placement to the saphenous vein graft to the PDA with thrombectomy of ostial segment on 07/24/2024 -continue aspirin 81 mg daily -continue clopidogrel 75 mg daily -continue atorvastatin 20 mg daily -patient is due for coronary angiogram tomorrow on 07/27/24 for further intervention of the left main, [place] circumflex and LAD. -no chest pain at this point -monitor blood pressure closely Atrial fibrillation with RVR, currently rate control -currently on AFib with rate control -continue amiodarone 200 mg daily -Continue metoprolol tartrate 12.5mg BID -monitor blood pressure Acute respiratory failure likely due to Gram-positive/Gram-negative bacterial pneumonia -chest x-ray was showing patchy opacification of the right middle lobe which could be consistent with possible pneumonia -continue IV Zosyn which was started on 07/22/2024 and IV doxycycline -Covid and flu both came back negative -currently on 2 L of oxygen through nasal cannula Possible septic shock due to bacterial pneumonia Possible cardiogenic shock due to low LVEF and CAD -continue on IV antibiotics as above -maintain rate control and blood pressure are normal range Hypotension due to above -hold metoprolol tartrate if map less than 60 -continue amiodarone for AFib with RVR -monitor blood pressure closely. We will consider albumin if blood pressure decreases. Hypothyroidism -TSH 3.92 -Order FT4 -Continue levothyroxine 50 mcg q.a.m. as of now Moderate normocytic normochromic anemia, R/O possible GI bleed -no evidence of active bleeding at this time -Stool occult test came back positive -GI on board, Continue pantoprazole 40 mg IV b.i.d. -ferrous sulfate 325 mg daily History of pacemaker, CVAx5, hyperlipidemia -continue on aspirin 81 mg daily, clopidogrel 75 mg daily and atorvastatin 20 mg daily History of liver cirrhosis and thrombocytopenia -monitor liver enzymes and platelets Severe protein malnutrition -Currently on puree diet -Technician Inventory Specialist consulted and swallow eval to determine progression to cardiac diet Goals of care discussed with the patient at bedside for >25min, Chemical code Plan discussed with Dr. Magallanes Plan discussed with: Patient My Orders My Orders Orders - NOAH SINGH Procedure Category Date Status Time Mechanical Soft Diet DIET 07/26/24 Transmitted Dinner Dietary Evaluation Review Recommendations by RD: Protein Supplementation Comments: 1) Agree with previous RD recommendation - Initiate Ensure Enlive bid 2) Initiate Pro-Stat @ 30 mL qd 3) Initiate vitamin C @ 500 mg bid 4) Advance to hepatic diet when medically feasible, pending EVENT PLANNING MANAGER approval 4) Follow-up with hepatology, cardiology and gastroenterology Expected Outcomes/Goals: 1) appetite and labs to advance 2) wound to improve 3) diet to advance 4) f/u in 2-3 days Date of Service: Jul 27, 2024 Billing Provider: TRIPP MAGALLANES MD Common Visit Codes: [id number] INP/OBS CARE(HIGH) NOAH SINGH RESIDENT Jul 27, 2024 13:51 TRIPP MAGALLANES MD Jul 27, 2024 18:25
--- NOTE | 2024-07-27 20:41 | DVHPN2 ---
Progress Note - Dictate Date Seen: Jul 27, 2024 Has the PT tested + for MRSA If YES, has PT been informed?: No Medical Necessity Reason Pt with a Central, PICC or Fol: No The following are medically ne: Gonzáles Catheter Subjective Patient was seen at bedside this morning There was no further episodes of coffee-ground emesis or upper GI bleed Patient is S/P cardiac catheterization with stent placement currently on Plavix and aspirin vital signs Vital Sign Date Time Temp Pulse Resp B/P (MAP) Pulse Ox O2 Delivery O2 Flow Rate FiO2 07/27/24 18:43 89 16 100 07/27/24 18:35 Nasal Cannula* 1 24 07/27/24 17:13 99.0 109/50 (69) 99.0 Total Intake and Output 07/26/24 07/26/24 07/27/24 15:00 23:00 07:00 Intake Total 200 ml 880 ml 950 ml Output Total 200 ml 1750 ml Balance 200 ml 680 ml -800 ml medications Current Medications Medications Dose Ordered Sig/Kenji Route Start Time Stop Time Status Last Admin Dose Admin Acetaminophen/ Hydrocodone Bitart 1 tab Q4HP PRN PO 07/20/24 11:45 Ondansetron HCl 4 mg Q4HP PRN IV 07/20/24 11:45 Acetaminophen 650 mg Q6HP PRN PO 07/20/24 11:45 07/25/24 23:09 650 MG Nitroglycerin 0.4 mg Q5MINP PRN SL 07/20/24 11:45 Morphine Sulfate 2 mg Q30M PRN IV 07/20/24 11:45 Atorvastatin Calcium 20 mg DAILY PO 07/21/24 10:00 07/27/24 11:19 20 MG Levothyroxine Sodium 50 mcg QAM PO 07/21/24 07:00 07/27/24 06:58 50 MCG Trazodone HCl 50 mg HS PO 07/20/24 22:00 07/26/24 21:29 50 MG Doxycycline Hyclate 100 ml @ 50 mls/hr Q12H IV 07/21/24 08:00 07/27/24 09:19 50 MLS/HR Clopidogrel Bisulfate 75 mg DAILY PO 07/22/24 10:00 07/27/24 11:29 75 MG Aspirin 81 mg DAILY PO 07/22/24 10:00 07/27/24 11:18 81 MG Polyethylene Glycol 17 gm DAILYPRN PRN PO 07/22/24 08:45 07/23/24 11:56 17 GM Pantoprazole Sodium 40 mg BID IV 07/23/24 10:00 07/27/24 11:18 40 MG Amiodarone HCl 200 mg DAILY PO 07/24/24 10:00 07/27/24 11:19 200 MG Magnesium Oxide 400 mg BID PO 07/23/24 22:00 07/27/24 11:18 400 MG Albuterol 2.5 mg Q6HWA NEB 07/24/24 12:00 07/27/24 18:36 2.5 MG Ipratropium [place] 0.5 mg Q6HWA NEB 07/24/24 12:00 07/27/24 18:36 0.5 MG Furosemide 40 mg DAILY IV 07/25/24 10:00 07/27/24 11:42 40 MG Albuterol 2.5 mg Q8HPRN PRN NEB 07/24/24 11:15 Ipratropium [place] 0.5 mg Q8HPRN PRN NEB 07/24/24 11:15 Artificial Tears 1 drop Q2HP PRN EACHEYE 07/24/24 15:30 07/25/24 21:44 1 DROP Lactulose 30 ml DAILY PO 07/25/24 10:00 07/27/24 11:18 30 ML Metoprolol Tartrate 12.5 mg Q12H PO 07/26/24 10:00 07/27/24 11:21 12.5 MG Ferrous Sulfate 325 mg DAILY PO 07/26/24 10:00 07/27/24 11:19 325 MG Docusate Sodium 100 mg BID PO 07/25/24 22:00 07/27/24 11:18 100 MG Piperacillin Sod/ Tazobactam Sod 100 ml @ 25 mls/hr Q8H IV 07/26/24 17:00 07/27/24 16:25 25 MLS/HR objective General: NAD, AAOX3 Chest: lung park clear to auscultation Heart: RRR, no murmur Abdomen: no tenderness to palpation, +BS laboratory and microbiology Laboratory Tests 07/27/24 04:59 Test 07/27/24 04:59 Range/Units Serum Glucose 79 74-106 mg/dL Problems(with codes): (1) Acute on chronic diastolic heart failure (2) NSTEMI (non-ST elevated myocardial infarction) (3) Elevated LFTs (4) Generalized weakness (5) GIB (gastrointestinal bleeding) (6) Anemia (7) PVCs (premature ventricular contractions) Prognosis PLAN Continue IV antibiotics Patient is on metoprolol and amiodarone Patient is taking aspirin and Plavix Left heart catheterization rescheduled for tomorrow I will be standing by in case the patient has any signs of bleeding Continue IV Protonix 40 mg q.12 hours for gastro protective effect Dietary Evaluation Review Recommendations by RD: Protein Supplementation Comments: 1) Agree with previous RD recommendation - Initiate Ensure Enlive bid 2) Initiate Pro-Stat @ 30 mL qd 3) Initiate vitamin C @ 500 mg bid 4) Advance to hepatic diet when medically feasible, pending AIRCRAFT PNEUDRAULICS REPAIRER approval 4) Follow-up with hepatology, cardiology and gastroenterology Expected Outcomes/Goals: 1) appetite and labs to advance 2) wound to improve 3) diet to advance 4) f/u in 2-3 days Plan discussed with: Patient GABRIEL LÓPEZ MD Jul 27, 2024 20:41
[2024-07-28] VITALS (18 sets, daily range): BP systolic 80–102; BP diastolic 42–69; PULSE 85–115; RESP 15–18; TEMP 97.8–98.7; O2SAT 0–100
[2024-07-28 07:14] LABS: Basophils # (auto) 0.1 10 ^3/uL (0-0.2); Basophils % (auto) 0.9 % (0.0-2.0); Eosinophils # (auto) 0.3 10 ^3/uL (0-0.8); Eosinophils % (auto) 4.3 % (0.0-7.0); Hematocrit 25.5 % (41.0-53.0); Hemoglobin 8.7 g/dL (13.5-17.5); Lymphocytes # (auto) 1.3 10 ^3/uL (0.4-5.4); Lymphocytes % (auto) 21.1 % (10.0-50.0); Mean Corpuscular Hemoglobin 30.6 pg (28.0-32.0); Mean Corpuscular Hgb Conc. 34.2 g/dL (32.0-36.0); Mean Corpuscular Volume 89.4 fL (80.0-100.0); Monocytes # (auto) 0.7 10 ^3/uL (0-1.3); Monocytes % (auto) 11.8 % (0.0-12.0); Neutrophils # (auto) 3.8 10 ^3/uL (1.6-8.6); Neutrophils % (auto) 61.9 % (37.0-80.0); Nucleated Red Blood Cells % 0.1 %; Platelet Count (auto) 123 10^3/uL (140-450); Red Blood Cells 2.85 10^6/uL (4.5-5.90); Red Cell Distribution Width 17.7 % (11.8-14.3); White Blood Cell 6.2 10^3/uL (4.4-10.8)
[2024-07-28 07:30] LABS: Anion Gap 8 (5-15); Carbon Dioxide 29 mmol/L (20-31); Chloride 102 mmol/L (98-107); Sodium 139 mmol/L (136-145)
[2024-07-28 07:36] LABS: BUN/Creatinine Ratio 19.5 (10.0-20.0); Blood Urea Nitrogen 15 mg/dL (9-23)
[2024-07-28 07:39] LABS: Calcium 8.4 mg/dL (8.7-10.4); Glucose 71 mg/dL (74-106); Potassium 3.5 mmol/L (3.5-5.1)
--- NOTE | 2024-07-28 08:10 | DVHPNRES ---
Progress Note Date Seen: Jul 28, 2024 Resident Creating Document: NOAH SINGH RESIDENT Has the PT tested + for MRSA If YES, has PT been informed?: No Medical Necessity Reason Pt with a Central, PICC or Fol: No The following are medically ne: Gonzáles Catheter Subjective Review of Systems This is a 73-year-old male with past medical history of congestive heart failure, atrial fibrillation, hypertension, hyperlipidemia, pacemaker, coronary artery disease with three graft, CVA (X five), hypothyroidism, the patient was transferred from [facility] due to NSTEMI and generalized weakness. At that time the patient was found to have elevated troponins and possible GI bleed reason why he was transferred to our hospital. Upon admission, the patient was initially found to be in AFib with RVR, hypotensive reason why Cardiology was consulted and patient was started on amiodarone drip. The patient received left heart catheterization on 07/24/2024 were once stent was placed in the saphenous vein graft to the PDA with thrombectomy of ostial segment. Last echocardiogram showed an LVEF of 25% and BNP was 729.36. Patient is currently on amiodarone p.o. b.i.d. after left heart catheterization on 07/24/2024, quill stripper determine that there is a need of a further left heart catheterization on Friday for further intervention of the left main, 90 circumflex and LAD is also occluded. Patient seen and examined at bedside. Patient is alert and oriented in person, place and time. Patient denies acute chest pain, shortness of breath but does reports fatigue and weak. Patient will be scheduled for coronary angiogram today. Patient is currently NPO awaiting for coronary angiogram. Continue metoprolol tartrate 12.5 mg b.i.d. and amiodarone 200 mg daily for rate control. Blood pressure is in the lower side but has been stable in the last couple of days. No major complaints at this time. Today patient will complete seven days of IV antibiotics for pneumonia, antibiotics will be discontinue tomorrow a.m.. ROS Constitutional: Reports minimal fatigue and weakness. Denies weight loss, fever and chills. HEENT: Denies changes in vision and hearing. Respiratory: Denies shortness of breath and cough Cardiovascular: Denies chest discomfort or palpitations GI: Denies abdominal pain, nausea, vomiting and diarrhea. : Denies dysuria and urinary frequency. Musculoskeletal: Denies myalgias and joint pain Skin: Denies rash and pruritus. Neurological: Denies dizziness, headache, vision or hearing problems Objective vital signs Vital Sign Date Time Temp Pulse Resp B/P (MAP) Pulse Ox O2 Delivery O2 Flow Rate FiO2 07/28/24 06:22 109 18 96 07/28/24 06:12 Room Air 07/28/24 06:12 0 21 07/28/24 05:00 97.8 85/50 (62) 97.8 Total Intake and Output 07/27/24 07/27/24 07/28/24 15:00 23:00 07:00 Intake Total 320 ml 825 ml 700 ml Output Total 2100 ml 450 ml Balance 320 ml -1275 ml 250 ml medications Current Medications Medications Dose Ordered Sig/Kenji Route Start Time Stop Time Status Last Admin Dose Admin Acetaminophen/ Hydrocodone Bitart 1 tab Q4HP PRN PO 07/20/24 11:45 Ondansetron HCl 4 mg Q4HP PRN IV 07/20/24 11:45 Acetaminophen 650 mg Q6HP PRN PO 07/20/24 11:45 07/25/24 23:09 650 MG Nitroglycerin 0.4 mg Q5MINP PRN SL 07/20/24 11:45 Morphine Sulfate 2 mg Q30M PRN IV 07/20/24 11:45 Atorvastatin Calcium 20 mg DAILY PO 07/21/24 10:00 07/27/24 11:19 20 MG Levothyroxine Sodium 50 mcg QAM PO 07/21/24 07:00 07/27/24 06:58 50 MCG Trazodone HCl 50 mg HS PO 07/20/24 22:00 07/27/24 22:20 50 MG Doxycycline Hyclate 100 ml @ 50 mls/hr Q12H IV 07/21/24 08:00 07/27/24 21:33 50 MLS/HR Clopidogrel Bisulfate 75 mg DAILY PO 07/22/24 10:00 07/27/24 11:29 75 MG Aspirin 81 mg DAILY PO 07/22/24 10:00 07/27/24 11:18 81 MG Polyethylene Glycol 17 gm DAILYPRN PRN PO 07/22/24 08:45 07/23/24 11:56 17 GM Pantoprazole Sodium 40 mg BID IV 07/23/24 10:00 07/27/24 22:18 40 MG Amiodarone HCl 200 mg DAILY PO 07/24/24 10:00 07/27/24 11:19 200 MG Magnesium Oxide 400 mg BID PO 07/23/24 22:00 07/27/24 22:20 400 MG Albuterol 2.5 mg Q6HWA NEB 07/24/24 12:00 07/28/24 06:12 2.5 MG Ipratropium [place] 0.5 mg Q6HWA NEB 07/24/24 12:00 07/28/24 06:12 0.5 MG Furosemide 40 mg DAILY IV 07/25/24 10:00 07/27/24 11:42 40 MG Albuterol 2.5 mg Q8HPRN PRN NEB 07/24/24 11:15 Ipratropium [place] 0.5 mg Q8HPRN PRN NEB 07/24/24 11:15 Artificial Tears 1 drop Q2HP PRN EACHEYE 07/24/24 15:30 07/25/24 21:44 1 DROP Lactulose 30 ml DAILY PO 07/25/24 10:00 07/27/24 11:18 30 ML Metoprolol Tartrate 12.5 mg Q12H PO 07/26/24 10:00 07/27/24 22:20 12.5 MG Ferrous Sulfate 325 mg DAILY PO 07/26/24 10:00 07/27/24 11:19 325 MG Docusate Sodium 100 mg BID PO 07/25/24 22:00 07/27/24 22:19 100 MG Piperacillin Sod/ Tazobactam Sod 100 ml @ 25 mls/hr Q8H IV 07/26/24 17:00 07/28/24 01:12 25 MLS/HR Examination Physical Examination General: Patient alert and oriented in person, place and time. Patient is currently complaining of generalized weakness and fatigue. Patient following commands. HEENT: Normocephalic, atraumatic, moist mucous membranes Respiratory/pulmonary: There are mild bilateral lung crackles especially in the lung bases. Patient is currently on 2 L of oxygen through nasal cannula. No wheezes at this time. Cardiovascular: Normal heart sounds S1 and S2 with no associated murmurs Abdomen: Abdomen nondistended, there is no pain to palpation in any of the abdominal quadrants, no palpable masses. Extremities: There is no peripheral edema present at the lower extremities. Peripheral Pulses: 3+ Radial (R). 3+ Radial (L). 3+ Dorsalis pedis (R). 3+ Dorsalis pedis(L) Skin: No rashes or pruritus, there is no sacral edema present at this time. Neurological: Intact cranial nerves with no focal neurologic deficits laboratory and microbiology Laboratory Tests 07/28/24 04:55 Test 07/28/24 04:55 Range/Units Serum Glucose 71 L 74-106 mg/dL Microbiology Date/Time Source Procedure Growth Status 07/22/24 09:24 Blood Blood Culture - Final NO GROWTH AFTER 5 DAYS OF INCUBATION. Complete 07/21/24 08:35 Urine - [place] Urine Culture - Final Complete 07/21/24 02:20 Nose MRSA Screen - Final Complete Problem List/Assessment/Plan Problem List/Assessment/Plan Assessment/Plan Acute chest pain likely due to ACS NSTEMI likely type II -S/P stent placement to the saphenous vein graft to the PDA with thrombectomy of ostial segment on 07/24/2024 -continue aspirin 81 mg daily -continue clopidogrel 75 mg daily -continue atorvastatin 20 mg daily -patient is due for coronary angiogram Today for further intervention of the left main, [place] circumflex and LAD. -Patient is NPO awaiting for coronary angiogram -no chest pain at this point -monitor blood pressure closely Atrial fibrillation with RVR, currently rate control -currently on AFib with rate control -continue amiodarone 200 mg daily -Continue metoprolol tartrate 12.5mg BID -monitor blood pressure Acute respiratory failure likely due to Gram-positive/Gram-negative bacterial pneumonia -chest x-ray was showing patchy opacification of the right middle lobe which could be consistent with possible pneumonia -continue IV Zosyn which was started on 07/22/2024 and IV doxycycline -Covid and flu both came back negative -currently on 2 L of oxygen through nasal cannula Possible septic shock due to bacterial pneumonia Possible cardiogenic shock due to low LVEF and CAD -continue on IV antibiotics as above -maintain rate control and blood pressure are normal range Hypotension due to above -hold metoprolol tartrate if map less than 60 -continue amiodarone for AFib with RVR -monitor blood pressure closely. We will consider albumin if blood pressure decreases. Hypothyroidism -TSH 3.92 -Order FT4 -Continue levothyroxine 50 mcg q.a.m. as of now Moderate normocytic normochromic anemia, R/O possible GI bleed -no evidence of active bleeding at this time -Stool occult test came back positive -GI on board, Continue pantoprazole 40 mg IV b.i.d. -ferrous sulfate 325 mg daily History of pacemaker, CVAx5, hyperlipidemia -continue on aspirin 81 mg daily, clopidogrel 75 mg daily and atorvastatin 20 mg daily History of liver cirrhosis and thrombocytopenia -monitor liver enzymes and platelets Severe protein malnutrition -Currently on puree diet -Surgery Center Administrator consulted and swallow eval to determine progression to cardiac diet Goals of care discussed with the patient at bedside for >25min, Chemical code Plan discussed with Dr. Magallanes Plan discussed with: Patient My Orders My Orders Orders - NOAH SINGH Procedure Category Date Status Time Npo After Midnight ORDERS 07/27/24 Transmitted Npo (Nothing By DIET 07/28/24 Transmitted Mouth) Diet Breakfast Npo After Midnight ORDERS 07/27/24 Transmitted Dietary Evaluation Review Recommendations by RD: Protein Supplementation Comments: 1) Agree with previous RD recommendation - Initiate Ensure Enlive bid 2) Initiate Pro-Stat @ 30 mL qd 3) Initiate vitamin C @ 500 mg bid 4) Advance to hepatic diet when medically feasible, pending BOMB TECHNICIAN approval 4) Follow-up with hepatology, cardiology and gastroenterology Expected Outcomes/Goals: 1) appetite and labs to advance 2) wound to improve 3) diet to advance 4) f/u in 2-3 days Date of Service: Jul 28, 2024 Billing Provider: TRIPP MAGALLANES MD Common Visit Codes: [id number] INP/OBS CARE(HIGH) NOAH SINGH RESIDENT Jul 28, 2024 08:10 TRIPP MAGALLANES MD Jul 28, 2024 11:16
--- NOTE | 2024-07-28 12:29 | DVHPN2 ---
Progress Note - Dictate Date Seen: Jul 28, 2024 Has the PT tested + for MRSA If YES, has PT been informed?: No Medical Necessity Reason Pt with a Central, PICC or Fol: No The following are medically ne: Gonzáles Catheter Subjective PT WELL KNOWN TO ME SEEN IN [facility] NOW WITH CHEST PAIN ELEVATED TROPONIN NSTEMI PMH ORGANIC HD CAD S/P CABG MULTIPLE CVA/ INITIAL AFTER CABG A FIB HYPERLIPIDEMIA SSS S/P PPI vital signs Vital Sign Date Time Temp Pulse Resp B/P (MAP) Pulse Ox O2 Delivery O2 Flow Rate FiO2 07/28/24 11:56 98 18 98 07/28/24 11:46 Room Air 07/28/24 11:46 0 21 07/28/24 10:09 103/52 07/28/24 09:00 98.6 98.6 Total Intake and Output 07/27/24 07/27/24 07/28/24 15:00 23:00 07:00 Intake Total 320 ml 825 ml 700 ml Output Total 2100 ml 450 ml Balance 320 ml -1275 ml 250 ml medications Current Medications Medications Dose Ordered Sig/Kenji Route Start Time Stop Time Status Last Admin Dose Admin Acetaminophen/ Hydrocodone Bitart 1 tab Q4HP PRN PO 07/20/24 11:45 Ondansetron HCl 4 mg Q4HP PRN IV 07/20/24 11:45 Acetaminophen 650 mg Q6HP PRN PO 07/20/24 11:45 07/25/24 23:09 650 MG Nitroglycerin 0.4 mg Q5MINP PRN SL 07/20/24 11:45 Morphine Sulfate 2 mg Q30M PRN IV 07/20/24 11:45 Atorvastatin Calcium 20 mg DAILY PO 07/21/24 10:00 07/28/24 10:06 20 MG Levothyroxine Sodium 50 mcg QAM PO 07/21/24 07:00 07/27/24 06:58 50 MCG Trazodone HCl 50 mg HS PO 07/20/24 22:00 07/27/24 22:20 50 MG Doxycycline Hyclate 100 ml @ 50 mls/hr Q12H IV 07/21/24 08:00 07/28/24 08:37 50 MLS/HR Clopidogrel Bisulfate 75 mg DAILY PO 07/22/24 10:00 07/28/24 10:09 75 MG Aspirin 81 mg DAILY PO 07/22/24 10:00 07/28/24 10:08 81 MG Polyethylene Glycol 17 gm DAILYPRN PRN PO 07/22/24 08:45 07/23/24 11:56 17 GM Pantoprazole Sodium 40 mg BID IV 07/23/24 10:00 07/28/24 10:07 40 MG Amiodarone HCl 200 mg DAILY PO 07/24/24 10:00 07/28/24 10:06 200 MG Magnesium Oxide 400 mg BID PO 07/23/24 22:00 07/28/24 10:06 400 MG Albuterol 2.5 mg Q6HWA NEB 07/24/24 12:00 07/28/24 11:46 2.5 MG Ipratropium [place] 0.5 mg Q6HWA NEB 07/24/24 12:00 07/28/24 11:46 0.5 MG Furosemide 40 mg DAILY IV 07/25/24 10:00 07/27/24 11:42 40 MG Albuterol 2.5 mg Q8HPRN PRN NEB 07/24/24 11:15 Ipratropium [place] 0.5 mg Q8HPRN PRN NEB 07/24/24 11:15 Artificial Tears 1 drop Q2HP PRN EACHEYE 07/24/24 15:30 07/25/24 21:44 1 DROP Lactulose 30 ml DAILY PO 07/25/24 10:00 07/28/24 10:07 30 ML Metoprolol Tartrate 12.5 mg Q12H PO 07/26/24 10:00 07/28/24 10:09 12.5 MG Ferrous Sulfate 325 mg DAILY PO 07/26/24 10:00 07/28/24 10:06 325 MG Docusate Sodium 100 mg BID PO 07/25/24 22:00 07/28/24 10:07 100 MG Piperacillin Sod/ Tazobactam Sod 100 ml @ 25 mls/hr Q8H IV 07/26/24 17:00 07/28/24 11:02 25 MLS/HR laboratory and microbiology Laboratory Tests 07/28/24 04:55 Test 07/28/24 04:55 Range/Units Serum Glucose 71 L 74-106 mg/dL Problem List SEEN IN [facility] NOW WITH CHEST PAIN ELEVATED TROPONIN NSTEMI PMH ORGANIC HD CAD S/P CABG MULTIPLE CVA/ INITIAL AFTER CABG A FIB HYPERLIPIDEMIA SSS S/P PPI Assessment/Plan [facility] 07/21/24 * Left main had a high-grade distal lesion of greater than 90%. * Left anterior descending artery was occluded. * Circumflex heavily calcified, had a 90% narrowing ostially. * Right coronary artery was occluded. * Saphenous vein graft to the PDA was patent; however, had an 80% narrowing ostially, status post thrombectomy with shockwave treatment with stent placement, 3.5 x 22 mm [place] stent, postdilated to 4.1 mm. MEEHAN to the LAD was patent. [place] LAD was occluded. Ejection fraction was less than 25% with LVEDP of 15 mmHg with no gradient across the aortic valve. Underlying rhythm was atrial fibrillation. The patient will require further intervention of the left main and the [place] circumflex where the OM graft is closed, but is highly is still patent with a severe diffuse disease. The patient underwent successful angioplasty with stent placement of the saphenous vein graft to the PDA. ECHO SEGMENTAL WALL MOTION ABNL EF 25% PLAVIX REINITIATE ELIQUIS IN 1 WEEK AT A LOWER DOSE LEFT MAIN AND PAMUNKEY CX INTERVENTION ON FRIDAY [facility] IN AM 07/28/24 Dietary Evaluation Review Recommendations by RD: Protein Supplementation Comments: 1) Agree with previous RD recommendation - Initiate Ensure Enlive bid 2) Initiate Pro-Stat @ 30 mL qd 3) Initiate vitamin C @ 500 mg bid 4) Advance to hepatic diet when medically feasible, pending SALES OPERATIONS ANALYST approval 4) Follow-up with hepatology, cardiology and gastroenterology Expected Outcomes/Goals: 1) appetite and labs to advance 2) wound to improve 3) diet to advance 4) f/u in 2-3 days Plan discussed with: Patient BARBARA BAIN MD Jul 28, 2024 12:29
[2024-07-28] MEDS: MIDAZOLAM HCL 2MG/2ML 2ml VIAL (1mg/ml) ONE (13:03)
[2024-07-28] MEDS: ANGIOMAX 250 MG VIAL IV ONE (13:03)
[2024-07-28] MEDS: methylPREDNISolone SOD SUCC 125 MG/2 ML VL ONE (13:03)
[2024-07-28] MEDS: SODIUM CHL 0.9% 50 ML ONE (13:04)
[2024-07-28] MEDS: LIDOCAINE 2%HCL (LOCAL ANESTH.) INJ 20ML MDV ONE (13:04)
[2024-07-28] MEDS: fentaNYL CITRATE 100 MCG/2 ML VL ONE (13:05)
[2024-07-28] MEDS: IODIXANOL 320MG/ML 100ML BTL IV ONE (14:00)
--- NOTE | 2024-07-28 22:40 | DVHOP ---
DATE OF SURGERY: 07/28/2024 PROCEDURES PERFORMED: * Left heart catheterization. * Conscious sedation. * Left subclavian angiography. DESCRIPTION OF PROCEDURE: The patient was prepped and draped under sterile condition. Xylocaine 1% used to anesthetize the right groin. Using a Cook needle, right femoral artery was engaged with Seldinger technique, a 6-Macedonian sheath in the right femoral artery. Using 6-Macedonian MEEHAN diagnostic catheter, angiography of the left subclavian, left internal mammary artery was performed. Then, using 6-Macedonian XB 3.5 guide catheter, left coronary angiography was performed. There were no complications. The patient tolerated the procedure well. Results showed the patient's MEEHAN to the LAD was patent. The patient's left main disease was actually 99% that was supplying the left anterior descending artery, which was bypassed to the left anterior descending artery. Therefore, at this time, no revascularization of the left main is required since the patient was getting adequate flow from the left thoracic artery left internal mammary artery. Initial angiogram suggested that the artery may be the circumflex multiple views taken and multiple projections taken, it was clear that was the left anterior descending artery not the circumflex. The circumflex artery itself is nondominant small vessel, does not require any intervention at this time. Bradley Cuellar MD SA/SAPPHIRE/GUDELIA TID: [id number] RECEIPT: [id number]
--- NOTE | 2024-07-28 23:34 | DVHPN2 ---
Progress Note - Dictate Date Seen: Jul 28, 2024 Has the PT tested + for MRSA If YES, has PT been informed?: No Medical Necessity Reason Pt with a Central, PICC or Fol: No The following are medically ne: Gonzáles Catheter Subjective Patient underwent repeat cardiac catheterization today and results were noted No GI complaints vital signs Vital Sign Date Time Temp Pulse Resp B/P (MAP) Pulse Ox O2 Delivery O2 Flow Rate FiO2 07/28/24 21:00 98.1 93 16 94/49 (64) 97 98.1 07/28/24 20:00 Room Air* 0 N/A Nasal Cannula* Total Intake and Output 07/27/24 07/27/24 07/28/24 14:59 22:59 06:59 Intake Total 320 ml 825 ml 700 ml Output Total 2100 ml 450 ml Balance 320 ml -1275 ml 250 ml medications Current Medications Medications Dose Ordered Sig/Kenji Route Start Time Stop Time Status Last Admin Dose Admin Acetaminophen/ Hydrocodone Bitart 1 tab Q4HP PRN PO 07/20/24 11:45 Ondansetron HCl 4 mg Q4HP PRN IV 07/20/24 11:45 Acetaminophen 650 mg Q6HP PRN PO 07/20/24 11:45 07/25/24 23:09 650 MG Nitroglycerin 0.4 mg Q5MINP PRN SL 07/20/24 11:45 Morphine Sulfate 2 mg Q30M PRN IV 07/20/24 11:45 Atorvastatin Calcium 20 mg DAILY PO 07/21/24 10:00 07/28/24 10:06 20 MG Levothyroxine Sodium 50 mcg QAM PO 07/21/24 07:00 07/27/24 06:58 50 MCG Trazodone HCl 50 mg HS PO 07/20/24 22:00 07/28/24 21:21 50 MG Doxycycline Hyclate 100 ml @ 50 mls/hr Q12H IV 07/21/24 08:00 07/28/24 21:20 50 MLS/HR Clopidogrel Bisulfate 75 mg DAILY PO 07/22/24 10:00 07/28/24 10:09 75 MG Aspirin 81 mg DAILY PO 07/22/24 10:00 07/28/24 10:08 81 MG Polyethylene Glycol 17 gm DAILYPRN PRN PO 07/22/24 08:45 07/23/24 11:56 17 GM Pantoprazole Sodium 40 mg BID IV 07/23/24 10:00 07/28/24 21:21 40 MG Amiodarone HCl 200 mg DAILY PO 07/24/24 10:00 07/28/24 10:06 200 MG Magnesium Oxide 400 mg BID PO 07/23/24 22:00 07/28/24 21:21 400 MG Albuterol 2.5 mg Q6HWA NEB 07/24/24 12:00 07/28/24 19:25 2.5 MG Ipratropium [place] 0.5 mg Q6HWA NEB 07/24/24 12:00 07/28/24 19:25 0.5 MG Furosemide 40 mg DAILY IV 07/25/24 10:00 07/27/24 11:42 40 MG Albuterol 2.5 mg Q8HPRN PRN NEB 07/24/24 11:15 Ipratropium [place] 0.5 mg Q8HPRN PRN NEB 07/24/24 11:15 Artificial Tears 1 drop Q2HP PRN EACHEYE 07/24/24 15:30 07/25/24 21:44 1 DROP Lactulose 30 ml DAILY PO 07/25/24 10:00 07/28/24 10:07 30 ML Metoprolol Tartrate 12.5 mg Q12H PO 07/26/24 10:00 07/28/24 10:09 12.5 MG Ferrous Sulfate 325 mg DAILY PO 07/26/24 10:00 07/28/24 10:06 325 MG Docusate Sodium 100 mg BID PO 07/25/24 22:00 07/28/24 21:21 100 MG Piperacillin Sod/ Tazobactam Sod 100 ml @ 25 mls/hr Q8H IV 07/26/24 17:00 07/28/24 16:53 25 MLS/HR objective General: NAD, AAOX3 Chest: lung park clear to auscultation Heart: RRR, no murmur Abdomen: no tenderness to palpation, +BS laboratory and microbiology Laboratory Tests 07/28/24 04:55 Test 07/28/24 04:55 Range/Units Serum Glucose 71 L 74-106 mg/dL Problems(with codes): (1) PVCs (premature ventricular contractions) (2) Acute on chronic diastolic heart failure (3) NSTEMI (non-ST elevated myocardial infarction) (4) Elevated LFTs (5) Generalized weakness (6) Atrial fibrillation and flutter (7) GIB (gastrointestinal bleeding) (8) Anemia Prognosis PLAN Patient is on metoprolol and amiodarone Patient is taking aspirin and Plavix Left heart catheterization results noted Resume and advance diet as tolerated I will be standing by in case the patient has any signs of bleeding Continue IV Protonix 40 mg q.12 hours for gastro protective effect Dietary Evaluation Review Recommendations by RD: Protein Supplementation Comments: 1) Agree with previous RD recommendation - Initiate Ensure Enlive bid 2) Initiate Pro-Stat @ 30 mL qd 3) Initiate vitamin C @ 500 mg bid 4) Advance to hepatic diet when medically feasible, pending CAGE OPERATOR approval 4) Follow-up with hepatology, cardiology and gastroenterology Expected Outcomes/Goals: 1) appetite and labs to advance 2) wound to improve 3) diet to advance 4) f/u in 2-3 days Plan discussed with: Patient GABRIEL LÓPEZ MD Jul 28, 2024 23:34
[2024-07-29] VITALS (11 sets, daily range): BP systolic 84–104; BP diastolic 41–67; PULSE 93–124; RESP 15–24; TEMP 36.8; O2SAT 90–99
[2024-07-29 07:09] LABS: Anion Gap 6 (5-15); Carbon Dioxide 28 mmol/L (20-31); Chloride 105 mmol/L (98-107); Potassium 3.6 mmol/L (3.5-5.1); Sodium 139 mmol/L (136-145)
[2024-07-29 07:11] LABS: Calcium 8.3 mg/dL (8.7-10.4)
[2024-07-29 07:15] LABS: BUN/Creatinine Ratio 17.9 (10.0-20.0); Blood Urea Nitrogen 14 mg/dL (9-23); Glucose 80 mg/dL (74-106)
[2024-07-29 07:19] LABS: Basophils # (auto) 0 10 ^3/uL (0-0.2); Eosinophils # (auto) 0.2 10 ^3/uL (0-0.8); Hemoglobin 8.4 g/dL (13.5-17.5); Monocytes # (auto) 0.6 10 ^3/uL (0-1.3); Nucleated Red Blood Cells % 0.1 %; Red Blood Cells 2.82 10^6/uL (4.5-5.90); White Blood Cell 4.9 10^3/uL (4.4-10.8)
[2024-07-29 07:21] LABS: Basophils % (auto) 0.8 % (0.0-2.0); Eosinophils % (auto) 4.1 % (0.0-7.0); Hematocrit 25.3 % (41.0-53.0); Lymphocytes % (auto) 19.7 % (10.0-50.0); Mean Corpuscular Hemoglobin 29.8 pg (28.0-32.0); Mean Corpuscular Hgb Conc. 33.2 g/dL (32.0-36.0); Mean Corpuscular Volume 89.7 fL (80.0-100.0); Monocytes % (auto) 12.2 % (0.0-12.0); Neutrophils # (auto) 3.1 10 ^3/uL (1.6-8.6); Neutrophils % (auto) 63.2 % (37.0-80.0); Platelet Count (auto) 124 10^3/uL (140-450); Red Cell Distribution Width 17.5 % (11.8-14.3)
[2024-07-29] MEDS ORDERED: AMIO200T33 PO (14:47)
[2024-07-29] MEDS ORDERED: METO25TA93 PO (14:47)
--- NOTE | 2024-07-29 15:06 | DVHDSRES ---
Discharge Summary Date of Admission Resident Creating Document: NOAH SINGH RESIDENT Jul 20, 2024 at 12:06 Date of Discharge: Jul 29, 2024 Admitting Diagnosis Acute chest pain Wounds: No wounds present at this time. Labs/Diagnostic Data: Laboratory Results Test 07/29/24 06:35 07/27/24 04:59 07/27/24 04:00 07/26/24 06:18 White Blood Count 4.9 10^3/uL (4.4-10.8) Red Blood Count 2.82 10^6/uL (4.5-5.90) Hemoglobin 8.4 g/dL (13.5-17.5) Hematocrit 25.3 % (41.0-53.0) Mean Corpuscular Volume 89.7 fL (80.0-100.0) Mean Corpuscular Hemoglobin 29.8 pg (28.0-32.0) Mean Corpuscular Hemoglobin Concent 33.2 g/dL (32.0-36.0) Red Cell Distribution Width 17.5 % (11.8-14.3) Platelet Count 124 10^3/uL (140-450) Mean Platelet Volume 8.3 fL (6.9-10.8) Neutrophils (%) (Auto) 63.2 % (37.0-80.0) Lymphocytes (%) (Auto) 19.7 % (10.0-50.0) Monocytes (%) (Auto) 12.2 % (0.0-12.0) Eosinophils (%) (Auto) 4.1 % (0.0-7.0) Basophils (%) (Auto) 0.8 % (0.0-2.0) Neutrophils # (Auto) 3.1 10 ^3/uL (1.6-8.6) Lymphocytes # (Auto) 1.0 10 ^3/uL (0.4-5.4) Monocytes # (Auto) 0.6 10 ^3/uL (0-1.3) Eosinophils # (Auto) 0.2 10 ^3/uL (0-0.8) Basophils # (Auto) 0 10 ^3/uL (0-0.2) Nucleated Red Blood Cells 0.1 % Sodium Level 139 mmol/L (136-145) Potassium Level 3.6 mmol/L (3.5-5.1) Chloride Level 105 mmol/L (98-107) Carbon Dioxide Level 28 mmol/L (20-31) Anion Gap 6 (5-15) Blood Urea Nitrogen 14 mg/dL (9-23) Creatinine 0.78 mg/dL (0.700-1.30) Glomerular Filtration Rate Calc 95 mL/min (>90) BUN/Creatinine Ratio 17.9 (10.0-20.0) Serum Glucose 80 mg/dL (74-106) Calcium Level 8.3 mg/dL (8.7-10.4) Prothrombin Time 14.2 sec (9.3-11.8) Prothrombin Time INR 1.38 (0.9-1.15) Activated Partial Thromboplast Time 35.3 SEC (24.5-34.5) Urine Color Yellow (Yellow) Urine Clarity Turbid (Clear) Urine pH 6.5 (5.0-9.0) Urine Specific Moran 1.033 (1.001-1.035) Urine Protein 1+ (Negative) Urine Ketones Negative (Negative) Urine Blood 2+ /uL (Negative) Urine Nitrite Negative (Negative) Urine Bilirubin Negative (Negative) Urine Urobilinogen 6 mg/dL (Negative) Urine Leukocyte Esterase Negative /uL (Negative) Urine RBC 817 /hpf (0 - 3) Urine Microscopic WBC 9 /HPF (0-3) Urine Squamous Epithelial Cells Few /hpf (<5) Urine Calcium Oxalate Crystals Mod (None Seen) Urine Bacteria None seen /hpf (None Seen) Urine Glucose Normal mg/dL (Normal) Magnesium Level 2.1 mg/dL (1.6-2.6) Total Bilirubin 1.3 mg/dL (0.2-1.0) Aspartate Amino Transferase (AST) 32 U/L (13-40) Alanine Aminotransferase (ALT) 21 U/L (7-40) Alkaline Phosphatase 90 U/L (46-116) Total Protein 5.3 g/dL (5.7-8.2) Albumin 2.4 g/dL (3.2-4.8) Test 07/24/24 21:25 07/24/24 16:08 07/24/24 04:12 07/22/24 09:24 Stool Occult Blood Positive (Negative) Stool Occult Blood Sample #3 (Negative) Urine Opiates Screen Neg (NEGATIVE) Urine Fentanyl Screen Neg (NEGATIVE) Urine Barbiturates Screen Neg (NEGATIVE) Urine Phencyclidine Screen Neg (NEGATIVE) Urine Amphetamines Screen Neg (NEGATIVE) Urine Benzodiazepines Screen Neg (NEGATIVE) Urine Cocaine Screen Neg (NEGATIVE) Urine Cannabinoids Screen Neg (NEGATIVE) B-Type Natriuretic Peptide 729.36 pg/mL (0-100) Lactic Acid Level 1.4 mmol/L (0.4-2.0) Test 07/22/24 03:40 07/21/24 09:45 07/21/24 08:35 07/21/24 08:15 C-Reactive Protein High Sensitivity 0.84 mg/dL (<1.0) Thyroid Stimulating Hormone (TSH) 3.92 uIU/mL (0.55-4.78) Digoxin Level 0.43 ng/mL (0.8-2) Iron Level 20 ug/dL (65-175) Total Iron Binding Capacity 252 ug/dL (250-425) Percent Iron Saturation 7.9 % (20-55) Ferritin 17.1 ng/mL (22-322) Vitamin B12 Level > 4000 pg/mL (211-911) Folic Acid > 24.00 ng/mL (>5.38) Hepatitis A Antibody Total Positive (Negative) Hepatitis B Surface Antigen Negative (Negative) Hepatitis B Surface Antibody Negative (Negative) Hepatitis B Core Total Antibody Negative (Negative) Hepatitis C Antibody Negative (Negative) Urine Mucus Few (None Seen) Influenza Type A Antigen Negative (Negative) Influenza Type B Antigen Negative (Negative) SARS-CoV-2 Antigen (Rapid) Negative (NEGATIVE) Test 07/21/24 03:54 07/20/24 10:41 Platelet Estimate Decreased Giant Platelets Few Troponin I High Sensitivity 1537 ng/L (</=54) Other Laboratory Tests 07/29/24 06:35 Brief Hx & Hospital Course: This is a 73-year-old male with past medical history of congestive heart failure, atrial fibrillation, hypertension, hyperlipidemia, pacemaker, coronary artery disease with three graft, CVA (X five), hypothyroidism, the patient was transferred from [facility] due to NSTEMI and generalized weakness. At that time the patient was found to have elevated troponins and possible GI bleed reason why he was transferred to our hospital. Upon admission, the patient was initially found to be in AFib with RVR, hypotensive reason why Cardiology was consulted and patient was started on amiodarone drip. The patient received left heart catheterization on 07/24/2024 were once stent was placed in the saphenous vein graft to the PDA with thrombectomy of ostial segment. Last echocardiogram showed an LVEF of 25% and BNP was 729.36. Patient is currently on amiodarone p.o. b.i.d. after left heart catheterization on 07/24/2024, administrative fellow determine that there is a need of a further left heart catheterization on Friday for further intervention of the left main, 90 circumflex and LAD is also occluded. patient undergone coronary angiogram by Dr. Velazquez and there was no need of stent placement at this time. Patient has been stable overall and blood pressure has been in the lower side the entire hospitalization but map above 65. We have a long discussion with the sister Margaret and with the patient regarding current medical status and how weak his heart is at this time with an LVEF less than 25%. We encouraged the patient to have a low-salt diet and limited oral fluid intake. We will discontinue metoprolol tartrate and start the patient metoprolol succinate 25 mg daily, continue amiodarone 200 mg daily, stop lisinopril and hydrochlorothiazide due to very low blood pressure. We explained that the patient needs to follow up closely with Cardiology as an outpatient and with his PCP. Patient and sister agrees with the plan. Patient will be discharged home with previous mentioned medications. ROS Constitutional: Reports minimal fatigue. Denies weight loss, fever and chills. HEENT: Denies changes in vision and hearing. Respiratory: Denies shortness of breath and cough Cardiovascular: Denies chest discomfort or palpitations GI: Denies abdominal pain, nausea, vomiting and diarrhea. : Denies dysuria and urinary frequency. Musculoskeletal: Denies myalgias and joint pain Skin: Denies rash and pruritus. Neurological: Denies dizziness, headache, vision or hearing problems Physical Examination General: Patient alert and oriented in person, place and time. Patient is currently complaining of generalized weakness and fatigue. Patient following commands. HEENT: Normocephalic, atraumatic, moist mucous membranes Respiratory/pulmonary: Bilateral lung sounds grossly clear at this time.. Patient is currently on room air. No wheezes at this time. Cardiovascular: Normal heart sounds S1 and S2 with no associated murmurs Abdomen: Abdomen nondistended, there is no pain to palpation in any of the abdominal quadrants, no palpable masses. Extremities: There is no peripheral edema present at the lower extremities. Peripheral Pulses: 3+ Radial (R). 3+ Radial (L). 3+ Dorsalis pedis (R). 3+ Dorsalis pedis(L) Skin: No rashes or pruritus, there is no sacral edema present at this time. Neurological: Intact cranial nerves with no focal neurologic deficits Consults/Reason for consult Cardiology for ACS Operations or Procedures CHEST RADIOGRAPH Indication: ami Technique: Single frontal view of the chest was obtained Comparison: XY CHEST PORTABLE on DOS: 01/24/24, XY CHEST PORTABLE on DOS: 10/13/23, XY CHEST PORTABLE on DOS: 09/26/22 Findings/ IMPRESSION: Left-sided cardiac device with intact leads. Extensive postsurgical changes of the mediastinum. Patchy opacification in the right mid to lower lung zone concerning for developing airspace disease. EXAM: US Abdomen Complete CLINICAL INDICATION: elevated LFTs TECHNIQUE: Real-time ultrasound of the abdomen with image documentation. COMPARISON: None FINDINGS: LIVER: Coarse appearing liver concerning for cirrhosis. Clinical correlation is recommended. Liver measures up to 12.8 cm. No intrahepatic bile duct dilation. GALLBLADDER: Cholelithiasis and sludge. Negative Lawson's sign was reported by the manager environmental health and safety. Possible thickened gallbladder wall measuring up to 4 mm thick. COMMON BILE DUCT: CBD not visualized. PANCREAS: Unremarkable as visualized. KIDNEYS: Right kidney measures up to 10.6 cm. Left kidney measures up to 11.5 cm. No stones. No hydronephrosis. SPLEEN: Unremarkable. No splenomegaly. AORTA: Unremarkable. No aneurysm. INFERIOR VENA CAVA: Unremarkable. FREE FLUID: No ascites. OTHER FINDINGS: . . IMPRESSION: Coarse appearing liver concerning for cirrhosis. Clinical correlation is recommended. LEFT Upper Extremity Venous Duplex Clinical History: R/O DVT Comparison: None Technique: Duplex Doppler evaluation of the venous system of the LEFT lower neck and upper extremity including color Doppler and spectral/pulsed waveform analysis was performed. Findings: The internal jugular vein demonstrates appropriate compressibility and waveform variability. The subclavian vein is patent on color Doppler evaluation without intraluminal thrombus and demonstrates waveform variability. The visualized portion of the brachiocephalic vein is patent on color Doppler evaluation without intraluminal thrombus and demonstrates waveform variability. The axillary vein demonstrates appropriate compressibility and waveform variability. The brachial veins demonstrate appropriate compressibility and patency on Doppler evaluation. The basilic vein demonstrates appropriate compressibility and patency on Doppler evaluation. The cephalic vein demonstrates NO FLOW AND NO COMPRESSIBILITY Impression: 1. No DEEP venous thrombus identified in the LEFT upper extremity vessels evaluated above. 2. There is no flow or compressibility of the left cephalic vein. 3. If clinical concern/symptoms persist or worsen, short-interval follow-up study is suggested. DATE OF SURGERY: 07/21/2024 INDICATIONS: The patient with subendocardial NJ. The patient has a history of coronary artery bypass grafting with MEEHAN to the LAD, saphenous vein graft to the OM, saphenous vein graft to the diagonal, saphenous vein graft to the PDA. The patient with marked elevation in blood troponin level consistent with acute closure of the saphenous vein graft. The patient now to undergo coronary angiography to define coronary anatomy. Further recommendations after. PROCEDURES PERFORMED: * Selective left and right coronary angiography, ventriculogram, right iliac angiography, angiography of the saphenous vein graft, subclavian vein. Conscious sedation. * Angioplasty with stent placement of the saphenous vein graft to the PDA with thrombectomy of the ostial segment. Deployment of the stent 3.5 x 22 mm Hamilton stent and further postdilated with a 4.0 noncompliant Euphora balloon. DESCRIPTION OF PROCEDURE: The patient was prepped and draped in a sterile condition. 1% Xylocaine used to anesthetize the right groin. Using Cook needle, right femoral artery was engaged with Seldinger technique, a 6-Luxembourger sheath in the right femoral artery. Using 6-Luxembourger JL4 diagnostic catheter and a 6-Luxembourger JR4 diagnostic catheter, selective left and right coronary angiographies were performed. Using 6-Luxembourger pigtail catheter, ventriculogram was done. Following that, using 6-Luxembourger diagnostic system was exchanged for a 6-Luxembourger interventional system. We initially wanted to do the left main so that we can revascularize the [place] circumflex, but that was heavily calcified. It was not going to close acutely but the saphenous vein graft had about an 80% narrowing ostially and therefore opening up the saphenous vein graft was far more important. We did not want to overload the patient with contrast. Therefore, a multipurpose guide catheter was used to cannulate the saphenous vein graft to the PDA. ChoICE PT extra support wire was used to cross the lesion followed by thrombectomy and shockwave treatment of the ostium of the RCA graft with a 3.0 x 12 mm shockwave balloon. Following that, a stent 3.5 x 22 mm Hamilton Hardin stent was then deployed across the lesion at 16 atmospheres. It was then postdilated using a 4 mm x 15 mm Euphora noncompliant balloon. There were no complications. The patient tolerated the procedure well. RESULTS: * Left main had a high-grade distal lesion of greater than 90%. * Left anterior descending artery was occluded. * Circumflex heavily calcified, had a 90% narrowing ostially. * Right coronary artery was occluded. * Saphenous vein graft to the PDA was patent; however, had an 80% narrowing ostially, status post thrombectomy with shockwave treatment with stent placement, 3.5 x 22 mm Hamilton stent, postdilated to 4.1 mm. MEEHAN to the LAD was patent. [place] LAD was occluded. Ejection fraction was less than 25% with LVEDP of 15 mmHg with no gradient across the aortic valve. Underlying rhythm was atrial fibrillation. The patient will require further intervention of the left main and the [place] circumflex where the OM graft is closed, but is highly is still patent with a severe diffuse disease. The patient underwent successful angioplasty with stent placement of the saphenous vein graft to the PDA. DATE OF SURGERY: 07/28/2024 PROCEDURES PERFORMED: * Left heart catheterization. * Conscious sedation. * Left subclavian angiography. DESCRIPTION OF PROCEDURE: The patient was prepped and draped under sterile condition. Xylocaine 1% used to anesthetize the right groin. Using a Cook needle, right femoral artery was engaged with Seldinger technique, a 6-Luxembourger sheath in the right femoral artery. Using 6-Luxembourger MEEHAN diagnostic catheter, angiography of the left subclavian, left internal mammary artery was performed. Then, using 6-Luxembourger XB 3.5 guide catheter, left coronary angiography was performed. There were no complications. The patient tolerated the procedure well. Results showed the patient's MEEHAN to the LAD was patent. The patient's left main disease was actually 99% that was supplying the left anterior descending artery, which was bypassed to the left anterior descending artery. Therefore, at this time, no revascularization of the left main is required since the patient was getting adequate flow from the left thoracic artery left internal mammary artery. Initial angiogram suggested that the artery may be the circumflex multiple views taken and multiple projections taken, it was clear that was the left anterior descending artery not the circumflex. The circumflex artery itself is nondominant small vessel, does not require any intervention at this time. Condition at Discharge: Fair Final Diagnosis/Problems List Acute chest pain likely due to ACS NSTEMI likely type II Atrial fibrillation with RVR, currently rate control Acute respiratory failure likely due to Gram-positive/Gram-negative bacterial pneumonia Possible septic shock due to bacterial pneumonia Possible cardiogenic shock due to low LVEF and CAD Hypotension due to above Hypothyroidism Moderate normocytic normochromic anemia, R/O possible GI bleed History of pacemaker, CVAx5, hyperlipidemia History of liver cirrhosis and thrombocytopenia Severe protein malnutrition [facility] Discharge Instruct/Medications Diet: Cardiac 2g Na,low cholest Activity: No Restrictions, As Tolerated Follow Up/Referral: F/U with his PCP in 1 week F/U with his administrative fellow Dr. Huerta in 2 weeks Medications: Metoprolol succinate 25mg daily Amiodarone 200mg daily stop lisinopril (Low BP) Stop hydrochlorothiazide Continue rest of medications Discharge Statement: "Patient was advised to return to the ER or call 911 if any headaches, dizziness, shortness of breath, chest pain, abdominal pain, bleeding, fevers, or worsening of medical condition. Patient was counseled about treatment plan, medications, possible side effects, patientverbalized understanding. All questions were answered to the best of my ability. This discharge took greater then 30 minutes in planning, reviewing documentation, counseling the patient, and discussing with other team members." ASSESSMENT ASSESSMENT Assessment Acute chest pain likely due to ACS NSTEMI likely type II Atrial fibrillation with RVR, currently rate control Acute respiratory failure likely due to Gram-positive/Gram-negative bacterial pneumonia Possible septic shock due to bacterial pneumonia Possible cardiogenic shock due to low LVEF and CAD Hypotension due to above Hypothyroidism Moderate normocytic normochromic anemia, R/O possible GI bleed History of pacemaker, CVAx5, hyperlipidemia History of liver cirrhosis and thrombocytopenia Severe protein malnutrition Date of Service: Jul 29, 2024 Billing Provider: TRIPP HI MD Common Visit Codes: 49813-BVT/OBS DISCH DAY >30min NOAH SINGH RESIDENT Jul 29, 2024 15:06 TRIPP HI MD Jul 29, 2024 18:19
== END 2024-07-29 19:14 | DRG 853 ==
LOC: EDBD 00:17 → ER 00:24 → OVERFLOW 11:33 → UNDOADMIN 11:33 → OVERFLOW 12:06 → ICU WEST 07-21 02:15 → TELE-WESTW 07-22 16:00
PROVIDERS: ADMIT Internal Medicine; ATTEND Internal Medicine
PROC: 027034Z Dilation of Coronary Artery, One Artery with Drug-eluting Intraluminal Device, Percutaneous Approach (ICD-10-PCS; principal; 2024-07-21)
PROC: 02F03ZZ Fragmentation in Coronary Artery, One Artery, Percutaneous Approach (ICD-10-PCS; 2024-07-21)
PROC: 02C03ZZ Extirpation of Matter from Coronary Artery, One Artery, Percutaneous Approach (ICD-10-PCS; 2024-07-21)
PROC: 4A023N7 Measurement of Cardiac Sampling and Pressure, Left Heart, Percutaneous Approach (ICD-10-PCS; 2024-07-21)
PROC: B211YZZ Fluoroscopy of Multiple Coronary Arteries using Other Contrast (ICD-10-PCS; 2024-07-21)
PROC: B213YZZ Fluoroscopy of Multiple Coronary Artery Bypass Grafts using Other Contrast (ICD-10-PCS; 2024-07-21)
PROC: B215YZZ Fluoroscopy of Left Heart using Other Contrast (ICD-10-PCS; 2024-07-21)
PROC: 05HB33Z Insertion of Infusion Device into Right Basilic Vein, Percutaneous Approach (ICD-10-PCS; 2024-07-26)
PROC: B54MZZA Ultrasonography of Right Upper Extremity Veins, Guidance (ICD-10-PCS; 2024-07-26)
PROC: B218YZZ Fluoroscopy of Left Internal Mammary Bypass Graft using Other Contrast (ICD-10-PCS; 2024-07-28)
PROC: B211YZZ Fluoroscopy of Multiple Coronary Arteries using Other Contrast (ICD-10-PCS; 2024-07-28)
PROC: B517YZZ Fluoroscopy of Left Subclavian Vein using Other Contrast (ICD-10-PCS; 2024-07-28)
DX: A41.59 Other Gram-negative sepsis (principal); E43 Unspecified severe protein-calorie malnutrition; J15.69 Pneumonia due to other Gram-negative bacteria; J96.21 Acute and chronic respiratory failure with hypoxia; R65.21 Severe sepsis with septic shock; J15.9 Unspecified bacterial pneumonia; R57.0 Cardiogenic shock; I21.A1 Myocardial infarction type 2; K92.2 Gastrointestinal hemorrhage, unspecified; D68.9 Coagulation defect, unspecified; J44.0 Chronic obstructive pulmonary disease with (acute) lower respiratory infection; I11.0 Hypertensive heart disease with heart failure; I48.91 Unspecified atrial fibrillation; D64.9 Anemia, unspecified; E03.9 Hypothyroidism, unspecified; E78.5 Hyperlipidemia, unspecified; I25.10 Atherosclerotic heart disease of native coronary artery without angina pectoris; K74.60 Unspecified cirrhosis of liver; D69.6 Thrombocytopenia, unspecified; Z95.5 Presence of coronary angioplasty implant and graft; Z95.1 Presence of aortocoronary bypass graft; Z79.82 Long term (current) use of aspirin; Z79.02 Long term (current) use of antithrombotics/antiplatelets; Z86.73 Personal history of transient ischemic attack (TIA), and cerebral infarction without residual deficits; Z95.0 Presence of cardiac pacemaker; Z68.21 Body mass index [BMI] 21.0-21.9, adult; Z79.899 Other long term (current) drug therapy
CPT/HCPCS: 36225; 36415; 71045; 76700; 80048; 80053; 80162; 80307; 81001; 82270; 82607; 82728; 82746; 83540; 83550; 83605; 83735; 83880; 84443; 84484; 85025; 85610; 85730; 86141; 86704; 86706; 86708; 86803; 86850; 86900; 86901; 87040; 87081; 87086; 87340; 87426; 87804; 92610; 92941; 92972; 92973; 93005; 93306; 93454; 93459; 93971; 94640; 97110; 97116; 97163; 97530; 99152; C1874; C1887; G0378; J2003; J2250; J2470; J2543; J3480; P9047; Q9967